=== PATIENT | female | born 1955 | race Caucasian/White ===

== ENCOUNTER 2022-01-05 10:11 | Inpatient (IN) ==
[2022-01-05] MEDS ORDERED: IOPAMIDOL 100 ML BOTTLE IV ONE (10:12)
[2022-01-05] MEDS ORDERED: 0.9 % SODIUM CHLORIDE 1,000 ML IV ONE (10:19)
[2022-01-05] MEDS ORDERED: POTASSIUM CHLORIDE 20 MEQ PACKET PO ONE (10:37)
[2022-01-05] MEDS ORDERED: POTASSIUM CHLORIDE 80 MEQ in DEXTROSE 5% IN WATER 1,000 ML IV ONE (10:37)
[2022-01-05] MEDS ORDERED: MAGNESIUM SULFATE 2 GM/50 ML BAG IV ONE ×2 (10:37→19:15)
[2022-01-05 10:38] LABS: POC Blood Urea Nitrogen 38 mg/dL (6-20); POC CO2 12 mmol/L (22-30); POC Calcium, Ionized 1.26 mmEq/L (1.16-1.32); POC Chloride 104 mEq/L (96-108); POC Creatinine 0.5 mg/dL (0.6-1.2); POC Glucose, Random 685 mg/dL (70-105); POC Hematocrit 44 % (36-48); POC Potassium 2.7 mEql/L (3.3-5.1); POC Sodium 133 mEq/L (133-145)
[2022-01-05] MEDS ORDERED: VANCOMYCIN PER PHARMACY IV ONE (10:49)
[2022-01-05] MEDS ORDERED: PIPERACILLIN SODIUM/TAZOBACTAM 4.5 GM in DEXTROSE 5% IN WATER 50 ML IV ONE (10:49)
[2022-01-05] MEDS ORDERED: LACTATED RINGERS 1,000 ML IV ONE ×2 (10:52→12:41)
--- NOTE | 2022-01-05 10:56 | Emergency Department Note ---
HPI General Chief complaint: Nausea/Vomiting/Diarrhea Stated complaint: Nausea/Vomiting, Elevated Blood Glucose Time Seen by Provider: 01/05/22 10:35 Source: patient Mode of arrival: ambulatory Limitations: no limitations History of Present Illness HPI Narrative: Patient is a 66-year-old lady who arrives emergency department by ambulance complaining of nausea and vomiting. The patient says she has been having nausea vomiting and difficulty tolerating food for about the last week. This is gradual in onset and has been progressively worsening. She has mild poorly localized abdominal pain associated with this. She denies any associated diarrhea. She has had subjective fever and chills as well. The patient also notes that several days ago she developed a boil in her groin and that recently ruptured and has been draining. This is moderately painful. She has never had anything like this before. She does not have any known medical conditions but is not seen a doctor for many years. Related Data Allergies Allergy/AdvReac Type Severity Reaction Status Date / Time codeine Allergy Intermediate Anxiety Verified 01/05/22 11:08 Review of Systems ROS ROS Narrative: Narrative: All systems ED: reviewed and negative except as stated. 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 Gen -patient is awake and alert and appears uncomfortable but in no acute distress. The patient is well groomed. HEENT -head is atraumatic. There is no conjunctival pallor or scleral icterus. Mucous membranes are very dry. CV -S1-S2 tachycardic and regular. Peripheral pulses are palpable. There is no JVD. Resp -patient has deep rapid respirations. Lungs are clear to auscultation bilaterally. There is no cyanosis. GI - Abdomen is soft and mildly tender to palpation diffusely. There is no guarding or rebound tenderness. Derm -there is a small ulcer in the left groin just lateral to the labia that is quite tender to palpation and draining thin clear fluid. There is exquisite tenderness to palpation of the suprapubic region as well as moderate underlying edema and erythema. There is no palpable crepitus or fluctuance to the soft tissues. There is mild erythema that blanches to light palpation in the groin. MSK -present extremities are atraumatic. Psych -patient has appropriate affect. The patient does not appear internally stimulated. Neuro -patient answers questions appropriately with fluent speech. Patient moves all present extremities equally. General Limitations: no limitations Course Vital Signs Vital signs: Vital Signs Temperature 97.7 F 01/05/22 10:13 Pulse Rate 112 H 01/05/22 10:13 Respiratory Rate 26 H 01/05/22 10:13 Blood Pressure 136/76 01/05/22 10:13 Pulse Oximetry (%) 97 01/05/22 10:13 Temperature 97.7 F 01/05/22 10:13 Pulse Rate 101 H 01/05/22 12:46 Respiratory Rate 23 H 01/05/22 12:46 Blood Pressure 178/79 01/05/22 12:46 Pulse Oximetry (%) 98 01/05/22 12:46 [facility] Narrative Medical decision making narrative: Patient presents with nausea vomiting and an inguinal lesion. Labs remarkable for hyperglycemia found hypokalemia and metabolic acidosis consistent with diabetic ketoacidosis. She also has a leukemoid white blood cell count. 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 Following my initial evaluation I did not initiate treatment with antibiotics for possible Stacy's gangrene. The patient's initial potassium was very low so I did not think would be safe to initiate an insulin drip. She was given IV fluids potassium and magnesium to facilitate absorption and repeat potassium shows significant improvement in her electrolytes. Given that we will initiate treatment with an insulin infusion. I discussed the patient's history examination diagnostic findings with Dr. Delaney. He will see the patient in the emergency department and will provide surgical management if the hospitalist service is able to provide medical management. I discussed the patient's history examination diagnostic finds with Dr. Langford. He accepts admission. I discussed the test results and need for operative intervention and glycemic control with the patient. She is agreeable with the plan. Critical care time I provided 38 minutes of critical care time. This was in addition to any separately billable procedures. The patient was given IV fluids and IV a ntibiotics to treat her necrotizing soft tissue infection. I obtained surgical consultation for definitive management of her infection. She was given IV insulin and IV fluids to treat her severe hyperglycemia and diabetic ketoacidosis. The patient was closely monitored for response to treatment and stability of vital signs throughout their emergency department stay. Lab Data Lab results reviewed: Yes I reviewed the patient's lab results. Result diagrams: 01/05/22 10:27 Labs: Lab Results 01/05/22 01/05/22 01/05/22 Range/Units 10:26 10:26 10:27 WBC 30.2 H* (4.5-11.0) K/mcL RBC 4.98 (3.59-5.38) M/mcL Hgb 13.9 (11.2-15.7) g/dL Hct 41.9 (34.1-44.9) % POC Hct 44 (36-48) % MCV 84.1 (80.0-100.0) fL MCH 27.9 (26.0-34.0) pg MCHC 33.2 (31.0-36.0) g/dL RDW 12.4 (11.5-14.5) % Plt Count 438 (140-440) K/mcL MPV 9.7 (7.4-10.4) fL Neut % (Auto) 88.1 H (38.0-78.0) % Lymph % (Auto) 3.1 L (15.5-49.0) % [place] % (Auto) 8.0 (1.0-12.0) % Eos % (Auto) 0.4 (0.0-7.0) % Baso % (Auto) 0.4 (0.0-2.0) % Lymph # (Auto) 0.95 L (1.50-4.80) K/mcL [place] # (Auto) 2.41 H (0.10-0.90) K/mcL Eos # (Auto) 0.13 (0.00-0.70) K/mcL Baso # (Auto) 0.12 (0.00-0.30) K/mcL Absolute Neutrophils 26.55 H (1.80-8.00) K/mcL VBG Lactic Acid (0.5-2.0) mmol/L POC Sodium 133 (133-145) mEq/L POC Potassium 2.7 L* (3.3-5.1) mEql/L POC Chloride 104 (96-108) mEq/L POC Total CO2 12 L (22-30) mmol/L POC BUN 38 H (6-20) mg/dL POC Creatinine 0.5 L (0.6-1.2) mg/dL POC Glucose 685 H* (70-105) mg/dL POC WB Ioniz Calcium 1.26 (1.16-1.32) mmEq/L Total Bilirubin (0.1-1.0) mg/dL Direct Bilirubin (0-0.3) mg/dL AST (<32) U/L ALT (<40) U/L Alkaline Phosphatase (39-117) U/L Total Protein (5.9-8.4) gm/dL Albumin (3.2-5.2) gm/dL Globulin (2.2-3.7) gm/dL Beta-Hydroxybutyrate 6.07 H (<0.27) mmol/L Urine Color Urine Appearance (Clear) Urine pH (5.0-9.0) Ur Specific [place] (1.000-1.035) Urine Protein (Negative) mg/dL Urine Glucose (UA) (Negative) mg/dL Urine Ketones (Negative) mg/dL Urine Occult Blood (Negative) joce/mcL Urine Nitrate (Negative) Urine Bilirubin (Negative) mg/dL Urine Urobilinogen mg/dL Ur Leukocyte Esterase (Negative) /uL Urine RBC (0-3) /hpf Urine WBC (0-4) /hpf Ur Squamous Epith Cells (0-4) /hpf Urine Bacteria (0) /hpf Urine Mucus (None) /hpf Ur Culture Indicated? 01/05/22 01/05/22 01/05/22 Range/Units 10:27 11:13 11:48 WBC (4.5-11.0) K/mcL RBC (3.59-5.38) M/mcL Hgb (11.2-15.7) g/dL Hct (34.1-44.9) % POC Hct (36-48) % MCV (80.0-100.0) fL MCH (26.0-34.0) pg MCHC (31.0-36.0) g/dL RDW (11.5-14.5) % Plt Count (140-440) K/mcL MPV (7.4-10.4) fL Neut % (Auto) (38.0-78.0) % Lymph % (Auto) (15.5-49.0) % [place] % (Auto) (1.0-12.0) % Eos % (Auto) (0.0-7.0) % Baso % (Auto) (0.0-2.0) % Lymph # (Auto) (1.50-4.80) K/mcL [place] # (Auto) (0.10-0.90) K/mcL Eos # (Auto) (0.00-0.70) K/mcL Baso # (Auto) (0.00-0.30) K/mcL Absolute Neutrophils (1.80-8.00) K/mcL VBG Lactic Acid 1.7 (0.5-2.0) mmol/L POC Sodium (133-145) mEq/L POC Potassium (3.3-5.1) mEql/L POC Chloride (96-108) mEq/L POC Total CO2 (22-30) mmol/L POC BUN (6-20) mg/dL POC Creatinine (0.6-1.2) mg/dL POC Glucose (70-105) mg/dL POC WB Ioniz Calcium (1.16-1.32) mmEq/L Total Bilirubin < 0.2 (0.1-1.0) mg/dL Direct Bilirubin < 0.2 (0-0.3) mg/dL AST 8 (<32) U/L ALT 8 (<40) U/L Alkaline Phosphatase 180 H (39-117) U/L Total Protein 6.7 (5.9-8.4) gm/dL Albumin 3.0 L (3.2-5.2) gm/dL Globulin 3.7 (2.2-3.7) gm/dL Beta-Hydroxybutyrate (<0.27) mmol/L Urine Color Yellow Urine Appearance Clear (Clear) Urine pH 5.0 (5.0-9.0) Ur Specific [place] 1.020 (1.000-1.035) Urine Protein Negative (Negative) mg/dL Urine Glucose (UA) 500 mg/dl A (Negative) mg/dL Urine Ketones >=160 mg/dl A (Negative) mg/dL Urine Occult Blood Moderate A (Negative) joce/mcL Urine Nitrate Negative (Negative) Urine Bilirubin Negative (Negative) mg/dL Urine Urobilinogen Normal mg/dL Ur Leukocyte Esterase Negative (Negative) /uL Urine RBC 0 (0-3) /hpf Urine WBC 1 (0-4) /hpf Ur Squamous Epith Cells < 1 (0-4) /hpf Urine Bacteria None (0) /hpf Urine Mucus Few A (None) /hpf Ur Culture Indicated? No 01/05/22 Range/Units 12:45 WBC (4.5-11.0) K/mcL RBC (3.59-5.38) M/mcL Hgb (11.2-15.7) g/dL Hct (34.1-44.9) % POC Hct 43 (36-48) % MCV (80.0-100.0) fL MCH (26.0-34.0) pg MCHC (31.0-36.0) g/dL RDW (11.5-14.5) % Plt Count (140-440) K/mcL MPV (7.4-10.4) fL Neut % (Auto) (38.0-78.0) % Lymph % (Auto) (15.5-49.0) % [place] % (Auto) (1.0-12.0) % Eos % (Auto) (0.0-7.0) % Baso % (Auto) (0.0-2.0) % Lymph # (Auto) (1.50-4.80) K/mcL [place] # (Auto) (0.10-0.90) K/mcL Eos # (Auto) (0.00-0.70) K/mcL Baso # (Auto) (0.00-0.30) K/mcL Absolute Neutrophils (1.80-8.00) K/mcL VBG Lactic Acid (0.5-2.0) mmol/L POC Sodium 134 (133-145) mEq/L POC Potassium 3.8 (3.3-5.1) mEql/L POC Chloride 110 H (96-108) mEq/L POC Total CO2 10 L (22-30) mmol/L POC BUN 41 H (6-20) mg/dL POC Creatinine 0.4 L (0.6-1.2) mg/dL POC Glucose 542 H* (70-105) mg/dL POC WB Ioniz Calcium 1.15 L (1.16-1.32) mmEq/L Total Bilirubin (0.1-1.0) mg/dL Direct Bilirubin (0-0.3) mg/dL AST (<32) U/L ALT (<40) U/L Alkaline Phosphatase (39-117) U/L Total Protein (5.9-8.4) gm/dL Albumin (3.2-5.2) gm/dL Globulin (2.2-3.7) gm/dL Beta-Hydroxybutyrate (<0.27) mmol/L Urine Color Urine Appearance (Clear) Urine pH (5.0-9.0) Ur Specific [place] (1.000-1.035) Urine Protein (Negative) mg/dL Urine Glucose (UA) (Negative) mg/dL Urine Ketones (Negative) mg/dL Urine Occult Blood (Negative) joce/mcL Urine Nitrate (Negative) Urine Bilirubin (Negative) mg/dL Urine Urobilinogen mg/dL Ur Leukocyte Esterase (Negative) /uL Urine RBC (0-3) /hpf Urine WBC (0-4) /hpf Ur Squamous Epith Cells (0-4) /hpf Urine Bacteria (0) /hpf Urine Mucus (None) /hpf Ur Culture Indicated? ED POC Tests ED POC Tests: MARY - SARS Antigen Negative EKG Data EKG #1: EKG attestation: Yes I reviewed and interpreted this EKG. EKG results narrative: EKG performed at 12:58 PM: Sinus rhythm with PVCs, rate 107. Normal P wave morphology. Poor R wave progression throughout the precordial leads. No ST segment deviation. Normal IL QRS and QTc duration. No old EKG immediately available for comparison. EKG was interpreted by me. 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
[2022-01-05 11:16] LABS: Basophils # (Auto) 0.12 K/mcL (0.00-0.30); Basophils % (Auto) 0.4 % (0.0-2.0); Eosinophils # (Auto) 0.13 K/mcL (0.00-0.70); Eosinophils % (Auto) 0.4 % (0.0-7.0); Hematocrit 41.9 % (34.1-44.9); Hemoglobin 13.9 g/dL (11.2-15.7); Lymphocytes # (Auto) 0.95 K/mcL (1.50-4.80); Lymphocytes % (Auto) 3.1 % (15.5-49.0); Mean Cell Volume 84.1 fL (80.0-100.0); Mean Corpuscular HGB Conc 33.2 g/dL (31.0-36.0); Mean Platelet Volume 9.7 fL (7.4-10.4); Monocytes # (Auto) 2.41 K/mcL (0.10-0.90); Platelet Count 438 K/mcL (140-440); RBC 4.98 M/mcL (3.59-5.38); Red Cell Distribution Width 12.4 % (11.5-14.5); WBC 30.2 K/mcL (4.5-11.0)
[2022-01-05 12:19] LABS: ALT/SGPT 8 U/L (<40); AST/SGOT 8 U/L (<32); Alkaline Phosphatase 180 U/L (39-117); Bilirubin,Direct < 0.2 mg/dL (0-0.3); Bilirubin,Total < 0.2 mg/dL (0.1-1.0); Globulin 3.7 gm/dL (2.2-3.7)
[2022-01-05 12:33] LABS: Appearance,Urine Clear (Clear); Bilirubin,Urine Negative (Negative); Color,Urine Yellow; Culture Indicated,Urine No; Ketones,Urine >=160 mg/dL mg/dL (Negative); Leukocyte Esterase,Urine Negative /uL (Negative); Mucus,Urine FEW /hpf; Nitrate,Urine Negative (Negative); Protein,Urine Negative (Negative); Urine Blood Moderate ery/mcL (Negative); Urine RBC 0 /hpf (0-3); Urine Squamous Epithelial Cell < 1 /hpf (0-4); Urine WBC 1 /hpf (0-4); Urobilinogen,Urine Normal
[2022-01-05 12:55] LABS: POC Blood Urea Nitrogen 41 mg/dL (6-20); POC CO2 10 mmol/L (22-30); POC Calcium, Ionized 1.15 mmEq/L (1.16-1.32); POC Chloride 110 mEq/L (96-108); POC Creatinine 0.4 mg/dL (0.6-1.2); POC Glucose, Random 542 mg/dL (70-105); POC Hematocrit 43 % (36-48); POC Potassium 3.8 mEql/L (3.3-5.1); POC Sodium 134 mEq/L (133-145)
[2022-01-05] MEDS ORDERED: SODIUM CHLORIDE 0.9% IV ONE (13:00)
[2022-01-05] MEDS ORDERED: POTASSIUM CHLORIDE IV ONE (13:00)
[2022-01-05] MEDS ORDERED: INSULIN REGULAR, HUMAN 50 UNIT in 0.9 % SODIUM CHLORIDE 99.5 ML IV SCH (13:15)
--- NOTE | 2022-01-05 13:20 | Cat Scan Report ---
CLINICAL INFORMATION: Left vulvar pain and swelling COMPARISON: None. TECHNIQUE:, 80 cc of Isovue-370 were injected intravenously, and 60 seconds later, 0.625 mm helical slices were made kidneys through the subtrochanteric regions Following reconstruction, 2.5 mm sagittal, coronal and axial reformatted images were processed and reviewed at bone soft tissue windows. The exam was performed using radiation dose optimization techniques including, but not limited to, automated exposure control, adjustment of the mA and/or kV according to patient size and use of iterative reconstruction technique. FINDINGS: In the subcutaneous fat of the left lower anterior pelvic wall , there is a 10 cm region of gas and phlegmonous inflammation which extends to the left lateral perivulvar region. It is suspicious for Stacy's gangrene. Muscle fascial planes are, otherwise, normal. Pelvic images show normal urinary bladder. Uterus and both ovaries are normal in size, configuration and attenuation. The visualized small bowel, appendix region and large bowel are grossly normal. Bone windows show no osseous abnormality IMPRESSION: 10 cm region of extensive gas and phlegmonous inflammation in the subcutaneous fat of the left lower anterior pelvic wall with extension into the left lateral perivulvar region. Findings suggestive of Stacy's gangrene. Interpreted and Authenticated by: Neeraj Calloway 01/05/22
--- NOTE | 2022-01-05 13:42 | Internal Med History&Physical ---
HPI History of Present Illness Patient information: Note initiated : 01/05/22 at 1:33 pm Service Date, if different from initiated Date: [] Patient: Amber Navarro a 66 y/o F admitted on for Nausea/Vomiting, Elevated Blood Glucose. Chief Complaint: [groin pain, weakness] Chief complaint: groin pain, weakness History of present illness: Ms. Navarro is a 66 year old F no past medical history, presenting with general body weakness and left groin pain for 2 weeks. There was no prior similar episode. Patient does not remember any trauma or injury to her groin but she does shave herself. About 2 weeks ago she started to notice pain and swelling of her left groin around her labia majora, and it burst open spontaneously about 4 days ago. It is associated with severe aching constant pain of her entire left groin with radiation to the surrounding body regions. She is also complaining of general body weakness, decreased appetite, fever and chills. She presented to our ED today due to worsening of her symptoms. Labs significant for severe leukocytosis with WBC 30.2. Initial serum potassium level 2.7, initial POC glucose 685. BUN and creatinine 38 and 0.5, respectively suggesting degree of dehydration as well. Serum bicarb of 12 and anion gap of 17. Beta hydroxybutyrate also elevated. Serum lactic acid 1.7. Pelvic CT showing 10 cm region of extensive gas and phlegmonous inflammation in the subcutaneous fat of the left lower anterior pelvic wall with extension into the left lateral perivalvular regions. Findings suggestive of Stacy's gangrene. Constitutional Constitutional: Present chills, fatigue, fever(s) and weakness; Absent excessive sweating EENT Eyes: Absent blurry vision, change in vision, loss of vision or other visual disturbances Ears: Absent decreased hearing or tinnitus Nose, mouth and throat: Absent abnormal hearing, dry mouth, headache(s), nasal congestion or sore throat Cardiovascular Cardiovascular: Absent chest pain, chest pain at rest, edema, irregular heart rhythm or palpatations Respiratory Respiratory: Absent cough, dyspnea or wheezing Gastrointestinal Gastrointestinal: Absent abdominal pain, constipation, diarrhea, nausea or vomiting Genitourinary Genitourinary: Present as per HPI Musculoskeletal Musculoskeletal: Absent back pain, deformity, limited range of motion, muscle cramps, muscle weakness or numbness Integumentary Integumentary: Absent lesions, rash or wounds Neurological Neurological: Absent focal weakness, headache(s) or numbness Psychiatric Psychiatric: Absent anxiety, depression or hallucinations PFSH PFSH All Active Problems (Updated 01/05/22 @ 13:43 by Tae Langford MD) Hypokalemia (Acute) Diabetic keto-acidosis (Acute) 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) Social History alcohol intake frequency: does not drink substance use type: marijuana MEDS/ALLERGIES Home Medications and Allergies Allergies Allergy/AdvReac Type Severity Reaction Status Date / Time codeine Allergy Intermediate Anxiety Verified 01/05/22 11:08 EXAM Constitutional Vitals: Temp Pulse Resp BP Pulse Ox 36.5 C 108 H 21 178/79 100 01/05/22 10:13 01/05/22 13:23 01/05/22 13:23 01/05/22 12:46 01/05/22 13:23 General appearance: cooperative and no acute distress Head Head exam: Present atraumatic and normocephalic Eye Eye exam: Present EOMI and PERRL ENT ENT exam: Present mucous membranes moist, normal exam and normal external ear exam Neck Neck exam: Present normal inspection; Absent lymphadenopathy, tenderness or thyromegaly Respiratory Respiratory exam: Absent accessory muscle use, respiratory distress or wheezes Cardiovascular Cardiovascular exam: Present tachycardia GI/Abdominal GI/Abdominal exam: Present normal bowel sounds and soft; Absent organomegaly or tenderness External exam: Present erythema and lesions; Absent normal external exam Additional comments: tenderness to palpation, induration, swelling, warmth to touch, 5mm opening with foul smell pustular discharge of the left labia majora Extremities Exam Extremities exam: Present full ROM, normal capillary refill and normal inspection; Absent tenderness Neurological Exam Neurological exam: Present alert, CN II-XII intact and oriented X3; Absent motor sensory deficit Psychiatric Psychiatric exam: Present normal affect and normal mood; Absent anxious or depressed Skin Skin exam: Present dry and intact DATA Data Completed and Pending Labs: Labs from last 24 hours 01/05/22 01/05/22 01/05/22 12:45 11:48 11:13 WBC RBC Hgb Hct POC Hct 43 MCV MCH MCHC RDW Plt Count MPV Neut % (Auto) Lymph % (Auto) [place] % (Auto) Eos % (Auto) Baso % (Auto) Lymph # (Auto) [place] # (Auto) Eos # (Auto) Baso # (Auto) Absolute Neutrophils VBG Lactic Acid 1.7 POC Sodium 134 POC Potassium 3.8 POC Chloride 110 H POC Total CO2 10 L POC BUN 41 H POC Creatinine 0.4 L POC Glucose 542 H* POC WB Ioniz Calcium 1.15 L Total Bilirubin Direct Bilirubin AST ALT Alkaline Phosphatase Total Protein Albumin Globulin Beta-Hydroxybutyrate Urine Color Yellow Urine Appearance Clear Urine pH 5.0 Ur Specific [place] 1.020 Urine Protein Negative Urine Glucose (UA) 500 mg/dl A Urine Ketones >=160 mg/dl A Urine Occult Blood Moderate A Urine Nitrate Negative Urine Bilirubin Negative Urine Urobilinogen Normal Ur Leukocyte Esterase Negative Urine RBC 0 Urine WBC 1 Ur Squamous Epith Cells < 1 Urine Bacteria None Urine Mucus Few A Ur Culture Indicated? No 01/05/22 01/05/22 01/05/22 10:27 10:27 10:26 WBC 30.2 H* RBC 4.98 Hgb 13.9 Hct 41.9 POC Hct MCV 84.1 MCH 27.9 MCHC 33.2 RDW 12.4 Plt Count 438 MPV 9.7 Neut % (Auto) 88.1 H Lymph % (Auto) 3.1 L [place] % (Auto) 8.0 Eos % (Auto) 0.4 Baso % (Auto) 0.4 Lymph # (Auto) 0.95 L [place] # (Auto) 2.41 H Eos # (Auto) 0.13 Baso # (Auto) 0.12 Absolute Neutrophils 26.55 H VBG Lactic Acid POC Sodium POC Potassium POC Chloride POC Total CO2 POC BUN POC Creatinine POC Glucose POC WB Ioniz Calcium Total Bilirubin < 0.2 Direct Bilirubin < 0.2 AST 8 ALT 8 Alkaline Phosphatase 180 H Total Protein 6.7 Albumin 3.0 L Globulin 3.7 Beta-Hydroxybutyrate 6.07 H Urine Color Urine Appearance Urine pH Ur Specific [place] Urine Protein Urine Glucose (UA) Urine Ketones Urine Occult Blood Urine Nitrate Urine Bilirubin Urine Urobilinogen Ur Leukocyte Esterase Urine RBC Urine WBC Ur Squamous Epith Cells Urine Bacteria Urine Mucus Ur Culture Indicated? 01/05/22 10:26 WBC RBC Hgb Hct POC Hct 44 MCV MCH MCHC RDW Plt Count MPV Neut % (Auto) Lymph % (Auto) [place] % (Auto) Eos % (Auto) Baso % (Auto) Lymph # (Auto) [place] # (Auto) Eos # (Auto) Baso # (Auto) Absolute Neutrophils VBG Lactic Acid POC Sodium 133 POC Potassium 2.7 L* POC Chloride 104 POC Total CO2 12 L POC BUN 38 H POC Creatinine 0.5 L POC Glucose 685 H* POC WB Ioniz Calcium 1.26 Total Bilirubin Direct Bilirubin AST ALT Alkaline Phosphatase Total Protein Albumin Globulin Beta-Hydroxybutyrate Urine Color Urine Appearance Urine pH Ur Specific [place] Urine Protein Urine Glucose (UA) Urine Ketones Urine Occult Blood Urine Nitrate Urine Bilirubin Urine Urobilinogen Ur Leukocyte Esterase Urine RBC Urine WBC Ur Squamous Epith Cells Urine Bacteria Urine Mucus Ur Culture Indicated? 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 Delaney for surgical management Tylenol PRN fever Percocet PRN moderate pain Dilaudid IV PRN severe pain 3. Hypokalemia: s/p IV potassium replacement in the ED 1/2NS w/ KCl 20mEq @250cc/hr when anion gap is elevated (>14) and blood glucose >=200 D5 1/2NS w/ KCl 20mEq @250cc/hr when anion gap is elevated (>14) and blood glucose <200 Also check serum Mg and replace as needed GI ppx: not currently indicated DVT ppx: SCDs Code status: Full Prognosis: extremely guarded Disposition: inpatient ICU Critical Care Time: 1hr Time Spent With Patient Time: Total time spent is greater than 50% in coordination of care (as documented) at patient's floor/unit and/or counseling patient: Total time spent with greater than 50% in coordination of care (as documented) at patient's floor/unit and/or counseling patient:: Greater than 35 minutes
--- NOTE | 2022-01-05 13:55 | General Surgery Consult Note ---
HPI Data of Consult Patient: new to practice Consult date: 01/05/22 Requesting physician: Luis Guzman Primary Care Provider: PCP No Consult Narrative Chief complaint: Pain and soreness in region of genitalia Reason for consult: Stacy's Gangrene History of present illness: Amber is seen in consultation in the ER after presenting with nausea, vomiting and generalized symptoms of severe malaise. Work up revealed findings of Diabetic Ketoacidosis as well as a soft tissue infection involving the left genitalia and suprapubic region. She has had an open sore there draining some fluid for an unkown period of time. CT Scan has confirmed clinical findings and we were asked to see her in consultation. She has no known cardiopulmonary issues but has been absent any real medical care for many years per her history and was unaware she is diabetic. She is not on any oral anticoagulants and denies any prior heart issues. She does not have chest pains or use oxygen. 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) Social History alcohol intake frequency: does not drink substance use type: marijuana MEDS/ALLERGIES Home Medications and Allergies Allergies Allergy/AdvReac Type Severity Reaction Status Date / Time codeine Allergy Intermediate Anxiety Verified 01/05/22 11:08 Physical Examination Vital Signs Vital signs: Temp Pulse Resp BP Pulse Ox 97.7 F 108 H 21 178/79 100 01/05/22 10:13 01/05/22 13:23 01/05/22 13:23 01/05/22 12:46 01/05/22 13:23 General physical appearance General physical exam: moderate distress, moderate pain and chronically ill Eyes Eye exam: normal ocular movement; negative icteric ENT ENT exam: normal pinna Head Head exam IM: Present atraumatic, normal inspection and normocephalic Neck Neck exam: trachea midline and no lymphadenopathy Cardiovascular Cardiovascular exam IM: Present normal rate and rhythm (mildy tachycardic ) and RRR Respiratory Respiratory exam: normal respiratory effort and other (no respiratory distress ) Abdomen Abdomen: Present soft and tender (TTP in the indurated suprapubic region ) Genitourinary Genitourinary (Female): Present other (swollen genitalia with severe pain and induration involving the left perivulvar/paralabial region that continues up to the suprapubic region with a small ulcerated opening on the left side as well ) Rectum Rectum: Present other (the perianal area seems uninvolved and does not appear to be a source of infection ) Neurologic Neurologic: Present other (awake and conversant with some confusion ) Psychiatric Psychiatric: Present other (awake and conversant ) Results Labs Result diagrams: 01/05/22 10:27 01/05/22 10:26 Labs: Abnormal lab results 01/05/22 01/05/22 01/05/22 Range/Units 10:26 10:26 10:27 WBC 30.2 H* (4.5-11.0) K/mcL Neut % (Auto) 88.1 H (38.0-78.0) % Lymph % (Auto) 3.1 L (15.5-49.0) % Lymph # (Auto) 0.95 L (1.50-4.80) K/mcL [place] # (Auto) 2.41 H (0.10-0.90) K/mcL Absolute Neutrophils 26.55 H (1.80-8.00) K/mcL POC Potassium 2.7 L* (3.3-5.1) mEql/L POC Chloride (96-108) mEq/L POC Total CO2 12 L (22-30) mmol/L POC BUN 38 H (6-20) mg/dL POC Creatinine 0.5 L (0.6-1.2) mg/dL POC Glucose 685 H* (70-105) mg/dL POC WB Ioniz Calcium (1.16-1.32) mmEq/L Alkaline Phosphatase (39-117) U/L Albumin (3.2-5.2) gm/dL Beta-Hydroxybutyrate 6.07 H (<0.27) mmol/L Urine Glucose (UA) (Negative) mg/dL Urine Ketones (Negative) mg/dL Urine Occult Blood (Negative) joce/mcL Urine Mucus (None) /hpf 01/05/22 01/05/22 01/05/22 Range/Units 10:27 11:48 12:45 WBC (4.5-11.0) K/mcL Neut % (Auto) (38.0-78.0) % Lymph % (Auto) (15.5-49.0) % Lymph # (Auto) (1.50-4.80) K/mcL [place] # (Auto) (0.10-0.90) K/mcL Absolute Neutrophils (1.80-8.00) K/mcL POC Potassium (3.3-5.1) mEql/L POC Chloride 110 H (96-108) mEq/L POC Total CO2 10 L (22-30) mmol/L POC BUN 41 H (6-20) mg/dL POC Creatinine 0.4 L (0.6-1.2) mg/dL POC Glucose 542 H* (70-105) mg/dL POC WB Ioniz Calcium 1.15 L (1.16-1.32) mmEq/L Alkaline Phosphatase 180 H (39-117) U/L Albumin 3.0 L (3.2-5.2) gm/dL Beta-Hydroxybutyrate (<0.27) mmol/L Urine Glucose (UA) 500 mg/dl A (Negative) mg/dL Urine Ketones >=160 mg/dl A (Negative) mg/dL Urine Occult Blood Moderate A (Negative) joce/mcL Urine Mucus Few A (None) /hpf Diabetes panel 01/05/22 Range/Units 10:27 AST 8 (<32) U/L ALT 8 (<40) U/L Alkaline Phosphatase 180 H (39-117) U/L Total Protein 6.7 (5.9-8.4) gm/dL Albumin 3.0 L (3.2-5.2) gm/dL Calcium panel 01/05/22 Range/Units 10:27 Albumin 3.0 L (3.2-5.2) gm/dL Adrenal panel 01/05/22 Range/Units 10:27 Total Bilirubin < 0.2 (0.1-1.0) mg/dL AST 8 (<32) U/L ALT 8 (<40) U/L Alkaline Phosphatase 180 H (39-117) U/L Total Protein 6.7 (5.9-8.4) gm/dL Albumin 3.0 L (3.2-5.2) gm/dL All other labs normal. 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 Agree with need for emergent surgery to Examine Under Anesthesia and proceed wi th aggressive washout and debridement Dr Langford has kindly agreed to admit and manage the patients contributory medical issues and we appreciate he and Dr Anthony assistance very much Issues regarding the diagnosis and planned intervention were discussed with the patient and her at length along with a full discussion of Risks, Benefits, Potential Complications and Alternative Treatment Options, all of which were reviewed and discussed at length with particular emphasis on the seriousness of the diagnosis and probable need for prolonged wound care. They indicate their understanding and give full consent Status: Acute Time Spent With Patient Time: Total time spent is greater than 50% in coordination of care (as documented) at patient's floor/unit and/or counseling patient:
[2022-01-05] MEDS: VANCOMYCIN 1,000 MG in 0.9 % SODIUM CHLORIDE 250 ML IV ONE ×2 (14:05→14:15)
[2022-01-05 14:31] LABS: ALT/SGPT 8 U/L (<40); AST/SGOT 9 U/L (<32); Alkaline Phosphatase 182 U/L (39-117); Bilirubin,Direct < 0.2 mg/dL (0-0.3); Bilirubin,Total < 0.2 mg/dL (0.1-1.0); Blood Urea Nitrogen 35 mg/dL (8-23); Calcium 8.9 mg/dL (8.6-10.4); Carbon Dioxide 11 mmol/L (22-30); Chloride 94 mmol/L (96-108); Glomerular Filtration Rate 75; Glucose 702 mg/dL (70-105); Lactate Dehydrogenase 238 U/L (135-225); Phosphorous 3.3 mg/dL (2.5-4.5); Triglycerides 223 mg/dL (<150); Uric Acid 9.6 mg/dL (2.5-8.0)
[2022-01-05] MEDS ORDERED: METOPROLOL TARTRATE 5 MG/5 ML VIAL IV PRN (15:11)
[2022-01-05] MEDS ORDERED: ACETAMINOPHEN 1,000 MG/100 ML BAG IV ONE (15:11)
[2022-01-05] MEDS ORDERED: NALOXONE HCL 0.4 MG/ML VIAL IV PRN (15:11)
[2022-01-05] MEDS ORDERED: IPRATROPIUM/ALBUTEROL 3 ML AMPUL.NEB NEB PRN ×2 (15:11→15:50)
[2022-01-05] MEDS ORDERED: LACTATED RINGERS 250 ML IV PRN (15:11)
[2022-01-05] MEDS ORDERED: ONDANSETRON 4 MG/2 ML VIAL IV PRN (15:11)
[2022-01-05] MEDS ORDERED: BENZOCAINE/MENTHOL 1 LOZENGE PO PRN (15:11)
[2022-01-05] MEDS ORDERED: FLUMAZENIL 0.1 MG/ML ML IV PRN (15:11)
[2022-01-05] MEDS ORDERED: LABETALOL 5 MG/ML ML IV PRN (15:11)
[2022-01-05] MEDS ORDERED: LACTATED RINGERS 1,000 ML IV SCH (15:15)
[2022-01-05] MEDS ORDERED: GENTAMICIN SULFATE 800 MG/20 ML VIAL IR ONE (15:16)
[2022-01-05] MEDS: fentaNYL 100 MCG/2 ML VIAL IV PRN ×2 (15:29→15:31)
[2022-01-05] MEDS ORDERED: VANCOMYCIN PER PHARMACY IV SCH (15:50)
[2022-01-05] MEDS ORDERED: ACETAMINOPHEN 325 MG TABLET PO PRN (15:50)
[2022-01-05] MEDS ORDERED: SENNOSIDES 8.8 MG/5 ML ML PT PRN (15:50)
[2022-01-05] MEDS: hydrALAZINE 20 MG/ML VIAL IV PRN (16:15)
[2022-01-05] MEDS: 0.9 % SODIUM CHLORIDE 10 ML SYRINGE IV SCH ×2 (16:15→22:01)
[2022-01-05 16:41] LABS: ABG Methemoglobin 0.1 % (0.4-1.5); Total Hemoglobin 12.9 gm/Dl (12.0-15.0); VBG Base Excess -14 (-2-3); VBG HCO3 13.9 mmol/L (24.0-28.0); VBG Oxygen Saturation 80.4 % (40.0-70.0); VBG PCO2 37.9 mmHg (41.0-51.0); VBG PH 7.18 U (7.32-7.42); VBG PO2 55.4 mmHg (25.0-40.0); VBG Total CO2 15.1 mmol/L (25.0-29.0)
[2022-01-05] MEDS: POTASSIUM CHLORIDE 20 MEQ in 0.45 % SODIUM CHLORIDE 1,000 ML IV SCH ×2 (16:44→21:09)
[2022-01-05] MEDS: PIPERACILLIN SODIUM/TAZOBACTAM 3.375 GM in DEXTROSE 5% IN WATER 50 ML IV SCH (16:47)
[2022-01-05 16:49] LABS: Carbon Dioxide 9 mmol/L (22-30); Chloride 92 mmol/L (96-108)
[2022-01-05] MEDS: DEXTROSE 5%-1/2NS W/20MEQ KCL 1,000 ML IV SCH ×4 (16:58→23:13)
--- NOTE | 2022-01-05 17:53 | Brief Operative Note ---
Brief Operative Note Date of procedure: 01/05/22 Pre-op diagnosis: Stacy's Gangrene Post-op diagnosis: same Procedure: Examination Under Anesthesia with Incision, Debridement and Washout Grafts/Implants: No Anesthesia: GETA Findings: Left Vulvar focus of Stacy's Gangrene with para-labial involvement and extension to the suprapubic region - cultures sent and debridement to healthy non necrotic margins; all areas of extensive necrosis debrided away Complications: none Surgeon: Trey Delaney Estimated blood loss (cc): 50 Specimens Removed/Pathology: other (swab cultures sent x 2 ) Condition: stable Disposition: PACU
[2022-01-05 18:04] LABS: Neutrophils % (Auto) 88.1 % (38.0-78.0)
[2022-01-05] MEDS: HYDROmorphone 0.5 MG/0.5 ML SYRINGE IV PRN (19:00)
[2022-01-05] MEDS ORDERED: fentaNYL 100 MCG/2 ML VIAL IV ONE (19:15)
[2022-01-05] MEDS ORDERED: KETAMINE 50 MG/ML Syringe (ANEST) IV ONE (19:15)
[2022-01-05] MEDS ORDERED: ONDANSETRON 4 MG/2 ML VIAL ONE (19:15)
[2022-01-05] MEDS ORDERED: LIDOCAINE HCL/PF 100 MG/5 ML SYRINGE IV ONE (19:15)
[2022-01-05] MEDS ORDERED: DEXAMETHASONE 10 MG/ML VIAL ONE (19:15)
[2022-01-05] MEDS ORDERED: PROPOFOL 200 MG/20 ML VIAL IV ONE (19:15)
[2022-01-05] MEDS ORDERED: GLYCOPYRROLATE 0.2 MG/ML VIAL IV ONE (19:15)
[2022-01-05] MEDS ORDERED: MIDAZOLAM 2 MG/2 ML VIAL ONE (19:15)
[2022-01-05 19:18] LABS: Estimated Average Glucose(eAG) 252 mg/dL; Hemoglobin A1C 10.4 % Hgb (4.0-6.0)
[2022-01-05 20:25] LABS: ABG Methemoglobin 0 % (0.4-1.5); Total Hemoglobin 12.1 gm/Dl (12.0-15.0); VBG Base Excess -11 (-2-3); VBG HCO3 13.7 mmol/L (24.0-28.0); VBG Oxygen Saturation 88.4 % (40.0-70.0); VBG PCO2 27.6 mmHg (41.0-51.0); VBG PH 7.31 U (7.32-7.42); VBG PO2 67.9 mmHg (25.0-40.0); VBG Total CO2 14.6 mmol/L (25.0-29.0)
[2022-01-05] MEDS: INSULIN REGULAR, HUMAN 50 UNIT in 0.9 % SODIUM CHLORIDE 99.5 ML IV SCH (21:08)
[2022-01-05] MEDS: DOCUSATE SODIUM 100 MG CAPSULE PO SCH (21:09)
[2022-01-05] MEDS ORDERED: VANCOMYCIN 500 MG in 0.9 % SODIUM CHLORIDE 100 ML IV ONE (22:00)
[2022-01-06] MEDS: PIPERACILLIN SODIUM/TAZOBACTAM 3.375 GM in DEXTROSE 5% IN WATER 50 ML IV SCH ×4 (00:07→18:05)
[2022-01-06 00:10] LABS: ABG Methemoglobin 0 % (0.4-1.5); Total Hemoglobin 12.3 gm/Dl (12.0-15.0); VBG Base Excess -12 (-2-3); VBG HCO3 12.4 mmol/L (24.0-28.0); VBG Oxygen Saturation 94.5 % (40.0-70.0); VBG PCO2 23.8 mmHg (41.0-51.0); VBG PH 7.33 U (7.32-7.42); VBG PO2 87.1 mmHg (25.0-40.0); VBG Total CO2 13.1 mmol/L (25.0-29.0)
[2022-01-06] MEDS: POTASSIUM CHLORIDE 20 MEQ in 0.45 % SODIUM CHLORIDE 1,000 ML IV SCH ×3 (01:01→09:33)
[2022-01-06] MEDS ORDERED: INSULIN REGULAR, HUMAN 1 UNIT/0.01 ML UNIT ONE (02:12)
[2022-01-06] MEDS: HYDROmorphone 0.5 MG/0.5 ML SYRINGE IV PRN (02:26)
[2022-01-06] MEDS: INSULIN REGULAR, HUMAN 50 UNIT in 0.9 % SODIUM CHLORIDE 99.5 ML IV SCH ×2 (03:08→10:39)
[2022-01-06] MEDS: DEXTROSE 5%-1/2NS W/20MEQ KCL 1,000 ML IV SCH ×2 (03:47→08:29)
[2022-01-06] MEDS: 0.9 % SODIUM CHLORIDE 10 ML SYRINGE IV SCH ×3 (04:17→22:00)
[2022-01-06 04:29] LABS: ABG Methemoglobin 0.1 % (0.4-1.5); Total Hemoglobin 12.9 gm/Dl (12.0-15.0); VBG Base Excess -10 (-2-3); VBG HCO3 14.9 mmol/L (24.0-28.0); VBG Oxygen Saturation 79.8 % (40.0-70.0); VBG PCO2 30.9 mmHg (41.0-51.0); VBG PO2 46.7 mmHg (25.0-40.0); VBG Total CO2 15.8 mmol/L (25.0-29.0)
[2022-01-06 04:35] LABS: Basophils # (Auto) 0.14 K/mcL (0.00-0.30); Basophils % (Auto) 0.4 % (0.0-2.0); Eosinophils # (Auto) 0 K/mcL (0.00-0.70); Eosinophils % (Auto) 0 % (0.0-7.0); Hematocrit 37.9 % (34.1-44.9); Hemoglobin 13.4 g/dL (11.2-15.7); Lymphocytes # (Auto) 1.05 K/mcL (1.50-4.80); Mean Cell Volume 79.5 fL (80.0-100.0); Mean Corpuscular HGB Conc 35.4 g/dL (31.0-36.0); Monocytes % (Auto) 5.4 % (1.0-12.0); Neutrophils % (Auto) 91.2 % (38.0-78.0); Platelet Count 352 K/mcL (140-440); RBC 4.77 M/mcL (3.59-5.38); Red Cell Distribution Width 12.3 % (11.5-14.5); WBC 35.2 K/mcL (4.5-11.0)
[2022-01-06 04:56] LABS: ALT/SGPT 10 U/L (<40); AST/SGOT 17 U/L (<32); Albumin 2.5 gm/dL (3.2-5.2); Albumin/Globulin Ratio 0.7 (1.0-2.3); Alkaline Phosphatase 142 U/L (39-117); Bilirubin,Total < 0.2 mg/dL (0.1-1.0); Blood Urea Nitrogen 15 mg/dL (8-23); Calcium 8.3 mg/dL (8.6-10.4); Carbon Dioxide 13 mmol/L (22-30); Chloride 112 mmol/L (96-108); Globulin 3.6 gm/dL (2.2-3.7); Glomerular Filtration Rate 99; Glucose 167 mg/dL (70-105); Phosphorous 0.4 mg/dL (2.5-4.5)
[2022-01-06] MEDS: hydrALAZINE 20 MG/ML VIAL IV PRN ×2 (05:54→17:15)
[2022-01-06] MEDS: ONDANSETRON 4 MG/2 ML VIAL IV PRN ×3 (06:37→19:01)
[2022-01-06] MEDS ORDERED: DEXTROSE 50% 50 ML VIAL IV PRN (07:36)
[2022-01-06] MEDS ORDERED: DEXTROSE 31 GM ORAL.SUSP PO PRN (07:36)
--- NOTE | 2022-01-06 07:41 | Internal Med Progress Note ---
SUBJECTIVE Subjective Patient information: Note initiated : 01/06/22 at 7:37 am Service Date, if different from initiated Date: [] Patient: Amber Navarro a 66 y/o F admitted on 01/05/22 for Nausea/Vomiting, Elevated Blood Glucose. Chief Complaint: [] Interval history: Ms. Navarro is a 66 year old F no past medical history, presenting with general b love weakness and left groin pain for 2 weeks. There was no prior similar episode. Patient does not remember any trauma or injury to her groin but she does shave herself. About 2 weeks ago she started to notice pain and swelling of her left groin around her labia majora, and it burst open spontaneously about 4 days ago. It is associated with severe aching constant pain of her entire left groin with radiation to the surrounding body regions. She is also complaining of general body weakness, decreased appetite, fever and chills. She presented to our ED today due to worsening of her symptoms. Labs significant for severe leukocytosis with WBC 30.2. Initial serum potassium level 2.7, initi al POC glucose 685. BUN and creatinine 38 and 0.5, respectively suggesting degree of dehydration as well. Serum bicarb of 12 and anion gap of 17. Beta hydroxybutyrate also elevated. Serum lactic acid 1.7. Pelvic CT showing 10 cm region of extensive gas and phlegmonous inflammation in the subcutaneous fat of the left lower anterior pelvic wall with extension into the left lateral perivalvular regions. Findings suggestive of Stacy's gangrene. 01/06: s/p wound debridement by Dr. Delaney yesterday. Blood and wound cultures no growth to date. afebrile overnight. Continue Vancomycin and Zosyn. Anion gas has been closed this morning with blood glucose 149-->will transition from insulin drip to SQ insulin therapy. Patient is c/o mild left groin pain, denies any fever or chills or sweating. Constitutional Vitals: Vital Signs Temp Pulse Resp BP Pulse Ox 36.5 C 95 H 16 166/61 98 01/06/22 04:01 01/06/22 07:01 01/06/22 07:01 01/06/22 07:01 01/06/22 07:01 Period Temp Pulse Resp BP Sys/[place] Pulse Ox Last 24 Hr 36.2 C-36.6 C 81-114 09-05 127-199/55-154 94-100 Intake and Output 01/05/22 01/06/22 01/06/22 21:59 05:59 13:59 Intake Total 3178 3233 113 Output Total 1130 430 215 Balance 2048 2803 -102 Weight 59.148 kg Intake & Output: Intake & Output 01/05/22 01/06/22 01/06/22 21:59 05:59 13:59 Intake Total 3178 3233 113 Output Total 1130 430 215 Balance 2048 2803 -102 Weight 59.148 kg Intake: IV 2178 3233 113 Dextrose 5%-1/2Ns W/20Meq KCl 1 1992 ,000 ml @ 250 mls/hr IV .Q4H [facility] Rx#:[id number] HumuLIN R 50 UNIT In Sodium 101 99 63 Chloride 0.9% 99.5 ml @ Per Protocol IV Q12H [facility] Rx#: [id number] Lactated Ringers 1,000 ml @ 1000 Wide Open IV BOLUS ONE Rx#: [id number] Zosyn 3.375 gm In Dextrose 5% 50 50 50 in Water 50 ml @ 100 mls/hr IV Q6H [facility] Rx#:[id number] Potassium Chloride 20 Meq In 629 Sodium Chloride 0.45% 1,000 ml @ 250 mls/hr IV Q4H [facility] Rx#: [id number] Potassium Chloride 80 Meq In 48 992 Sodium Chloride 0.9% 1,000 ml @ 130 mls/hr IV ONCE ONE Rx#: [id number] Vancomycin 500 mg In Sodium 100 Chloride 0.9% 100 ml @ 100 mls/ hr IV ONCE@2200 [facility] Rx#: [id number] Vancomycin 1,000 mg In Sodium 250 Chloride 0.9% 250 ml @ 250 mls/ hr IV ONCE ONE Rx#:[id number] Oral 0 IV - Manual Only 1000 Output: Urine Catheter Amount 235 430 215 Void Amount 875 Estimated Blood Loss 20 Other: Urine Appearance Clear Clear Cloudy Uretheral (Still) Clear Urine Color Pale Pale Bright Yellow Uretheral (Still) Bright Yellow General appearance: average body habitus, cooperative and no acute distress Head Head exam: Present atraumatic and normal inspection Eye Eye exam: Present normal appearance ENT ENT exam: Present mucous membranes moist, normal exam and normal external ear exam Neck Neck exam: Present normal inspection Respiratory Respiratory exam: Present normal respiratory exam Cardiovascular Cardiovascular exam: Present normal rate and rhythm GI/Abdominal GI/Abdominal exam: Present normal bowel sounds External exam: Present lesions Additional comments: left groin packed with gauze. Mild tenderness and surrounding erythema Still catheter in place Back Exam Back exam: Present normal inspection Neurological Exam Neurological exam: Present alert and oriented X3 Skin Skin exam: Present intact and warm OBJ DATA Labs CBC & Chem 7: 01/06/22 04:07 01/06/22 04:07 Labs: Abnormal Lab Results 01/06/22 01/06/22 01/06/22 04:07 04:07 04:07 WBC 35.2 H* MCV 79.5 L Neut % (Auto) 91.2 H Lymph % (Auto) 3.0 L Lymph # (Auto) 1.05 L [place] # (Auto) 1.90 H Absolute Neutrophils 32.09 H ABG Methemoglobin 0.1 L VBG pH 7.30 L VBG pCO2 30.9 L VBG pO2 46.7 H VBG HCO3 14.9 L VBG Total CO2 15.8 L VBG O2 Saturation 79.8 H VBG Base Excess -10 L Carboxyhemoglobin 3.6 H Sodium POC Potassium Potassium POC Chloride Chloride 112 H Carbon Dioxide 13 L POC Total CO2 Anion Gap POC BUN BUN Creatinine 0.5 L POC Creatinine Glucose 167 H POC Glucose Hemoglobin A1c Uric Acid Calcium 8.3 L POC WB Ioniz Calcium Phosphorus 0.4 L GGT Alkaline Phosphatase 142 H Lactate Dehydrogenase Albumin 2.5 L Albumin/Globulin Ratio 0.7 L Triglycerides Beta-Hydroxybutyrate Procalcitonin Urine Glucose (UA) Urine Ketones Urine Occult Blood Urine Mucus 01/06/22 01/05/22 01/05/22 04:07 23:52 23:51 WBC MCV Neut % (Auto) Lymph % (Auto) Lymph # (Auto) [place] # (Auto) Absolute Neutrophils ABG Methemoglobin 0 L VBG pH VBG pCO2 23.8 L VBG pO2 87.1 H VBG HCO3 12.4 L VBG Total CO2 13.1 L VBG O2 Saturation 94.5 H VBG Base Excess -12 L Carboxyhemoglobin 2.6 H Sodium POC Potassium Potassium POC Chloride Chloride 111 H 112 H Carbon Dioxide 13 L 11 L POC Total CO2 Anion Gap POC BUN BUN Creatinine POC Creatinine Glucose POC Glucose Hemoglobin A1c Uric Acid Calcium POC WB Ioniz Calcium Phosphorus GGT Alkaline Phosphatase Lactate Dehydrogenase Albumin Albumin/Globulin Ratio Triglycerides Beta-Hydroxybutyrate Procalcitonin Urine Glucose (UA) Urine Ketones Urine Occult Blood Urine Mucus 01/05/22 01/05/22 01/05/22 20:05 16:06 12:45 WBC MCV Neut % (Auto) Lymph % (Auto) Lymph # (Auto) [place] # (Auto) Absolute Neutrophils ABG Methemoglobin 0 L 0.1 L VBG pH 7.31 L 7.18 L* VBG pCO2 27.6 L 37.9 L VBG pO2 67.9 H 55.4 H VBG HCO3 13.7 L 13.9 L VBG Total CO2 14.6 L 15.1 L VBG O2 Saturation 88.4 H 80.4 H VBG Base Excess -11 L -14 L Carboxyhemoglobin 5.5 H 5.3 H Sodium POC Potassium Potassium POC Chloride 110 H Chloride Carbon Dioxide POC Total CO2 10 L Anion Gap POC BUN 41 H BUN Creatinine POC Creatinine 0.4 L Glucose POC Glucose 542 H* Hemoglobin A1c Uric Acid Calcium POC WB Ioniz Calcium 1.15 L Phosphorus GGT Alkaline Phosphatase Lactate Dehydrogenase Albumin Albumin/Globulin Ratio Triglycerides Beta-Hydroxybutyrate Procalcitonin Urine Glucose (UA) Urine Ketones Urine Occult Blood Urine Mucus 01/05/22 01/05/22 01/05/22 11:48 10:27 10:27 WBC 30.2 H* MCV Neut % (Auto) 88.1 H Lymph % (Auto) 3.1 L Lymph # (Auto) 0.95 L [place] # (Auto) 2.41 H Absolute Neutrophils 26.55 H ABG Methemoglobin VBG pH VBG pCO2 VBG pO2 VBG HCO3 VBG Total CO2 VBG O2 Saturation VBG Base Excess Carboxyhemoglobin Sodium POC Potassium Potassium POC Chloride Chloride Carbon Dioxide POC Total CO2 Anion Gap POC BUN BUN Creatinine POC Creatinine Glucose POC Glucose Hemoglobin A1c Uric Acid Calcium POC WB Ioniz Calcium Phosphorus GGT Alkaline Phosphatase 180 H Lactate Dehydrogenase Albumin 3.0 L Albumin/Globulin Ratio Triglycerides Beta-Hydroxybutyrate Procalcitonin Urine Glucose (UA) 500 mg/dl A Urine Ketones >=160 mg/dl A Urine Occult Blood Moderate A Urine Mucus Few A 01/05/22 01/05/22 01/05/22 10:26 10:26 10:26 WBC MCV Neut % (Auto) Lymph % (Auto) Lymph # (Auto) [place] # (Auto) Absolute Neutrophils ABG Methemoglobin VBG pH VBG pCO2 VBG pO2 VBG HCO3 VBG Total CO2 VBG O2 Saturation VBG Base Excess Carboxyhemoglobin Sodium 130 L 131 L POC Potassium Potassium 2.8 L* 2.9 L* POC Chloride Chloride 92 L 94 L Carbon Dioxide 9 L* 11 L POC Total CO2 Anion Gap 29.0 H 26.0 H POC BUN BUN 35 H Creatinine POC Creatinine Glucose 702 H* POC Glucose Hemoglobin A1c 10.4 H Uric Acid 9.6 H Calcium POC WB Ioniz Calcium Phosphorus GGT 48 H Alkaline Phosphatase 182 H Lactate Dehydrogenase 238 H Albumin 3.0 L Albumin/Globulin Ratio Triglycerides 223 H Beta-Hydroxybutyrate Procalcitonin 0.92 H Urine Glucose (UA) Urine Ketones Urine Occult Blood Urine Mucus 01/05/22 01/05/22 10:26 10:26 WBC MCV Neut % (Auto) Lymph % (Auto) Lymph # (Auto) [place] # (Auto) Absolute Neutrophils ABG Methemoglobin VBG pH VBG pCO2 VBG pO2 VBG HCO3 VBG Total CO2 VBG O2 Saturation VBG Base Excess Carboxyhemoglobin Sodium POC Potassium 2.7 L* Potassium POC Chloride Chloride Carbon Dioxide POC Total CO2 12 L Anion Gap POC BUN 38 H BUN Creatinine POC Creatinine 0.5 L Glucose POC Glucose 685 H* Hemoglobin A1c Uric Acid Calcium POC WB Ioniz Calcium Phosphorus GGT Alkaline Phosphatase Lactate Dehydrogenase Albumin Albumin/Globulin Ratio Triglycerides Beta-Hydroxybutyrate 6.07 H Procalcitonin Urine Glucose (UA) Urine Ketones Urine Occult Blood Urine Mucus Meds: Medications Acetaminophen (Acetaminophen 325 Mg Tablet) 650 mg PO Q4-6HP PRN; Protocol PRN Reason: Per Pain Protocol/Fever > 101 Albuterol/Ipratropium (Ipratropium/Albuterol 3 Ml Ampul.Neb) 3 ml NEB Q4HRT PRN PRN Reason: Wheezing Dextrose (Dextrose 50% 50 Ml Vial) 0 ml IV UD PRN PRN Reason: Hypoglycemia Diagnostic Test (Pha) (Accu-Chek 1 Each Strip) 1 each FS Q1 [facility] Last Admin: 01/06/22 07:03 Dose: 1 each Documented by: Diagnostic Test (Pha) (Accu-Chek 1 Each Strip) 1 each FS ACHS [facility] Docusate Sodium (Docusate Sodium 100 Mg Capsule) 100 mg PO BID [facility] Last Admin: 01/05/22 21:09 Dose: Not Given Documented by: Glucose (Dextrose 31 Gm Oral.Susp) 15 gm PO PRN PRN PRN Reason: Hypoglycemia Hydralazine HCl (Hydralazine 20 Mg/Ml Vial) 10 mg IV Q4-6HP PRN PRN Reason: Hypertension Last Admin: 01/06/22 05:54 Dose: 10 mg Documented by: Hydromorphone HCl (Hydromorphone 0.5 Mg/0.5 Ml Syringe) 0.5 mg IV Q2HP PRN; Protocol PRN Reason: Per Pain Protocol Last Admin: 01/06/22 02:26 Dose: 0.5 mg Documented by: Insulin Human Regular 50 unit/ (Sodium Chloride) 100 mls @ 0 mls/hr IV Q12H [facility]; Protocol Last Titration: 01/06/22 07:04 Dose: 6 unit/hr, 12 mls/hr Documented by: Piperacillin Sod/Tazobactam (Sod 3.375 gm/ Dextrose) 50 mls @ 100 mls/hr IV Q6H [facility]; Protocol Last Infusion: 01/06/22 07:07 Dose: Infused Documented by: Potassium Chloride/Dextrose/Sod Cl (Dextrose 5%-1/2ns W/20meq Kcl) 1,000 mls @ 250 mls/hr IV .Q4H [facility] Last Admin: 01/06/22 03:47 Dose: 250 mls/hr Documented by: Vancomycin HCl 1,000 mg/ (Sodium Chloride) 250 mls @ 250 mls/hr IV Q12H [facility] Potassium Chloride 20 meq/ (Sodium Chloride) 1,010 mls @ 250 mls/hr IV Q4H [facility] Last Admin: 01/06/22 04:17 Dose: Not Given Documented by: Potassium Phosphate 40 meq/ (Dextrose) 509.0909 mls @ 127.273 mls/hr IV ONCE ONE Stop: 01/06/22 11:06 Insulin Glargine (Insulin Glargine, Human 1 Unit/0.01 Ml) 20 unit SQ DAILY [facility] Insulin Human Lispro (Insulin Lispro 1 Unit/0.01 Ml Unit) 0 unit SQ ACHS [facility]; Protocol Lisinopril (Lisinopril 10 Mg Tablet) 10 mg PO DAILY [facility] Ondansetron HCl (Ondansetron 4 Mg/2 Ml Vial) 4 mg IV Q4-6HP PRN; Protocol PRN Reason: Nausea And Vomiting Last Admin: 01/06/22 06:37 Dose: 4 mg Documented by: Oxycodone/Acetaminophen (Oxycodone/Apap 10/325mg Tablet) 1 tab PO Q4-6HP PRN; Protocol PRN Reason: Per Pain Protocol Senna (Sennosides 8.8 Mg/5 Ml Ml) 8.8 mg PT DAILY PRN PRN Reason: Constipation Sodium Chloride (0.9 % Sodium Chloride 10 Ml Syringe) 10 ml IV Q8 [facility] Last Admin: 01/06/22 04:17 Dose: 10 ml Documented by: Vancomycin HCl (Vancomycin Per Pharmacy) 1 order IV UD [facility]; Protocol ABG Interpretation ABG results: 01/05/22 01/05/22 01/05/22 16:06 20:05 23:51 ABG Methemoglobin 0.1 L 0 L 0 L VBG pH 7.18 L* 7.31 L 7.33 VBG pCO2 37.9 L 27.6 L 23.8 L VBG pO2 55.4 H 67.9 H 87.1 H VBG HCO3 13.9 L 13.7 L 12.4 L VBG Total CO2 15.1 L 14.6 L 13.1 L VBG O2 Saturation 80.4 H 88.4 H 94.5 H VBG Base Excess -14 L -11 L -12 L 01/06/22 04:07 ABG Methemoglobin 0.1 L VBG pH 7.30 L VBG pCO2 30.9 L VBG pO2 46.7 H VBG HCO3 14.9 L VBG Total CO2 15.8 L VBG O2 Saturation 79.8 H VBG Base Excess -10 L A/P Assessment and plan (1) Diabetic keto-acidosis: Status: Acute (2) 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 DKA: Inpatient ICU telemetry Transition to SQ insulin with 2 hour insulin drip bridging Lantus 20 unit now and daily High dose SSI AC HS Accu Chek AC HS Hypoglycemia protocol Diabetic diet Saline lock when insulin drip is discontinued perioperative educator 2. Fourier's Gangrene: s/p surgical debridement by Dr. Delaney 01/05 Procalcitonin Lactic acid Blood culture no growth to date Wound culture (initial and intra-operative) no growth to date cbc w/ auto diff in the morning to trend WBC Vancomycin with MRSA screening Zosyn Tylenol PRN fever Percocet PRN moderate pain Dilaudid IV PRN severe pain 3. Hypokalemia: RESOLVED Replace as needed CMP daily Also check serum Mg and replace as needed 4. Essential HTN: Lisinopril Hydralazine 10mg IV q4-6hr PRN SBP>=180mmHg and/or DBP>=110mmHg GI ppx: not currently indicated DVT ppx: SCDs Code status: DNI DNR Prognosis: extremely guarded Disposition: inpatient ICU Critical Care Time: 1hr Time Spent With Patient Time: Total time spent is greater than 50% in coordination of care (as documented) at patient's floor/unit and/or counseling patient: Total time spent with greater than 50% in coordination of care (as documented) at patient's floor/unit and/or counseling patient:: Greater than 35 minutes QUALITY VTE Deep Vein Thrombosis/Pulmonary Embolism Present on Admission: No
[2022-01-06] MEDS: INSULIN GLARGINE, HUMAN 1 UNIT/0.01 ML SQ SCH (07:44)
[2022-01-06] MEDS ORDERED: POTASSIUM PHOSPHATE 40 MEQ in DEXTROSE 5% IN WATER 500 ML IV ONE (08:00)
[2022-01-06] MEDS: VANCOMYCIN 1,000 MG in 0.9 % SODIUM CHLORIDE 250 ML IV SCH ×2 (08:28→21:14)
[2022-01-06] MEDS ORDERED: METOCLOPRAMIDE 10 MG/2 ML VIAL IV PRN (08:46)
[2022-01-06] MEDS ORDERED: LISINOPRIL 10 MG TABLET PO SCH (09:00)
[2022-01-06] MEDS: ACETAMINOPHEN 650 MG/65 ML BAG IV PRN ×2 (09:07→18:08)
--- NOTE | 2022-01-06 10:21 | General Surgery Progress Note ---
SUBJECTIVE Subjective Patient information: Note initiated : 01/06/22 at 10:13 am Service Date, if different from initiated Date: [] Patient: Amber Navarro 66 y/o F admitted on 01/05/22 for Nausea/Vomiting, Elevated Blood Glucose. Chief Complaint: [POD #1 Debridement [place] Gangrene] Post debridement yesterday afternoon, vitals including hemodynamics have been good as has urinary output, continues to have some pain but states she feels improved in that area. Now off of the insulin gtt. Constitutional Vitals: Vital Signs Temp Pulse Resp BP Pulse Ox 97.9 F 98 H 18 173/79 97 01/06/22 08:01 01/06/22 09:01 01/06/22 09:01 01/06/22 09:01 01/06/22 09:01 Period Temp Pulse Resp BP Sys/[place] Pulse Ox Last 24 Hr 97.2 F-97.9 F 81-114 10-24 127-199/55-154 94-100 Intake and Output 01/05/22 01/06/22 01/06/22 21:59 05:59 13:59 Intake Total 3178 3233 1458 Output Total 1130 430 395 Balance 2048 2803 1063 Weight 130 lb 6.4 oz Intake & Output: Intake & Output 01/05/22 01/06/22 01/06/22 21:59 05:59 13:59 Intake Total 3178 3233 1458 Output Total 1130 430 395 Balance 2048 2803 1063 Weight 130 lb 6.4 oz Intake: IV 2178 3233 1458 Dextrose 5%-1/2Ns W/20Meq KCl 1991 1000 ,000 ml @ 250 mls/hr IV .Q4H [facility] Rx#:[id number] HumuLIN R 50 UNIT In Sodium 101 99 93 Chloride 0.9% 99.5 ml @ Per Protocol IV Q12H [facility] Rx#: [id number] Lactated Ringers 1,000 ml @ 1000 Wide Open IV BOLUS ONE Rx#: [id number] Zosyn 3.375 gm In Dextrose 5% 50 50 50 in Water 50 ml @ 100 mls/hr IV Q6H [facility] Rx#:[id number] Potassium Chloride 20 Meq In 629 Sodium Chloride 0.45% 1,000 ml @ 250 mls/hr IV Q4H [facility] Rx#: [id number] Potassium Chloride 80 Meq In 48 992 Sodium Chloride 0.9% 1,000 ml @ 130 mls/hr IV ONCE ONE Rx#: [id number] Vancomycin 500 mg In Sodium 100 Chloride 0.9% 100 ml @ 100 mls/ hr IV ONCE@2200 ONE Rx#: [id number] Vancomycin 1,000 mg In Sodium 250 250 Chloride 0.9% 250 ml @ 250 mls/ hr IV Q12H [facility] Rx#:[id number] Oral 0 IV - Manual Only 1000 Output: Urine Catheter Amount 235 430 395 Void Amount 875 Estimated Blood Loss 20 Other: Urine Appearance Clear Clear Clear Uretheral (Still) Clear Clear Urine Color Pale Pale Pale Uretheral (Still) Bright Yellow Bright Yellow Exam: conversant, continues to have some agitation Additional comments: with nursing assistance, the wound area is checked, prior packing removed. Tissues look healthy and viable, no additional necrosis is evident, there is no odor or foul drainage The wound is repacked and dressed A/P Narrative A/P Narrative: Stacy's Gangrene with DKA post debridement yesterday I don't see any clear indications for a return to the OR at this time but the persistently elevated WBC is worrisome Will add high dose Clindamycin today and re assess in AM Re examine wound tomorrow and return to the OR if any evidence of worsening or deterioration Add CRP to daily labs Time Spent With Patient Time: Total time spent is greater than 50% in coordination of care (as documented) at patient's floor/unit and/or counseling patient:
[2022-01-06] MEDS: CLINDAMYCIN 600 MG in DEXTROSE 5% IN WATER 50 ML IV SCH ×3 (11:45→23:58)
[2022-01-06] MEDS: INSULIN LISPRO 1 UNIT/0.01 ML UNIT SQ SCH ×3 (11:52→21:47)
--- NOTE | 2022-01-06 13:17 | Internal Med Progress Note ---
SUBJECTIVE Subjective Patient information: Note initiated : 01/06/22 at 1:11 pm Service Date, if different from initiated Date: [] Patient: Amber Navarro a 66 y/o F admitted on 01/05/22 for Nausea/Vomiting, Elevated Blood Glucose. Chief Complaint: [] Interval history: Ms. Navarro is a 66 year old female with no known past medical history, presentin g with general body weakness and left groin pain for 2 weeks.The patient did not recall any trauma or injury to her groin but she does shave herself. There was no prior similar episode. About 2 weeks ago she started to notice pain and swelling of her left groin around her labia majora, and it burst open spontaneously about 4 days ago. It is associated with severe aching constant pain of her entire left groin with radiation to the surrounding body regions. She is also complaining of general body weakness, decreased appetite, fever and chills. She presented to our ED due to worsening of her symptoms. Labs significant for severe leukocytosis with WBC 30.2. Initial serum potassium level 2.7, initial POC glucose 685. BUN and creatinine 38 and 0.5, respectively suggesting degree of dehydration as well. Serum bicarb of 12 and anion gap of 17. Beta hydroxybutyrate also elevated. Serum lactic acid 1.7. Pelvic CT showing 10 cm region of extensive gas and phlegmonous inflammation in the subcutaneous fat of the left lower anterior pelvic wall with extension into the left lateral perivalvular regions. Findings suggestive of Stacy's gangrene. 01/06: s/p wound debridement by Dr. Delaney yesterday. Blood and wound cultures no growth to date. afebrile overnight. Continue Vancomycin and Zosyn. Anion gas has been closed this morning with blood glucose 149-->will transition from insulin drip to SQ insulin therapy. Patient is c/o mild left groin pain, denies any fever or chills or sweating. 01/07 WBC trending up but afebrile and stable. Procalcitonin trending down. Blood pressure high today, patient able to take oral meds so increased Lisinopril to 10 mg daily. Replaced potassium and phosphorus. Increased Lantus to 30 units HS and added Humalog [address] chest/abdomen/pelvis with contrast to evaluate for other infectious process causing increase in WBC. Physical exam Head: Atraumatic, normal inspection. Eyes: normal appearance, no scleral icterus. Neck: full ROM Respiratory: no respiratory distress. Cardiovascular: normal rate and rhythm, S1, S2. GI/Abdominal: soft, nontender, no guarding. Extremities: full range of motion, nontender. Neurological: CN II-XII intact, intact motor, intact sensation. Psychiatric: normal mood. Skin: warm, normal color Constitutional Vitals: Vital Signs Temp Pulse Resp BP Pulse Ox 97.7 F 110 H 24 H 114/51 99 01/06/22 12:01 01/06/22 12:01 01/06/22 12:01 01/06/22 12:01 01/06/22 12:01 Period Temp Pulse Resp BP Sys/Sherwood Pulse Ox Last 24 Hr 97.2 F-97.9 F 81-114 10-24 114-199/51-154 94-100 Intake and Output 01/05/22 01/06/22 01/06/22 21:59 05:59 13:59 Intake Total 3178 3233 2071.0909 Output Total 1130 430 695 Balance 2048 2803 1376.0909 Weight 59.148 kg Intake & Output: Intake & Output 01/05/22 01/06/22 01/06/22 21:59 05:59 13:59 Intake Total 3178 3233 2071.0909 Output Total 1130 430 695 Balance 2048 2803 1376.0909 Weight 59.148 kg Intake: IV 2178 3233 2071.0909 Cleocin 600 mg In Dextrose 5% 54 in Water 50 ml @ 100 mls/hr IV Q6H [facility] Rx#:[id number] Dextrose 5%-1/2Ns W/20Meq KCl 1 1992 1000 ,000 ml @ 250 mls/hr IV .Q4H [facility] Rx#:[id number] HumuLIN R 50 UNIT In Sodium 101 99 93 Chloride 0.9% 99.5 ml @ Per Protocol IV Q12H [facility] Rx#: [id number] Lactated Ringers 1,000 ml @ 1000 Wide Open IV BOLUS ONE Rx#: [id number] Zosyn 3.375 gm In Dextrose 5% 50 50 100 in Water 50 ml @ 100 mls/hr IV Q6H [facility] Rx#:[id number] Potassium Chloride 20 Meq In 629 Sodium Chloride 0.45% 1,000 ml @ 250 mls/hr IV Q4H [facility] Rx#: [id number] Potassium Chloride 80 Meq In 48 992 Sodium Chloride 0.9% 1,000 ml @ 130 mls/hr IV ONCE ONE Rx#: [id number] Potassium Chloride 80 Meq In 0 Dextrose 5% in Water 1,000 ml @ 130 mls/hr IV ONCE ONE Rx#: [id number] Potassium Phosphate 40 Meq In 509.0909 Dextrose 5% in Water 500 ml @ 127.273 mls/hr IV ONCE ONE Rx#: [id number] Vancomycin 500 mg In Sodium 100 Chloride 0.9% 100 ml @ 100 mls/ hr IV ONCE@2200 ONE Rx#: [id number] Vancomycin 1,000 mg In Sodium 250 250 Chloride 0.9% 250 ml @ 250 mls/ hr IV Q12H [facility] Rx#:[id number] Oral 0 IV - Manual Only 1000 Output: Urine Catheter Amount 235 430 695 Void Amount 875 Estimated Blood Loss 20 Other: Urine Appearance Clear Clear Clear Sediment Uretheral (Still) Clear Clear Urine Color Pale Pale Pale Uretheral (Still) Bright Yellow Bright Yellow Urine Odor Normal OBJ DATA Labs CBC & Chem 7: 01/07/22 05:29 01/07/22 05:29 Labs: Abnormal Lab Results 01/06/22 01/06/22 01/06/22 04:07 04:07 04:07 WBC 35.2 H* MCV 79.5 L Neut % (Auto) 91.2 H Lymph % (Auto) 3.0 L Lymph # (Auto) 1.05 L Dale # (Auto) 1.90 H Absolute Neutrophils 32.09 H ABG Methemoglobin 0.1 L VBG pH 7.30 L VBG pCO2 30.9 L VBG pO2 46.7 H VBG HCO3 14.9 L VBG Total CO2 15.8 L VBG O2 Saturation 79.8 H VBG Base Excess -10 L Carboxyhemoglobin 3.6 H Sodium POC Potassium Potassium POC Chloride Chloride 112 H Carbon Dioxide 13 L POC Total CO2 Anion Gap POC BUN BUN Creatinine 0.5 L POC Creatinine Glucose 167 H POC Glucose Hemoglobin A1c Uric Acid Calcium 8.3 L POC WB Ioniz Calcium Phosphorus 0.4 L GGT Alkaline Phosphatase 142 H Lactate Dehydrogenase Albumin 2.5 L Albumin/Globulin Ratio 0.7 L Triglycerides Beta-Hydroxybutyrate Procalcitonin Urine Glucose (UA) Urine Ketones Urine Occult Blood Urine Mucus 01/06/22 01/05/22 01/05/22 04:07 23:52 23:51 WBC MCV Neut % (Auto) Lymph % (Auto) Lymph # (Auto) Dale # (Auto) Absolute Neutrophils ABG Methemoglobin 0 L VBG pH VBG pCO2 23.8 L VBG pO2 87.1 H VBG HCO3 12.4 L VBG Total CO2 13.1 L VBG O2 Saturation 94.5 H VBG Base Excess -12 L Carboxyhemoglobin 2.6 H Sodium POC Potassium Potassium POC Chloride Chloride 111 H 112 H Carbon Dioxide 13 L 11 L POC Total CO2 Anion Gap POC BUN BUN Creatinine POC Creatinine Glucose POC Glucose Hemoglobin A1c Uric Acid Calcium POC WB Ioniz Calcium Phosphorus GGT Alkaline Phosphatase Lactate Dehydrogenase Albumin Albumin/Globulin Ratio Triglycerides Beta-Hydroxybutyrate Procalcitonin Urine Glucose (UA) Urine Ketones Urine Occult Blood Urine Mucus 01/05/22 01/05/22 01/05/22 20:05 16:06 12:45 WBC MCV Neut % (Auto) Lymph % (Auto) Lymph # (Auto) Dale # (Auto) Absolute Neutrophils ABG Methemoglobin 0 L 0.1 L VBG pH 7.31 L 7.18 L* VBG pCO2 27.6 L 37.9 L VBG pO2 67.9 H 55.4 H VBG HCO3 13.7 L 13.9 L VBG Total CO2 14.6 L 15.1 L VBG O2 Saturation 88.4 H 80.4 H VBG Base Excess -11 L -14 L Carboxyhemoglobin 5.5 H 5.3 H Sodium POC Potassium Potassium POC Chloride 110 H Chloride Carbon Dioxide POC Total CO2 10 L Anion Gap POC BUN 41 H BUN Creatinine POC Creatinine 0.4 L Glucose POC Glucose 542 H* Hemoglobin A1c Uric Acid Calcium POC WB Ioniz Calcium 1.15 L Phosphorus GGT Alkaline Phosphatase Lactate Dehydrogenase Albumin Albumin/Globulin Ratio Triglycerides Beta-Hydroxybutyrate Procalcitonin Urine Glucose (UA) Urine Ketones Urine Occult Blood Urine Mucus 01/05/22 01/05/22 01/05/22 11:48 10:27 10:27 WBC 30.2 H* MCV Neut % (Auto) 88.1 H Lymph % (Auto) 3.1 L Lymph # (Auto) 0.95 L Dale # (Auto) 2.41 H Absolute Neutrophils 26.55 H ABG Methemoglobin VBG pH VBG pCO2 VBG pO2 VBG HCO3 VBG Total CO2 VBG O2 Saturation VBG Base Excess Carboxyhemoglobin Sodium POC Potassium Potassium POC Chloride Chloride Carbon Dioxide POC Total CO2 Anion Gap POC BUN BUN Creatinine POC Creatinine Glucose POC Glucose Hemoglobin A1c Uric Acid Calcium POC WB Ioniz Calcium Phosphorus GGT Alkaline Phosphatase 180 H Lactate Dehydrogenase Albumin 3.0 L Albumin/Globulin Ratio Triglycerides Beta-Hydroxybutyrate Procalcitonin Urine Glucose (UA) 500 mg/dl A Urine Ketones >=160 mg/dl A Urine Occult Blood Moderate A Urine Mucus Few A 01/05/22 01/05/22 01/05/22 10:26 10:26 10:26 WBC MCV Neut % (Auto) Lymph % (Auto) Lymph # (Auto) Dale # (Auto) Absolute Neutrophils ABG Methemoglobin VBG pH VBG pCO2 VBG pO2 VBG HCO3 VBG Total CO2 VBG O2 Saturation VBG Base Excess Carboxyhemoglobin Sodium 130 L 131 L POC Potassium Potassium 2.8 L* 2.9 L* POC Chloride Chloride 92 L 94 L Carbon Dioxide 9 L* 11 L POC Total CO2 Anion Gap 29.0 H 26.0 H POC BUN BUN 35 H Creatinine POC Creatinine Glucose 702 H* POC Glucose Hemoglobin A1c 10.4 H Uric Acid 9.6 H Calcium POC WB Ioniz Calcium Phosphorus GGT 48 H Alkaline Phosphatase 182 H Lactate Dehydrogenase 238 H Albumin 3.0 L Albumin/Globulin Ratio Triglycerides 223 H Beta-Hydroxybutyrate Procalcitonin 0.92 H Urine Glucose (UA) Urine Ketones Urine Occult Blood Urine Mucus 01/05/22 01/05/22 10:26 10:26 WBC MCV Neut % (Auto) Lymph % (Auto) Lymph # (Auto) Dale # (Auto) Absolute Neutrophils ABG Methemoglobin VBG pH VBG pCO2 VBG pO2 VBG HCO3 VBG Total CO2 VBG O2 Saturation VBG Base Excess Carboxyhemoglobin Sodium POC Potassium 2.7 L* Potassium POC Chloride Chloride Carbon Dioxide POC Total CO2 12 L Anion Gap POC BUN 38 H BUN Creatinine POC Creatinine 0.5 L Glucose POC Glucose 685 H* Hemoglobin A1c Uric Acid Calcium POC WB Ioniz Calcium Phosphorus GGT Alkaline Phosphatase Lactate Dehydrogenase Albumin Albumin/Globulin Ratio Triglycerides Beta-Hydroxybutyrate 6.07 H Procalcitonin Urine Glucose (UA) Urine Ketones Urine Occult Blood Urine Mucus Meds: Medications Acetaminophen (Acetaminophen 325 Mg Tablet) 650 mg PO Q4-6HP PRN; Protocol PRN Reason: Per Pain Protocol/Fever > 101 Albuterol/Ipratropium (Ipratropium/Albuterol 3 Ml Ampul.Neb) 3 ml NEB Q4HRT PRN PRN Reason: Wheezing Dextrose (Dextrose 50% 50 Ml Vial) 0 ml IV UD PRN PRN Reason: Hypoglycemia Diagnostic Test (Pha) (Accu-Chek 1 Each Strip) 1 each FS ACHS [facility] Last Admin: 01/06/22 11:40 Dose: 1 each Documented by: Docusate Sodium (Docusate Sodium 100 Mg Capsule) 100 mg PO BID [facility] Last Admin: 01/05/22 21:09 Dose: Not Given Documented by: Glucose (Dextrose 31 Gm Oral.Susp) 15 gm PO PRN PRN PRN Reason: Hypoglycemia Hydralazine HCl (Hydralazine 20 Mg/Ml Vial) 10 mg IV Q4-6HP PRN PRN Reason: Hypertension Last Admin: 01/06/22 05:54 Dose: 10 mg Documented by: Hydromorphone HCl (Hydromorphone 0.5 Mg/0.5 Ml Syringe) 0.5 mg IV Q2HP PRN; Protocol PRN Reason: Per Pain Protocol Last Admin: 01/06/22 02:26 Dose: 0.5 mg Documented by: Piperacillin Sod/Tazobactam (Sod 3.375 gm/ Dextrose) 50 mls @ 100 mls/hr IV Q6H [facility]; Protocol Last Infusion: 01/06/22 12:54 Dose: Infused Documented by: Vancomycin HCl 1,000 mg/ (Sodium Chloride) 250 mls @ 250 mls/hr IV Q12H [facility] Last Infusion: 01/06/22 09:33 Dose: Infused Documented by: Acetaminophen (Ofirmev) 650 mg in 65 mls @ 130 mls/hr IV Q6HP PRN; Protocol PRN Reason: PAIN/FEVER > 101 Last Infusion: 01/06/22 09:44 Dose: Infused Documented by: Clindamycin Phosphate 600 mg/ (Dextrose) 54 mls @ 100 mls/hr IV Q6H [facility]; Protocol Last Infusion: 01/06/22 12:21 Dose: Infused Documented by: Insulin Glargine (Insulin Glargine, Human 1 Unit/0.01 Ml) 20 unit SQ DAILY [facility] Last Admin: 01/06/22 07:44 Dose: 20 units Documented by: Insulin Human Lispro (Insulin Lispro 1 Unit/0.01 Ml Unit) 0 unit SQ [facility]; Protocol Last Admin: 01/06/22 11:52 Dose: 12 units Documented by: Lisinopril (Lisinopril 10 Mg Tablet) 10 mg PO DAILY [facility] Metoclopramide HCl (Metoclopramide 10 Mg/2 Ml Vial) 10 mg IV Q6HP PRN PRN Reason: Nausea And Vomiting Last Admin: 01/06/22 09:05 Dose: 10 mg Documented by: Ondansetron HCl (Ondansetron 4 Mg/2 Ml Vial) 4 mg IV Q4-6HP PRN; Protocol PRN Reason: Nausea And Vomiting Last Admin: 01/06/22 12:46 Dose: 4 mg Documented by: Oxycodone/Acetaminophen (Oxycodone/Apap 10/325mg Tablet) 1 tab PO Q4-6HP PRN; Protocol PRN Reason: Per Pain Protocol Senna (Sennosides 8.8 Mg/5 Ml Ml) 8.8 mg PT DAILY PRN PRN Reason: Constipation Sodium Chloride (0.9 % Sodium Chloride 10 Ml Syringe) 10 ml IV Q8 [facility] Last Admin: 01/06/22 04:17 Dose: 10 ml Documented by: Vancomycin HCl (Vancomycin Per Pharmacy) 1 order IV UD [facility]; Protocol ABG Interpretation ABG results: 01/05/22 01/05/22 01/05/22 16:06 20:05 23:51 ABG Methemoglobin 0.1 L 0 L 0 L VBG pH 7.18 L* 7.31 L 7.33 VBG pCO2 37.9 L 27.6 L 23.8 L VBG pO2 55.4 H 67.9 H 87.1 H VBG HCO3 13.9 L 13.7 L 12.4 L VBG Total CO2 15.1 L 14.6 L 13.1 L VBG O2 Saturation 80.4 H 88.4 H 94.5 H VBG Base Excess -14 L -11 L -12 L 01/06/22 04:07 ABG Methemoglobin 0.1 L VBG pH 7.30 L VBG pCO2 30.9 L VBG pO2 46.7 H VBG HCO3 14.9 L VBG Total CO2 15.8 L VBG O2 Saturation 79.8 H VBG Base Excess -10 L A/P Narrative A/P Narrative: Assessment: 66-year-old female with no known prior medical history admitted for Stacy's Gangrene and diabetic ketoacidosis. The patient has a new diagnosis of diabetes mellitus. 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 -severely elevated neutrophil count noted -differential could include leukemia #Diabetes mellitus #Resolved diabetic ketoacidosis #Hypertension Plan -Vancomycin, clindamycin, Zosyn for now. -Follow all cultures, target antibiotic treatment accordingly. -Follow WBC, procalcitonin. -Peripheral blood smear (if available). -CT chest/abdomen/pelvis w contrast -Lantus, Humalog AC and SSIhigh. -Analgesics as needed. -Lisinopril for elevated blood pressure. -General surgery following. -Wound cares. -Diabetic diet. -DVT PPx: Heparin SQ -CODE STATUS: DNR/DNI -Disposition:TBD Time Spent With Patient Time: Total time spent is greater than 50% in coordination of care (as documented) at patient's floor/unit and/or counseling patient: QUALITY VTE Deep Vein Thrombosis/Pulmonary Embolism Present on Admission: No
[2022-01-06] MEDS: DOCUSATE SODIUM 100 MG CAPSULE PO SCH ×2 (14:57→21:49)
[2022-01-06 16:58] LABS: Albumin 2.4 gm/dL (3.2-5.2); Blood Urea Nitrogen 14 mg/dL (8-23); Carbon Dioxide 16 mmol/L (22-30); Chloride 103 mmol/L (96-108); Glomerular Filtration Rate 99; Glucose 190 mg/dL (70-105); Phosphorous 1.2 mg/dL (2.5-4.5)
[2022-01-06] MEDS ORDERED: LABETALOL 5 MG/ML ML IV PRN (17:44)
[2022-01-06] MEDS ORDERED: POTASSIUM PHOSPHATE 20 MEQ in DEXTROSE 5% IN WATER 250 ML IV ONE (19:47)
[2022-01-06] MEDS ORDERED: POTASSIUM PHOSPHATE 66 MEQ/15 ML VIAL IV ONE (21:40)
[2022-01-07] MEDS: PIPERACILLIN SODIUM/TAZOBACTAM 3.375 GM in DEXTROSE 5% IN WATER 50 ML IV SCH ×4 (00:01→17:51)
[2022-01-07] MEDS: oxyCODONE/APAP 10/325MG TABLET PO PRN ×2 (00:01→16:23)
--- NOTE | 2022-01-07 04:40 | XRay Report ---
CLINICAL INFORMATION: abdominal pain COMPARISON: None. FINDINGS: The stool gas pattern is unremarkable. There is no free air, soft tissue mass, organomegaly or pathologic calcification. IMPRESSION: Normal abdomen Interpreted and Authenticated by: Neeraj Calloway 01/07/22
[2022-01-07] MEDS: CLINDAMYCIN 600 MG in DEXTROSE 5% IN WATER 50 ML IV SCH ×3 (06:00→18:32)
[2022-01-07] MEDS: 0.9 % SODIUM CHLORIDE 10 ML SYRINGE IV SCH ×3 (06:00→21:34)
[2022-01-07 07:17] LABS: Basophils # (Auto) 0.11 K/mcL (0.00-0.30); Basophils % (Auto) 0.3 % (0.0-2.0); Eosinophils # (Auto) 0 K/mcL (0.00-0.70); Eosinophils % (Auto) 0 % (0.0-7.0); Hematocrit 37.6 % (34.1-44.9); Hemoglobin 13.1 g/dL (11.2-15.7); Lymphocytes # (Auto) 1.84 K/mcL (1.50-4.80); Lymphocytes % (Auto) 5.1 % (15.5-49.0); Mean Cell Volume 78.8 fL (80.0-100.0); Mean Corpuscular HGB Conc 34.8 g/dL (31.0-36.0); Mean Platelet Volume 9.6 fL (7.4-10.4); Monocytes # (Auto) 1.98 K/mcL (0.10-0.90); Monocytes % (Auto) 5.5 % (1.0-12.0); Neutrophils % (Auto) 89.1 % (38.0-78.0); Platelet Count 370 K/mcL (140-440); RBC 4.77 M/mcL (3.59-5.38); Red Cell Distribution Width 12.4 % (11.5-14.5); WBC 36.1 K/mcL (4.5-11.0)
[2022-01-07 07:38] LABS: ALT/SGPT 17 U/L (<40); AST/SGOT 20 U/L (<32); Albumin 2.2 gm/dL (3.2-5.2); Albumin/Globulin Ratio 0.7 (1.0-2.3); Alkaline Phosphatase 135 U/L (39-117); Bilirubin,Direct < 0.2 mg/dL (0-0.3); Bilirubin,Total 0.3 mg/dL (0.1-1.0); Blood Urea Nitrogen 14 mg/dL (8-23); Calcium 7.1 mg/dL (8.6-10.4); Carbon Dioxide 17 mmol/L (22-30); Chloride 104 mmol/L (96-108); Globulin 3.2 gm/dL (2.2-3.7); Glomerular Filtration Rate 107; Glucose 230 mg/dL (70-105); Lactate Dehydrogenase 208 U/L (135-225); Phosphorous 1.9 mg/dL (2.5-4.5); Triglycerides 172 mg/dL (<150); Uric Acid 1.3 mg/dL (2.5-8.0)
[2022-01-07] MEDS: DOCUSATE SODIUM 100 MG CAPSULE PO SCH ×2 (08:39→21:30)
[2022-01-07] MEDS: INSULIN GLARGINE, HUMAN 1 UNIT/0.01 ML SQ SCH (08:40)
[2022-01-07] MEDS: INSULIN LISPRO 1 UNIT/0.01 ML UNIT SQ SCH ×5 (08:40→21:30)
[2022-01-07] MEDS ORDERED: LISINOPRIL 5 MG TABLET PO SCH (09:00)
[2022-01-07] MEDS ORDERED: LISINOPRIL 10 MG TABLET PO SCH (09:00)
[2022-01-07] MEDS ORDERED: POTASSIUM CHLORIDE 20 MEQ TABLET PO ONE (09:19)
[2022-01-07] MEDS: HYDROmorphone 0.5 MG/0.5 ML SYRINGE IV PRN (10:03)
[2022-01-07] MEDS: VANCOMYCIN 1,000 MG in 0.9 % SODIUM CHLORIDE 250 ML IV SCH ×2 (11:11→21:31)
[2022-01-07] MEDS: NEUTRA PHOS 1 PACKET PO SCH ×2 (11:12→21:30)
[2022-01-07] MEDS ORDERED: HEPARIN SODIUM,PORCINE/PF 500 UNIT/5 ML SYRINGE IV ONE (11:19)
--- NOTE | 2022-01-07 11:57 | General Surgery Progress Note ---
SUBJECTIVE Subjective Patient information: Note initiated : 01/07/22 at 11:49 am Service Date, if different from initiated Date: [] Patient: Amber Navarro 66 y/o F admitted on 01/05/22 for Nausea/Vomiting, Elevated Blood Glucose. Chief Complaint: [POD #2 Stacy's Gangrene] Seems to feel better this am, more alert and conversant, less pain Constitutional Vitals: Vital Signs Temp Pulse Resp BP Pulse Ox 97 F 98 H 12 155/66 98 01/07/22 08:01 01/07/22 11:01 01/07/22 11:01 01/07/22 11:01 01/07/22 11:01 Period Temp Pulse Resp BP Sys/Sherwood Pulse Ox Last 24 Hr 97 F-99.9 F 79-114 7-26 149-190/51-101 95-100 Intake and Output 01/06/22 01/07/22 01/07/22 21:59 05:59 13:59 Intake Total 092 065.1761 104 Output Total 476 555 369 Balance -587 494.0282 -265 Weight 134 lb 6.4 oz Intake & Output: Intake & Output 01/06/22 01/07/22 01/07/22 21:59 05:59 13:59 Intake Total 439 987.6366 104 Output Total 476 555 369 Balance -526 814.7699 -265 Weight 134 lb 6.4 oz Intake: IV 297 778.4149 104 Cleocin 600 mg In Dextrose 5% 54 54 54 in Water 50 ml @ 100 mls/hr IV Q6H [facility] Rx#:[id number] HumuLIN R 50 UNIT In Sodium 0 Chloride 0.9% 99.5 ml @ Per Protocol IV Q12H [facility] Rx#: [id number] Zosyn 3.375 gm In Dextrose 5% 50 50 50 in Water 50 ml @ 100 mls/hr IV Q6H [facility] Rx#:[id number] Potassium Phosphate 20 Meq In 254.5455 Dextrose 5% in Water 250 ml @ 127.273 mls/hr IV ONCE ONE Rx#: [id number] Vancomycin 1,000 mg In Sodium 250 Chloride 0.9% 250 ml @ 250 mls/ hr IV Q12H [facility] Rx#:[id number] Output: Urine Catheter Amount 476 383 369 Other: Urine Appearance Clear Clear Cloudy Uretheral (Still) Clear Clear Urine Color Bright Yellow Bright Yellow Bright Yellow Uretheral (Still) Bright Yellow Pale Urine Odor Normal Exam: awake and conversant Additional comments: directed exam with nursing assistance - packing is removed, the wound bed looks clean and there is no evidence of additional tissue necrosis. 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 WBC remains elevated but only minimally increased overnight and clinical appearance is improved. Will hold off any additional debridement at this time and re check WBC in AM Possible VAC placement tomorrow or Saturday Continue broad spectrum ABs (Clinda added yesterday) and check pending cultures Status: Acute Time Spent With Patient Time: Total time spent is greater than 50% in coordination of care (as documented) at patient's floor/unit and/or counseling patient:
[2022-01-07] MEDS ORDERED: ENOXAPARIN 40 MG/0.4 ML SYRINGE SQ SCH (13:20)
[2022-01-07] MEDS ORDERED: CALCIUM CARBONATE 500 MG TAB.CHEW CHEWED PRN (13:29)
[2022-01-07] MEDS ORDERED: IOPAMIDOL 100 ML BOTTLE IV ONE (14:05)
--- NOTE | 2022-01-07 14:32 | Cat Scan Report ---
CLINICAL INFORMATION: Fever and vomiting. Elevated white blood cell count COMPARISON: None. TECHNIQUE: Enteric contrast was utilized. 80 cc of Isovue-370 were injected intravenously, and 50 seconds later, 0.625 mm helical slices were obtained from the lung apices through the subtrochanteric regions of the femurs. Following reconstruction, 2.5 mm sagittal, coronal and axial reformatted images were processed and reviewed at multiple windows and levels. 7 mm MIP reconstructions were obtained through the lungs to optimize nodule detection.The exam was performed using radiation dose optimization techniques including, but not limited to, automated exposure control, adjustment of the mA and/or kV according to patient size and use of iterative reconstruction technique. FINDINGS: Pulmonary parenchymal windows show moderate subsegmental atelectasis in the posterior left lower lobe with minor atelectasis in the posterior right lower lobe and lingula. Small right and tiny left pleural effusions have developed. Mediastinal windows show the heart is normal in size. Extremely heavy calcific fibrofatty plaque noted within the left main and LAD coronary arteries. Occlusive or subocclusive coronary disease is suspected in these regions. There is moderate calcific plaque in the proximal circumflex coronary artery as well. There is no adenopathy in the mediastinal, hilar or axillary regions. The thoracic aorta is normal diameter with diffuse intimal thickening in the descending segment. The pulmonary arteries are normal in diameter well opacified with no evidence of embolus. Moderate diffuse wall thickening of the esophagus with low-attenuation in the mural region suggests diffuse esophagitis or severe diffuse peptic disease. The thyroid is unremarkable. Abdominal images show mild fatty change within the liver, but no focal hepatic lesion. The gallbladder and bile ducts are normal: CBD is 5 mm. The pancreas, both adrenal glands and kidneys are normal in size, configuration and attenuation without focal lesion. Moderate chronic wedge shaped infarct winds through the mid spleen (4 cm maximum dimension) The abdominal aorta demonstrate a 50% stenosis in the infrarenal region to to very heavy fibrofatty and calcific plaque. Pelvic images show Still catheter properly positioned in the urinary bladder. Anteflexed uterus is normal postmenopausal size: 6.1 x 2.9 cm. Both ovaries are unremarkable. There is a small amount of simple free fluid in the deep true pelvis. Stomach is unremarkable. Moderate thickening of the wall and plicae circulares of the duodenum with moderate periduodenal fluid suggesting primary duodenitis. The remaining small bowel, large bowel and appendix region are normal. There is no free air or adenopathy Bone windows show no osseous abnormality throughout the chest, abdomen or pelvis. IMPRESSION: 1. Severe duodenitis. 2. Severe esophagitis or peptic disease. Suggest correlation with upper endoscopy 3. Interval surgical debridement of Stacy's gangrene in the subcutaneous fat of the left anterior lower pelvis wall. In this region, there is a noninflamed appearing 5 cm open wound. 4. Extraordinarily heavy fibrofatty calcific plaque in the left main and LAD coronary arteries. Suspect occlusive or subocclusive coronary artery disease. Strongly suggest cardiology referral for stress testing and possible probable eventual catheterization 5. 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
[2022-01-07] MEDS ORDERED: PANTOPRAZOLE 40 MG VIAL IV ONE (15:16)
[2022-01-07] MEDS: PANTOPRAZOLE 80 MG in 0.9 % SODIUM CHLORIDE 100 ML IV SCH (16:02)
[2022-01-07] MEDS ORDERED: NEUTRA PHOS 1 PACKET PO SCH (21:00)
[2022-01-07] MEDS ORDERED: HEPARIN 5,000 UNIT/ML VIAL SQ SCH (21:00)
[2022-01-08] MEDS: CLINDAMYCIN 600 MG in DEXTROSE 5% IN WATER 50 ML IV SCH ×2 (00:28→05:46)
[2022-01-08] MEDS: PIPERACILLIN SODIUM/TAZOBACTAM 3.375 GM in DEXTROSE 5% IN WATER 50 ML IV SCH ×2 (00:28→06:29)
[2022-01-08] MEDS: PANTOPRAZOLE 80 MG in 0.9 % SODIUM CHLORIDE 100 ML IV SCH ×3 (01:40→23:17)
[2022-01-08] MEDS: 0.9 % SODIUM CHLORIDE 10 ML SYRINGE IV SCH ×3 (05:46→23:17)
[2022-01-08 06:38] LABS: Hematocrit 34.4 % (34.1-44.9); Mean Cell Volume 80.2 fL (80.0-100.0); Mean Corpuscular HGB Conc 34.9 g/dL (31.0-36.0); Mean Platelet Volume 9.5 fL (7.4-10.4); Platelet Count 304 K/mcL (140-440); RBC 4.29 M/mcL (3.59-5.38); WBC 29.2 K/mcL (4.5-11.0)
[2022-01-08] MEDS: INSULIN LISPRO 1 UNIT/0.01 ML UNIT SQ SCH ×7 (07:05→21:19)
[2022-01-08 07:12] LABS: ALT/SGPT 12 U/L (<40); AST/SGOT 10 U/L (<32); Albumin 1.9 gm/dL (3.2-5.2); Albumin/Globulin Ratio 0.7 (1.0-2.3); Alkaline Phosphatase 127 U/L (39-117); Bilirubin,Direct < 0.2 mg/dL (0-0.3); Bilirubin,Total 0.3 mg/dL (0.1-1.0); Blood Urea Nitrogen 11 mg/dL (8-23); Calcium 7.4 mg/dL (8.6-10.4); Carbon Dioxide 20 mmol/L (22-30); Chloride 102 mmol/L (96-108); Globulin 2.9 gm/dL (2.2-3.7); Glomerular Filtration Rate 107; Glucose 163 mg/dL (70-105); Lactate Dehydrogenase 239 U/L (135-225); Phosphorous 1.8 mg/dL (2.5-4.5); Triglycerides 127 mg/dL (<150); Uric Acid 1.4 mg/dL (2.5-8.0)
--- NOTE | 2022-01-08 07:29 | EKG ---
[facility] Test Date: 2022-01-05 Pat Name: Amber Navarro Department: ED Room: Gender: Female Blood Tester: SB : 1955 Requested By: Luis Guzman Order Number: [id number] Reading MD: Joel Angel Measurements Intervals [place] Rate: 107 P: 82 CT: 187 QRS: -60 QRSD: 79 T: 41 QT: 369 QTc: 493 Interpretive Statements Sinus tachycardia Ventricular premature complex Abnormal R-wave progression, late transition Electronically Signed On 01-08-2022 7:29:36 PST by Joel Angel /store/[email or web address]/[id number]
--- NOTE | 2022-01-08 07:40 | EKG ---
[facility] Test Date: 2022-01-06 Pat Name: Amber Navarro Department: ICU Room: 119 Gender: Female Set Off Press Operator: : 1955 Requested By: Levon Garcia Order Number: [id number] Reading MD: Joel Angel Measurements Intervals [place] Rate: 111 P: 61 MN: 135 QRS: -47 QRSD: 89 T: 46 QT: 395 QTc: 537 Interpretive Statements Sinus tachycardia Q waves anteroseptal and inferior leads Electronically Signed On 01-08-2022 7:39:59 PST by Joel Angel /store/[email or web address]/[id number]/[id number]
[2022-01-08 07:46] LABS: Lymphocytes % 8 % (15-49); Monocytes % (Manual) 5 % (1-12); Myelocytes % 1 %; Platelet Estimate NORMAL (Normal); RBC Morphology NORMAL (Normal); Segmented Neutrophils % 86 % (38-78)
[2022-01-08 07:55] LABS: Iron 44 ug/dL (37-145); TIBC Calculation 157 ug/dl (228-428); Transferrin % Saturation 28 % (15-50)
--- NOTE | 2022-01-08 08:40 | Operative Note ---
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 OPERATIVE PROCEDURE: 1. Examination under anesthesia. 2. Widespread excision and debridement, washout with cultures. ANESTHESIA: General. POSITIONING: Lithotomy. SURGEON: Trey Delaney MD PREOPERATIVE MEDICATIONS: 1. Zosyn 3.375 g IV. 2. Vancomycin IV. INDICATIONS: The patient is a 66-year-old female who presented to the Emergency Room earlier today with nausea, vomiting and just overall systemic malaise. She was seen and found to be looking quite ill. She was tachycardic and appeared sick. Workup revealed a blood sugar in the high 700s range, as well as evidence of diabetic ketoacidosis despite no known diagnosis of diabetes. Additionally, she was found to have a draining sore in the left perilabial vulvar region and on examination of that area had evidence of induration. A CT scan was appropriately obtained, which demonstrated evidence of Stacy's gangrene with a subcutaneous and soft tissue air and phlegmon tracking up towards the left suprapubic region as well. White count was 30 and again she appeared quite ill. Based on the findings and after seeing her in consultation we recommended emergency surgery and agreed with the diagnosis of probable Stacy's gangrene. She was given doses of IV antibiotics by the Emergency Room physician that included Zosyn and vancomycin, and a consultation was obtained as well. Ultimately, they will be admitting the patient and caring for her contributory medical issues. After full discussion of risks, benefits, potential complications, and alternative treatment options, all of these issues have been discussed with her and her , we proceeded to the operating room. DESCRIPTION OF PROCEDURE: She was brought into the OR and placed supine on the OR table, placed under general anesthesia and an LMA was applied. She was then placed in high lithotomy. The groin, lower inguinal regions, lower abdominal area and perineal regions were all widely prepped and draped in sterile fashion. She had a punctate opening in the vulva of the left labial region that was draining pus and on Q-tip probe, this was found to track up towards the suprapubic region where she had an obvious area of fluctuance and then medially, inferiorly, and laterally to some extent as well. This entire area was then unroofed utilizing primarily cautery and then I excised a substantial area of necrotic skin and underlying subcutaneous tissue and then encountered roughly 7 x 15 cm area of necrotic debris seemingly to appear to consist predominantly of necrotic subcutaneous adipose tissue. This was all debrided away primarily sharply and irrigated extensively. We used the pulse lavage and then debrided back to healthy tissues in all directions. Care was taken to avoid any injury to the fascia and also to minimize trauma to the left labia. Careful examination vaginally and rectally did not reveal any evidence of fistulous communication or any potential contributing origin from these areas to the infection. After the area appeared to be extensively debrided and I felt that we had satisfactorily cleared all necrotic tissue out and after pulse lavage, we completed the procedure. Of note, two culture swabs were taken of the purulent material and sent to the lab for culture analysis. Moist packing was placed in the wound. A Still catheter was applied as well. The patient was taken out of lithotomy and transferred to the recovery bed. After being awakened and the LMA was removed, she was then transferred to PACU in satisfactory condition. COMPLICATIONS: None apparent. ESTIMATED BLOOD LOSS: Roughly 50 mL. DRAINS: None. FINDINGS: As discussed above. BW:[email or web address] Job ID: [id number] Doc ID: [id number] Trey Delaney M.D.
[2022-01-08] MEDS: NEUTRA PHOS 1 PACKET PO SCH ×2 (09:36→21:21)
[2022-01-08] MEDS: DOCUSATE SODIUM 100 MG CAPSULE PO SCH ×2 (09:36→21:18)
[2022-01-08] MEDS: INSULIN GLARGINE, HUMAN 1 UNIT/0.01 ML SQ SCH (09:37)
[2022-01-08] MEDS: cefTRIAXone 2 GM in DEXTROSE 5% IN WATER 50 ML IV SCH (09:37)
[2022-01-08] MEDS: LISINOPRIL 5 MG TABLET PO SCH (09:41)
[2022-01-08] MEDS: oxyCODONE/APAP 10/325MG TABLET PO PRN ×2 (09:49→21:18)
[2022-01-08] MEDS: HYDROmorphone 0.5 MG/0.5 ML SYRINGE IV PRN (13:53)
--- NOTE | 2022-01-08 14:23 | General Surgery Progress Note ---
SUBJECTIVE Subjective Patient information: Note initiated : 01/08/22 at 1130 Service Date, if different from initiated Date: [] Patient: Amber Navarro 66 y/o F admitted on 01/05/22 for Nausea/Vomiting, Elevated Blood Glucose. Chief Complaint: [POD #3 Stacy's Gangrene] Resting comfortably this am, now on PPI gtt for severe gastritis/duodenitis - has had guiac pos stools, CT scan demonstrated evidence of severe gastritis/duodenitis Constitutional Vitals: Vital Signs Temp Pulse Resp BP Pulse Ox 97.2 F 84 15 122/57 96 01/08/22 12:00 01/08/22 13:00 01/08/22 13:00 01/08/22 13:00 01/08/22 13:00 Period Temp Pulse Resp BP Sys/Sherwood Pulse Ox Last 24 Hr 96.7 F-98.3 F 79-96 10-23 102-161/55-70 94-98 Intake and Output 01/08/22 01/08/22 01/08/22 05:59 13:59 21:59 Intake Total 450 254 Output Total 1250 315 47 Balance -800 -61 -47 Intake & Output: Intake & Output 01/08/22 01/08/22 01/08/22 05:59 13:59 21:59 Intake Total 450 254 Output Total 1250 315 47 Balance -800 -61 -47 Intake: IV 450 254 Cleocin 600 mg In Dextrose 5% 54 54 in Water 50 ml @ 100 mls/hr IV Q6H [facility] Rx#:[id number] Protonix 80 mg In Sodium 96 100 Chloride 0.9% 100 ml @ 8 MG/HR 10 mls/hr IV Q10H [facility] Rx#: [id number] Zosyn 3.375 gm In Dextrose 5% 50 50 in Water 50 ml @ 100 mls/hr IV Q6H [facility] Rx#:[id number] Vancomycin 1,000 mg In Sodium 250 Chloride 0.9% 250 ml @ 250 mls/ hr IV Q12H [facility] Rx#:[id number] Rocephin 2 gm In Dextrose 5% in 50 Water 50 ml @ 100 mls/hr IV Q24H [facility] Rx#:[id number] Oral 0 Output: Urine Catheter Amount 1250 315 47 Other: Urine Appearance Clear Clear Clear Urine Color Bright Yellow Bright Yellow Exam: resting comfortably, NAD Additional comments: dressing in place, not yet changed today 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 Change packing today and consult wound care for Wound VAC placement Regarding the evidence of gastritis/duodenitis, I would recommending continuing high dose PPI, sulcralfate and holding off for now on any Upper Endoscopy at this time Continue IV ABs for now pending final culture results Status: Acute Time Spent With Patient Time: Total time spent is greater than 50% in coordination of care (as documented) at patient's floor/unit and/or counseling patient:
[2022-01-08] MEDS: metroNIDAZOLE 500 MG in PREMIX 1 BAG IV SCH ×2 (14:26→22:10)
[2022-01-08] MEDS: SUCRALFATE 1 GM/10 ML ORAL.SUSP PO SCH ×2 (17:03→21:18)
--- NOTE | 2022-01-08 17:07 | Internal Med Progress Note ---
SUBJECTIVE Subjective Patient information: Note initiated : 01/08/22 at 5:06 pm Service Date, if different from initiated Date: [] Patient: Amber Navarro 66 y/o F admitted on 01/05/22 for Nausea/Vomiting, Elevated Blood Glucose. Chief Complaint: [] Principal diagnosis: Left groin pain Interval history: Ms. Navarro is a 66 year old female with no known past medical history, presenting with general body weakness and left groin pain for 2 weeks.The patient did not recall any trauma or injury to her groin but she does shave herself. There was no prior similar episode. About 2 weeks ago she started to notice pain and swelling of her left groin around her labia majora, and it burst open spontaneously about 4 days ago. It is associated with severe aching constant pain of her entire left groin with radiation to the surrounding body regions. She is also complaining of general body weakness, decreased appetite, fever and chills. She presented to our ED due to worsening of her symptoms. Labs significant for severe leukocytosis with WBC 30.2. Initial serum potassium level 2.7, initial POC glucose 685. BUN and creatinine 38 and 0.5, respectively suggesting degree of dehydration as well. Serum bicarb of 12 and anion gap of 17. Beta hydroxybutyrate also elevated. Serum lactic acid 1.7. Pelvic CT showing 10 cm region of extensive gas and phlegmonous inflammation in the subcutaneous fat of the left lower anterior pelvic wall with extension into the left lateral perivalvular regions. Findings suggestive of Stacy's gangrene. 01/06: s/p wound debridement by Dr. Delaney yesterday. Blood and wound cultures no growth to date. afebrile overnight. Continue Vancomycin and Zosyn. Anion gas has been closed this morning with blood glucose 149-->will transition from insulin drip to SQ insulin therapy. Patient is c/o mild left groin pain, denies any fever or chills or sweating. 01/07 WBC trending up but afebrile and stable. Procalcitonin trending down. Blood pressure high today, patient able to take oral meds so increased Lisinopril to 10 mg daily. Replaced potassium and phosphorus. Increased Lantus to 30 units HS and added Humalog [address] chest/abdomen/pelvis with contrast to evaluate for other infectious process causing increase in WBC. 01/08 CT scan showed findings consistent with severe duodenitis and gastritis. Started Protonix infusion and Sucralfate, general surgery declined EGD at this time. Stool H Pylori pending. Surgical cultures grew streptococcus anginosus so far, anaerobic results pending. Deescalated antibiotics to Ceftriaxone and Flagyl IV. The patient may need a wound VAC for wound cares. Physical exam Head: Atraumatic, normal inspection. Eyes: normal appearance, no scleral icterus. Neck: full ROM Respiratory: no respiratory distress. Cardiovascular: normal rate and rhythm, S1, S2. GI/Abdominal: large wound in right groin, packed Extremities: full range of motion, nontender. Neurological: CN II-XII intact, intact motor, intact sensation. Psychiatric: normal mood. Skin: warm, normal color Constitutional Vitals: Vital Signs Temp Pulse Resp BP Pulse Ox 97.3 F 89 12 110/84 94 01/08/22 16:01 01/08/22 17:04 01/08/22 17:04 01/08/22 17:01 01/08/22 17:04 Period Temp Pulse Resp BP Sys/Sherwood Pulse Ox Last 24 Hr 96.7 F-98.3 F 79-96 4-23 102-161/55-84 93-98 Intake and Output 01/08/22 01/08/22 01/08/22 05:59 13:59 21:59 Intake Total 450 254 Output Total 1250 315 77 Balance -800 -61 -77 Weight 61.87 kg Patient Weight 01/09/22 05:59 Weight 61.87 kg Intake & Output: Intake & Output 01/08/22 01/08/22 01/08/22 05:59 13:59 21:59 Intake Total 450 254 Output Total 1250 315 77 Balance -800 -61 -77 Weight 61.87 kg Intake: IV 450 254 Cleocin 600 mg In Dextrose 5% 54 54 in Water 50 ml @ 100 mls/hr IV Q6H [facility] Rx#:[id number] Protonix 80 mg In Sodium 96 100 Chloride 0.9% 100 ml @ 8 MG/HR 10 mls/hr IV Q10H [facility] Rx#: [id number] Zosyn 3.375 gm In Dextrose 5% 50 50 in Water 50 ml @ 100 mls/hr IV Q6H [facility] Rx#:[id number] Vancomycin 1,000 mg In Sodium 250 Chloride 0.9% 250 ml @ 250 mls/ hr IV Q12H [facility] Rx#:[id number] Rocephin 2 gm In Dextrose 5% in 50 Water 50 ml @ 100 mls/hr IV Q24H [facility] Rx#:[id number] Oral 0 Output: Urine Catheter Amount 1250 315 77 Other: Urine Appearance Clear Clear Clear Urine Color Bright Yellow Bright Yellow Stool Size Moderate Stool Color Brown Stool Consistency Liquid # Bowel Movements 1 OBJ DATA Labs CBC & Chem 7: 01/08/22 05:05 01/08/22 05:05 Labs: Abnormal Lab Results 01/08/22 01/08/22 01/08/22 05:05 05:05 05:05 WBC 29.2 H MCV Neut % (Auto) Lymph % (Auto) Lymph # (Auto) Robertson # (Auto) Seg Neutrophils % 86 H Lymphocytes % 8 L Absolute Neutrophils ABG Methemoglobin VBG pH VBG pCO2 VBG pO2 VBG HCO3 VBG Total CO2 VBG O2 Saturation VBG Base Excess Carboxyhemoglobin Potassium Chloride Carbon Dioxide Creatinine Glucose Hemoglobin A1c Uric Acid Calcium Phosphorus TIBC 157 L GGT Alkaline Phosphatase Lactate Dehydrogenase C-Reactive Protein Total Protein Albumin Albumin/Globulin Ratio Triglycerides Procalcitonin 0.34 H 01/08/22 01/07/22 01/07/22 05:05 05:29 05:29 WBC MCV Neut % (Auto) Lymph % (Auto) Lymph # (Auto) Robertson # (Auto) Seg Neutrophils % Lymphocytes % Absolute Neutrophils ABG Methemoglobin VBG pH VBG pCO2 VBG pO2 VBG HCO3 VBG Total CO2 VBG O2 Saturation VBG Base Excess Carboxyhemoglobin Potassium 3.1 L Chloride Carbon Dioxide 20 L 17 L Creatinine 0.4 L 0.4 L Glucose 163 H 230 H Hemoglobin A1c Uric Acid 1.4 L 1.3 L Calcium 7.4 L 7.1 L Phosphorus 1.8 L 1.9 L TIBC GGT 86 H 112 H Alkaline Phosphatase 127 H 135 H Lactate Dehydrogenase 239 H C-Reactive Protein 1.90 H Total Protein 4.8 L 5.4 L Albumin 1.9 L 2.2 L Albumin/Globulin Ratio 0.7 L 0.7 L Triglycerides 172 H Procalcitonin 0.23 H 01/07/22 01/06/22 01/06/22 05:29 15:44 04:07 WBC 36.1 H* MCV 78.8 L Neut % (Auto) 89.1 H Lymph % (Auto) 5.1 L Lymph # (Auto) Robertson # (Auto) 1.98 H Seg Neutrophils % Lymphocytes % Absolute Neutrophils 32.18 H ABG Methemoglobin VBG pH VBG pCO2 VBG pO2 VBG HCO3 VBG Total CO2 VBG O2 Saturation VBG Base Excess Carboxyhemoglobin Potassium Chloride 112 H Carbon Dioxide 16 L 13 L Creatinine 0.5 L 0.5 L Glucose 190 H 167 H Hemoglobin A1c Uric Acid Calcium 8.0 L 8.3 L Phosphorus 1.2 L 0.4 L TIBC GGT Alkaline Phosphatase 142 H Lactate Dehydrogenase C-Reactive Protein Total Protein Albumin 2.4 L 2.5 L Albumin/Globulin Ratio 0.7 L Triglycerides Procalcitonin 01/06/22 01/06/22 01/06/22 04:07 04:07 04:07 WBC 35.2 H* MCV 79.5 L Neut % (Auto) 91.2 H Lymph % (Auto) 3.0 L Lymph # (Auto) 1.05 L Robertson # (Auto) 1.90 H Seg Neutrophils % Lymphocytes % Absolute Neutrophils 32.09 H ABG Methemoglobin 0.1 L VBG pH 7.30 L VBG pCO2 30.9 L VBG pO2 46.7 H VBG HCO3 14.9 L VBG Total CO2 15.8 L VBG O2 Saturation 79.8 H VBG Base Excess -10 L Carboxyhemoglobin 3.6 H Potassium Chloride 111 H Carbon Dioxide 13 L Creatinine Glucose Hemoglobin A1c Uric Acid Calcium Phosphorus TIBC GGT Alkaline Phosphatase Lactate Dehydrogenase C-Reactive Protein Total Protein Albumin Albumin/Globulin Ratio Triglycerides Procalcitonin 01/05/22 01/05/22 01/05/22 23:52 23:51 20:05 WBC MCV Neut % (Auto) Lymph % (Auto) Lymph # (Auto) Robertson # (Auto) Seg Neutrophils % Lymphocytes % Absolute Neutrophils ABG Methemoglobin 0 L 0 L VBG pH 7.31 L VBG pCO2 23.8 L 27.6 L VBG pO2 87.1 H 67.9 H VBG HCO3 12.4 L 13.7 L VBG Total CO2 13.1 L 14.6 L VBG O2 Saturation 94.5 H 88.4 H VBG Base Excess -12 L -11 L Carboxyhemoglobin 2.6 H 5.5 H Potassium Chloride 112 H Carbon Dioxide 11 L Creatinine Glucose Hemoglobin A1c Uric Acid Calcium Phosphorus TIBC GGT Alkaline Phosphatase Lactate Dehydrogenase C-Reactive Protein Total Protein Albumin Albumin/Globulin Ratio Triglycerides Procalcitonin 01/05/22 01/05/22 10:27 10:26 WBC MCV Neut % (Auto) 88.1 H Lymph % (Auto) Lymph # (Auto) Robertson # (Auto) Seg Neutrophils % Lymphocytes % Absolute Neutrophils ABG Methemoglobin VBG pH VBG pCO2 VBG pO2 VBG HCO3 VBG Total CO2 VBG O2 Saturation VBG Base Excess Carboxyhemoglobin Potassium Chloride Carbon Dioxide Creatinine Glucose Hemoglobin A1c 10.4 H Uric Acid Calcium Phosphorus TIBC GGT Alkaline Phosphatase Lactate Dehydrogenase C-Reactive Protein Total Protein Albumin Albumin/Globulin Ratio Triglycerides Procalcitonin Meds: Medications Acetaminophen (Acetaminophen 325 Mg Tablet) 650 mg PO Q4-6HP PRN; Protocol PRN Reason: Per Pain Protocol/Fever > 101 Albuterol/Ipratropium (Ipratropium/Albuterol 3 Ml Ampul.Neb) 3 ml NEB Q4HRT PRN PRN Reason: Wheezing Calcium Carbonate/Glycine (Calcium Carbonate 500 Mg Tab.Chew) 500 mg CHEWED Q4HP PRN PRN Reason: Dyspepsia Last Admin: 01/07/22 13:39 Dose: 500 mg Documented by: Dextrose (Dextrose 50% 50 Ml Vial) 0 ml IV UD PRN PRN Reason: Hypoglycemia Diagnostic Test (Pha) (Accu-Chek 1 Each Strip) 1 each FS ACHS [facility] Last Admin: 01/08/22 17:03 Dose: 1 each Documented by: Docusate Sodium (Docusate Sodium 100 Mg Capsule) 100 mg PO BID [facility] Last Admin: 01/08/22 09:36 Dose: 100 mg Documented by: Glucose (Dextrose 31 Gm Oral.Susp) 15 gm PO PRN PRN PRN Reason: Hypoglycemia Hydromorphone HCl (Hydromorphone 0.5 Mg/0.5 Ml Syringe) 0.5 mg IV Q2HP PRN; Protocol PRN Reason: Per Pain Protocol Last Admin: 01/08/22 13:53 Dose: 0.5 mg Documented by: Acetaminophen (Ofirmev) 650 mg in 65 mls @ 130 mls/hr IV Q6HP PRN; Protocol PRN Reason: PAIN/FEVER > 101 Last Infusion: 01/06/22 23:30 Dose: Infused Documented by: Pantoprazole Sodium 80 mg/ (Sodium Chloride) 100 mls @ 10 mls/hr IV Q10H [facility] Last Admin: 01/08/22 11:45 Dose: 8 mg/hr, 10 mls/hr Documented by: Ceftriaxone Sodium 2 gm/ (Dextrose) 50 mls @ 100 mls/hr IV Q24H [facility]; Protocol Last Infusion: 01/08/22 11:16 Dose: Infused Documented by: Metronidazole 500 mg/ Premix 100 mls @ 100 mls/hr IV Q8H [facility]; Protocol Last Admin: 01/08/22 14:26 Dose: 100 mls/hr Documented by: Insulin Glargine (Insulin Glargine, Human 1 Unit/0.01 Ml) 30 unit SQ DAILY [facility] Last Admin: 01/08/22 09:37 Dose: 30 units Documented by: Insulin Human Lispro (Insulin Lispro 1 Unit/0.01 Ml Unit) 0 unit SQ [facility]; Protocol Last Admin: 01/08/22 17:03 Dose: Not Given Documented by: Insulin Human Lispro (Insulin Lispro 1 Unit/0.01 Ml Unit) 5 unit SQ AC [facility] Last Admin: 01/08/22 17:04 Dose: Not Given Documented by: Labetalol HCl (Labetalol 5 Mg/Ml Ml) 10 mg IV Q10M PRN PRN Reason: Blood Pressure - High Lisinopril (Lisinopril 5 Mg Tablet) 10 mg PO DAILY [facility] Last Admin: 01/08/22 09:41 Dose: 10 mg Documented by: Metoclopramide HCl (Metoclopramide 10 Mg/2 Ml Vial) 10 mg IV Q6HP PRN PRN Reason: Nausea And Vomiting Last Admin: 01/06/22 09:05 Dose: 10 mg Documented by: Ondansetron HCl (Ondansetron 4 Mg/2 Ml Vial) 4 mg IV Q4-6HP PRN; Protocol PRN Reason: Nausea And Vomiting Last Admin: 01/06/22 19:01 Dose: 4 mg Documented by: Oxycodone/Acetaminophen (Oxycodone/Apap 10/325mg Tablet) 1 tab PO Q4-6HP PRN; Protocol PRN Reason: Per Pain Protocol Last Admin: 01/08/22 09:49 Dose: 1 tab Documented by: Potassium/Phosphorus/Sodium (Neutra Phos 1 Packet) 2 packet PO BID [facility] Stop: 01/08/22 21:01 Last Admin: 01/08/22 09:36 Dose: 2 packet Documented by: Senna (Sennosides 8.8 Mg/5 Ml Ml) 8.8 mg PT DAILY PRN PRN Reason: Constipation Sodium Chloride (0.9 % Sodium Chloride 10 Ml Syringe) 10 ml IV Q8 [facility] Last Admin: 01/08/22 13:53 Dose: 10 ml Documented by: Sucralfate (Sucralfate 1 Gm/10 Ml Oral.Susp) 1 gm PO ACHS [facility] Last Admin: 01/08/22 17:03 Dose: 1 gm Documented by: ABG Interpretation ABG results: 01/05/22 01/05/22 01/05/22 16:06 20:05 23:51 ABG Methemoglobin 0.1 L 0 L 0 L VBG pH 7.18 L* 7.31 L 7.33 VBG pCO2 37.9 L 27.6 L 23.8 L VBG pO2 55.4 H 67.9 H 87.1 H VBG HCO3 13.9 L 13.7 L 12.4 L VBG Total CO2 15.1 L 14.6 L 13.1 L VBG O2 Saturation 80.4 H 88.4 H 94.5 H VBG Base Excess -14 L -11 L -12 L 01/06/22 04:07 ABG Methemoglobin 0.1 L VBG pH 7.30 L VBG pCO2 30.9 L VBG pO2 46.7 H VBG HCO3 14.9 L VBG Total CO2 15.8 L VBG O2 Saturation 79.8 H VBG Base Excess -10 L A/P Narrative A/P Narrative: Assessment: 66-year-old female with no known prior medical history admitted for Stacy's Gangrene and diabetic ketoacidosis. The patient has a new diagnosis of diabetes mellitus. #Stacy's Gangrene status post I&D 01/05/2022 #Sepsis due to Stacy's Gangrene #Duodenitis and gastritis #Leukocytosis of uncertain cause-infectious vs other? -improving now #Diabetes mellitus-new diagnosis -hgb A1C was 10.4 #Resolved diabetic ketoacidosis #Hypertension-previously untreated Plan -Deescalate antibiotics to Ceftriaxone and Metronidazole IV -Follow all cultures. -Follow WBC, procalcitonin. -Follow stool H pylori antigen. -Peripheral blood smear was requested for markedly elevated WBC. -Lantus 30 units HS, Humalog 5 units AC and SSIhigh. -Analgesics as needed. -Continue Lisinopril for elevated BP. -General surgery following. -Wound cares. -Diabetic diet. -DVT PPx: Heparin SQ -CODE STATUS: DNR/DNI -Disposition:TBD, will probably need a basal/bolus insulin regimen in the near term for optimal management of diabetes mellitus. Time Spent With Patient Time: Total time spent is greater than 50% in coordination of care (as documented) at patient's floor/unit and/or counseling patient: QUALITY VTE Deep Vein Thrombosis/Pulmonary Embolism Present on Admission: No
[2022-01-08] MEDS: HEPARIN 5,000 UNIT/ML VIAL SQ SCH (21:19)
[2022-01-09] MEDS: metroNIDAZOLE 500 MG in PREMIX 1 BAG IV SCH ×3 (05:45→21:26)
[2022-01-09] MEDS: 0.9 % SODIUM CHLORIDE 10 ML SYRINGE IV SCH ×3 (05:46→21:26)
[2022-01-09] MEDS: SUCRALFATE 1 GM/10 ML ORAL.SUSP PO SCH ×4 (06:55→21:25)
[2022-01-09 06:58] LABS: Hematocrit 34.6 % (34.1-44.9); Hemoglobin 11.9 g/dL (11.2-15.7); Mean Cell Volume 80.8 fL (80.0-100.0); Mean Corpuscular HGB Conc 34.4 g/dL (31.0-36.0); Mean Platelet Volume 9.6 fL (7.4-10.4); Platelet Count 282 K/mcL (140-440); RBC 4.28 M/mcL (3.59-5.38); WBC 25.7 K/mcL (4.5-11.0)
[2022-01-09] MEDS: INSULIN LISPRO 1 UNIT/0.01 ML UNIT SQ SCH ×7 (07:10→21:25)
[2022-01-09] MEDS: oxyCODONE/APAP 10/325MG TABLET PO PRN ×2 (07:11→17:02)
[2022-01-09 07:20] LABS: ALT/SGPT 9 U/L (<40); AST/SGOT 9 U/L (<32); Albumin/Globulin Ratio 0.6 (1.0-2.3); Alkaline Phosphatase 110 U/L (39-117); Bilirubin,Direct < 0.2 mg/dL (0-0.3); Bilirubin,Total 0.2 mg/dL (0.1-1.0); Blood Urea Nitrogen 11 mg/dL (8-23); Calcium 7.5 mg/dL (8.6-10.4); Carbon Dioxide 25 mmol/L (22-30); Chloride 104 mmol/L (96-108); Globulin 3.1 gm/dL (2.2-3.7); Glomerular Filtration Rate 107; Glucose 150 mg/dL (70-105); Lactate Dehydrogenase 177 U/L (135-225); Phosphorous 2.1 mg/dL (2.5-4.5); Triglycerides 128 mg/dL (<150); Uric Acid 1.8 mg/dL (2.5-8.0)
[2022-01-09] MEDS: PANTOPRAZOLE 80 MG in 0.9 % SODIUM CHLORIDE 100 ML IV SCH (08:14)
[2022-01-09] MEDS: DOCUSATE SODIUM 100 MG CAPSULE PO SCH ×2 (08:15→21:26)
[2022-01-09] MEDS: POTASSIUM CHLORIDE 20 MEQ TABLET PO SCH ×2 (10:02→17:03)
[2022-01-09] MEDS: cefTRIAXone 2 GM in DEXTROSE 5% IN WATER 50 ML IV SCH (10:02)
[2022-01-09] MEDS: PANTOPRAZOLE 40 MG PACKET PO SCH ×2 (10:02→17:02)
[2022-01-09] MEDS: LISINOPRIL 5 MG TABLET PO SCH (10:02)
[2022-01-09] MEDS: INSULIN GLARGINE, HUMAN 1 UNIT/0.01 ML SQ SCH (10:03)
--- NOTE | 2022-01-09 10:30 | General Surgery Progress Note ---
SUBJECTIVE Subjective Patient information: Note initiated : 01/09/22 at 10:20 am Service Date, if different from initiated Date: [] Patient: Amber Navarro 66 y/o F admitted on 01/05/22 for Nausea/Vomiting, Elevated Blood Glucose. Chief Complaint: [POD #4 Debridement and Washout Stacy's Gangrene] Looks and feels much improved this am. at bedside today. Less pain and feeling better overall. Principal diagnosis: Left groin pain Constitutional Vitals: Vital Signs Temp Pulse Resp BP Pulse Ox 98.1 F 97 H 17 130/55 93 01/09/22 08:01 01/09/22 10:01 01/09/22 10:01 01/09/22 10:01 01/09/22 10:01 Period Temp Pulse Resp BP Sys/Sherwood Pulse Ox Last 24 Hr 97.1 F-98.1 F 60-99 4-17 96-150/49-103 90-100 Intake and Output 01/08/22 01/09/22 01/09/22 21:59 05:59 13:59 Intake Total 560 250 300 Output Total 367 495 25 Balance 193 -245 275 Weight 132 lb 8 oz Intake & Output: Intake & Output 01/08/22 01/09/22 01/09/22 21:59 05:59 13:59 Intake Total 560 250 300 Output Total 367 495 25 Balance 193 -245 275 Weight 132 lb 8 oz Intake: IV 200 100 200 Protonix 80 mg In Sodium 100 100 Chloride 0.9% 100 ml @ 8 MG/HR 10 mls/hr IV Q10H [facility] Rx#: [id number] Flagyl 500 mg In Premix 1 Bag @ 100 100 100 100 mls/hr IV Q8H [facility] Rx#: [id number] Oral 0 150 100 GI Tube Flush 200 IV - Manual Only 100 Other 60 Output: Urine Catheter Amount 367 370 25 Uretheral (Mcpherson) 145 125 Stool 125 Other: Urine Appearance Clear Clear Clear Urine Color Bright Yellow Bright Yellow Stool Size Moderate Moderate Moderate Stool Color Brown Black Black Stool Consistency Liquid Liquid Liquid # Bowel Movements 1 1 1 # of times incontinent of 1 Bowels General appearance: cooperative and no acute distress Exam: looks well, fully conversant, NAD Additional comments: directed exam with nursing assistance to the Left Groin wound shows healthy looking tissues with early faint granulation and markedly diminished surrounding induration. 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: Assessment and plan: POD #4 post debridement Left Perivulvar Stacy's Doing much better overall and wound looks healthy without indication for additional debridement at this time and infection appears to be adequately controlled and resolving Wound VAC placement POLLY, continue current ABs for now and leave mcpherson in place until wound is more matured and controlled Continue high dose PPI therapy indefinitely and would recommend follow up EGD in a 4-6 weeks or so as an outpatient when inflammation is much improved to assure no underlying malignancy, ulcer, etc No additional operative indications at this time Status: Acute Time Spent With Patient Time: Total time spent is greater than 50% in coordination of care (as documented) at patient's floor/unit and/or counseling patient:
[2022-01-09] MEDS: HEPARIN 5,000 UNIT/ML VIAL SQ SCH (10:43)
[2022-01-09] MEDS: HYDROmorphone 0.5 MG/0.5 ML SYRINGE IV PRN (10:45)
--- NOTE | 2022-01-09 10:58 | Internal Med Progress Note ---
SUBJECTIVE Subjective Patient information: Note initiated : 01/09/22 at 10:49 am Service Date, if different from initiated Date: [] Patient: Amber Navarro 66 y/o F admitted on 01/05/22 for Nausea/Vomiting, Elevated Blood Glucose. Chief Complaint: [] Principal diagnosis: Left groin pain Interval history: Ms. Navarro is a 66 year old female with no known past medical history, presenting with general body weakness and left groin pain for 2 weeks.The patient did not recall any trauma or injury to her groin but she does shave herself. There was no prior similar episode. About 2 weeks ago she started to notice pain and swelling of her left groin around her labia majora, and it burst open spontaneously about 4 days ago. It is associated with severe aching constant pain of her entire left groin with radiation to the surrounding body regions. She is also complaining of general body weakness, decreased appetite, fever and chills. She presented to our ED due to worsening of her symptoms. Labs significant for severe leukocytosis with WBC 30.2. Initial serum potassium level 2.7, initial POC glucose 685. BUN and creatinine 38 and 0.5, respectively suggesting degree of dehydration as well. Serum bicarb of 12 and anion gap of 17. Beta hydroxybutyrate also elevated. Serum lactic acid 1.7. Pelvic CT showing 10 cm region of extensive gas and phlegmonous inflammation in the subcutaneous fat of the left lower anterior pelvic wall with extension into the left lateral perivalvular regions. Findings suggestive of Stacy's gangrene. 01/06: s/p wound debridement by Dr. Delaney yesterday. Blood and wound cultures no growth to date. afebrile overnight. Continue Vancomycin and Zosyn. Anion gas has been closed this morning with blood glucose 149-->will transition from insulin drip to SQ insulin therapy. Patient is c/o mild left groin pain, denies any fever or chills or sweating. 01/07 WBC trending up but afebrile and stable. Procalcitonin trending down. Blood pressure high today, patient able to take oral meds so increased Lisinopril to 10 mg daily. Replaced potassium and phosphorus. Increased Lantus to 30 units HS and added Humalog [address] chest/abdomen/pelvis with contrast to evaluate for other infectious process causing increase in WBC. 01/08 CT scan showed findings consistent with severe duodenitis and gastritis. Started Protonix infusion and Sucralfate, general surgery declined EGD at this time. Stool H Pylori pending. Surgical cultures grew streptococcus anginosus so far, anaerobic results pending. Deescalated antibiotics to Ceftriaxone and Flagyl IV. The patient may need a wound VAC for wound cares. 01/09 The patient feels better today, surgical culture now also grew multiple Prevotella species, WBC trending down now. Peripheral blood smear was not concerning for an underlying hematologic malignancy. Held heparin SQ for DVT prophylaxis due to multiple dark stools. H pyloric stool antigen was negative. Transitioned to oral Protonix BID. Continue Ceftriaxone and Metronidazole IV for now, awaiting final culture results. Surgery planning for wound VAC. Transfer to med/surg. Physical exam Head: Atraumatic, normal inspection. Eyes: normal appearance, no scleral icterus. Neck: full ROM Respiratory: no respiratory distress. Cardiovascular: normal rate and rhythm, S1, S2. GI/Abdominal: large wound in right groin, packed Extremities: full range of motion, nontender. Neurological: CN II-XII intact, intact motor, intact sensation. Psychiatric: normal mood. Skin: warm, normal color Constitutional Vitals: Vital Signs Temp Pulse Resp BP Pulse Ox 98.1 F 97 H 17 130/55 93 01/09/22 08:01 01/09/22 10:01 01/09/22 10:01 01/09/22 10:01 01/09/22 10:01 Period Temp Pulse Resp BP Sys/[place] Pulse Ox Last 24 Hr 97.1 F-98.1 F 60-99 4-17 96-150/49-103 90-100 Intake and Output 01/08/22 01/09/22 01/09/22 21:59 05:59 13:59 Intake Total 560 250 300 Output Total 367 495 200 Balance 193 -245 100 Weight 60.101 kg Intake & Output: Intake & Output 01/08/22 01/09/22 01/09/22 21:59 05:59 13:59 Intake Total 560 250 300 Output Total 367 495 200 Balance 193 -245 100 Weight 60.101 kg Intake: IV 200 100 200 Protonix 80 mg In Sodium 100 100 Chloride 0.9% 100 ml @ 8 MG/HR 10 mls/hr IV Q10H [facility] Rx#: [id number] Flagyl 500 mg In Premix 1 Bag @ 100 100 100 100 mls/hr IV Q8H [facility] Rx#: [id number] Oral 0 150 100 GI Tube Flush 200 IV - Manual Only 100 Other 60 Output: Urine Catheter Amount 367 370 200 Uretheral (Mcpherson) 145 125 Stool 125 Other: Meal Breakfast Percent of Meal Consumed 50% Urine Appearance Clear Clear Clear Urine Color Bright Yellow Bright Yellow Dark Yellow Stool Size Moderate Moderate Moderate Stool Color Brown Black Black Stool Consistency Liquid Liquid Liquid # Bowel Movements 1 1 1 # of times incontinent of 1 Bowels OBJ DATA Labs CBC & Chem 7: 01/09/22 05:35 01/09/22 05:35 Labs: Abnormal Lab Results 01/09/22 01/09/22 01/09/22 05:35 05:35 05:35 WBC 25.7 H MCV Neut % (Auto) Lymph % (Auto) [place] # (Auto) Seg Neutrophils % Lymphocytes % Absolute Neutrophils Potassium 3.0 L Carbon Dioxide Creatinine 0.4 L Glucose 150 H Uric Acid 1.8 L Calcium 7.5 L Phosphorus 2.1 L TIBC GGT 80 H Alkaline Phosphatase Lactate Dehydrogenase C-Reactive Protein Total Protein 5.1 L Albumin 2.0 L Albumin/Globulin Ratio 0.6 L Triglycerides Procalcitonin 0.26 H 01/08/22 01/08/22 01/08/22 05:05 05:05 05:05 WBC 29.2 H MCV Neut % (Auto) Lymph % (Auto) [place] # (Auto) Seg Neutrophils % 86 H Lymphocytes % 8 L Absolute Neutrophils Potassium Carbon Dioxide Creatinine Glucose Uric Acid Calcium Phosphorus TIBC 157 L GGT Alkaline Phosphatase Lactate Dehydrogenase C-Reactive Protein Total Protein Albumin Albumin/Globulin Ratio Triglycerides Procalcitonin 0.34 H 01/08/22 01/07/22 01/07/22 05:05 05:29 05:29 WBC MCV Neut % (Auto) Lymph % (Auto) [place] # (Auto) Seg Neutrophils % Lymphocytes % Absolute Neutrophils Potassium 3.1 L Carbon Dioxide 20 L 17 L Creatinine 0.4 L 0.4 L Glucose 163 H 230 H Uric Acid 1.4 L 1.3 L Calcium 7.4 L 7.1 L Phosphorus 1.8 L 1.9 L TIBC GGT 86 H 112 H Alkaline Phosphatase 127 H 135 H Lactate Dehydrogenase 239 H C-Reactive Protein 1.90 H Total Protein 4.8 L 5.4 L Albumin 1.9 L 2.2 L Albumin/Globulin Ratio 0.7 L 0.7 L Triglycerides 172 H Procalcitonin 0.23 H 01/07/22 01/06/22 05:29 15:44 WBC 36.1 H* MCV 78.8 L Neut % (Auto) 89.1 H Lymph % (Auto) 5.1 L [place] # (Auto) 1.98 H Seg Neutrophils % Lymphocytes % Absolute Neutrophils 32.18 H Potassium Carbon Dioxide 16 L Creatinine 0.5 L Glucose 190 H Uric Acid Calcium 8.0 L Phosphorus 1.2 L TIBC GGT Alkaline Phosphatase Lactate Dehydrogenase C-Reactive Protein Total Protein Albumin 2.4 L Albumin/Globulin Ratio Triglycerides Procalcitonin Meds: Medications Acetaminophen (Acetaminophen 325 Mg Tablet) 650 mg PO Q4-6HP PRN; Protocol PRN Reason: Per Pain Protocol/Fever > 101 Albuterol/Ipratropium (Ipratropium/Albuterol 3 Ml Ampul.Neb) 3 ml NEB Q4HRT PRN PRN Reason: Wheezing Calcium Carbonate/Glycine (Calcium Carbonate 500 Mg Tab.Chew) 500 mg CHEWED Q4HP PRN PRN Reason: Dyspepsia Last Admin: 01/07/22 13:39 Dose: 500 mg Documented by: Dextrose (Dextrose 50% 50 Ml Vial) 0 ml IV UD PRN PRN Reason: Hypoglycemia Diagnostic Test (Pha) (Accu-Chek 1 Each Strip) 1 each FS ACHS [facility] Last Admin: 01/09/22 06:56 Dose: 1 each Documented by: Docusate Sodium (Docusate Sodium 100 Mg Capsule) 100 mg PO BID [facility] Last Admin: 01/09/22 08:15 Dose: Not Given Documented by: Glucose (Dextrose 31 Gm Oral.Susp) 15 gm PO PRN PRN PRN Reason: Hypoglycemia Hydromorphone HCl (Hydromorphone 0.5 Mg/0.5 Ml Syringe) 0.5 mg IV Q2HP PRN; Protocol PRN Reason: Per Pain Protocol Last Admin: 01/08/22 13:53 Dose: 0.5 mg Documented by: Acetaminophen (Ofirmev) 650 mg in 65 mls @ 130 mls/hr IV Q6HP PRN; Protocol PRN Reason: PAIN/FEVER > 101 Last Infusion: 01/06/22 23:30 Dose: Infused Documented by: Ceftriaxone Sodium 2 gm/ (Dextrose) 50 mls @ 100 mls/hr IV Q24H [facility]; Protocol Last Admin: 01/09/22 10:02 Dose: 100 mls/hr Documented by: Metronidazole 500 mg/ Premix 100 mls @ 100 mls/hr IV Q8H [facility]; Protocol Last Infusion: 01/09/22 08:14 Dose: Infused Documented by: Insulin Glargine (Insulin Glargine, Human 1 Unit/0.01 Ml) 30 unit SQ DAILY [facility] Last Admin: 01/09/22 10:03 Dose: 30 units Documented by: Insulin Human Lispro (Insulin Lispro 1 Unit/0.01 Ml Unit) 0 unit SQ ACHS [facility]; Protocol Last Admin: 01/09/22 07:10 Dose: 3 units Documented by: Insulin Human Lispro (Insulin Lispro 1 Unit/0.01 Ml Unit) 5 unit SQ AC [facility] Last Admin: 01/09/22 08:12 Dose: Not Given Documented by: Labetalol HCl (Labetalol 5 Mg/Ml Ml) 10 mg IV Q10M PRN PRN Reason: Blood Pressure - High Lisinopril (Lisinopril 5 Mg Tablet) 10 mg PO DAILY [facility] Last Admin: 01/09/22 10:02 Dose: 10 mg Documented by: Metoclopramide HCl (Metoclopramide 10 Mg/2 Ml Vial) 10 mg IV Q6HP PRN PRN Reason: Nausea And Vomiting Last Admin: 01/06/22 09:05 Dose: 10 mg Documented by: Ondansetron HCl (Ondansetron 4 Mg/2 Ml Vial) 4 mg IV Q4-6HP PRN; Protocol PRN Reason: Nausea And Vomiting Last Admin: 01/06/22 19:01 Dose: 4 mg Documented by: Oxycodone/Acetaminophen (Oxycodone/Apap 10/325mg Tablet) 1 tab PO Q4-6HP PRN; Protocol PRN Reason: Per Pain Protocol Last Admin: 01/09/22 07:11 Dose: 1 tab Documented by: Pantoprazole Sodium (Pantoprazole 40 Mg Packet) 40 mg PO BIDAC [facility] Last Admin: 01/09/22 10:02 Dose: 40 mg Documented by: Potassium Chloride (Potassium Chloride 20 Meq Tablet) 40 meq PO BIDCC [facility] Stop: 01/09/22 17:31 Last Admin: 01/09/22 10:02 Dose: 40 meq Documented by: Senna (Sennosides 8.8 Mg/5 Ml Ml) 8.8 mg PT DAILY PRN PRN Reason: Constipation Sodium Chloride (0.9 % Sodium Chloride 10 Ml Syringe) 10 ml IV Q8 [facility] Last Admin: 01/09/22 05:46 Dose: 10 ml Documented by: Sucralfate (Sucralfate 1 Gm/10 Ml Oral.Susp) 1 gm PO ACHS [facility] Last Admin: 01/09/22 06:55 Dose: 1 gm Documented by: ABG Interpretation ABG results: 01/05/22 01/05/22 01/05/22 16:06 20:05 23:51 ABG Methemoglobin 0.1 L 0 L 0 L VBG pH 7.18 L* 7.31 L 7.33 VBG pCO2 37.9 L 27.6 L 23.8 L VBG pO2 55.4 H 67.9 H 87.1 H VBG HCO3 13.9 L 13.7 L 12.4 L VBG Total CO2 15.1 L 14.6 L 13.1 L VBG O2 Saturation 80.4 H 88.4 H 94.5 H VBG Base Excess -14 L -11 L -12 L 01/06/22 04:07 ABG Methemoglobin 0.1 L VBG pH 7.30 L VBG pCO2 30.9 L VBG pO2 46.7 H VBG HCO3 14.9 L VBG Total CO2 15.8 L VBG O2 Saturation 79.8 H VBG Base Excess -10 L A/P Narrative A/P Narrative: Assessment: 66-year-old female with no known prior medical history admitted for Stacy's Gangrene and diabetic ketoacidosis. The patient has a new diagnosis of diabetes mellitus. 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 -Follow all cultures. -Follow WBC, improving. -Transition to oral Protonix BID, d/c Protonix ggt. -Continue Sucralfate QID. -Lantus 30 units HS, Humalog 5 units AC and SSIhigh. -Analgesics as needed. -Continue Lisinopril for elevated BP. -General surgery following, planning for wound VAC. -Remove mcpherson catheter when able. -Wound cares. -Diabetic diet. -DVT PPx: Heparin SQ -CODE STATUS: DNR/DNI -Disposition: Will depend on functional status and wound care needs at discharge, anticipate discharge on oral antibiotics. Will probably need a basal/bolus insulin regimen in the near term for optimal management of diabetes mellitus which is a new diagnosis. Time Spent With Patient Time: Total time spent is greater than 50% in coordination of care (as documented) at patient's floor/unit and/or counseling patient: QUALITY VTE Deep Vein Thrombosis/Pulmonary Embolism Present on Admission: No
[2022-01-09 11:08] LABS: Band Neutrophils % 3 % (0-10); Lymphocytes % 4 % (15-49); Monocytes % (Manual) 7 % (1-12); Platelet Estimate NORMAL (Normal); RBC Morphology NORMAL (Normal); Segmented Neutrophils % 86 % (38-78)
[2022-01-09] MEDS ORDERED: PHOSPHORUS 250 MG TABLET PO ONE (13:53)
--- NOTE | 2022-01-09 13:53 | Internal Med Progress Note ---
SUBJECTIVE Subjective Patient information: Note initiated : 01/09/22 at 1:46 pm Service Date, if different from initiated Date: [] Patient: Amber Navarro 66 y/o F admitted on 01/05/22 for Nausea/Vomiting, Elevated Blood Glucose. Chief Complaint: [] Principal diagnosis: Left groin pain Interval history: Ms. Navraro is a 66 year old female with no known past medical history, presenting with general body weakness and left groin pain for 2 weeks.The patient did not recall any trauma or injury to her groin but she does shave herself. There was no prior similar episode. About 2 weeks ago she started to notice pain and swelling of her left groin around her labia majora, and it burst open spontaneously about 4 days ago. It is associated with severe aching constant pain of her entire left groin with radiation to the surrounding body regions. She is also complaining of general body weakness, decreased appetite, fever and chills. She presented to our ED due to worsening of her symptoms. Labs significant for severe leukocytosis with WBC 30.2. Initial serum potassium level 2.7, initial POC glucose 685. BUN and creatinine 38 and 0.5, respectively suggesting degree of dehydration as well. Serum bicarb of 12 and anion gap of 17. Beta hydroxybutyrate also elevated. Serum lactic acid 1.7. Pelvic CT showing 10 cm region of extensive gas and phlegmonous inflammation in the subcutaneous fat of the left lower anterior pelvic wall with extension into the left lateral perivalvular regions. Findings suggestive of Stacy's gangrene. 01/06: s/p wound debridement by Dr. Delaney yesterday. Blood and wound cultures no growth to date. afebrile overnight. Continue Vancomycin and Zosyn. Anion gas has been closed this morning with blood glucose 149-->will transition from insulin drip to SQ insulin therapy. Patient is c/o mild left groin pain, denies any fever or chills or sweating. 01/07 WBC trending up but afebrile and stable. Procalcitonin trending down. Blood pressure high today, patient able to take oral meds so increased Lisinopril to 10 mg daily. Replaced potassium and phosphorus. Increased Lantus to 30 units HS and added Humalog [address] chest/abdomen/pelvis with contrast to evaluate for other infectious process causing increase in WBC. 01/08 CT scan showed findings consistent with severe duodenitis and gastritis. Started Protonix infusion and Sucralfate, general surgery declined EGD at this time. Stool H Pylori pending. Surgical cultures grew streptococcus anginosus so far, anaerobic results pending. Deescalated antibiotics to Ceftriaxone and Flagyl IV. The patient may need a wound VAC for wound cares. 01/09 The patient feels better today, surgical culture now also grew multiple Prevotella species, WBC trending down now. Peripheral blood smear was not concerning for an underlying hematologic malignancy. Held heparin SQ for DVT prophylaxis due to multiple dark stools. H pyloric stool antigen was negative. Transitioned to oral Protonix BID. Continue Ceftriaxone and Metronidazole IV for now, awaiting final culture results. Surgery planning for wound VAC. Transfer to med/surg. 01/10 Constitutional Vitals: Vital Signs Temp Pulse Resp BP Pulse Ox 97.5 F 90 16 134/70 96 01/09/22 11:15 01/09/22 11:15 01/09/22 11:15 01/09/22 11:15 01/09/22 11:15 Period Temp Pulse Resp BP Sys/[place] Pulse Ox Last 24 Hr 97.1 F-98.1 F 60-99 4-17 96-150/49-103 90-100 Intake and Output 01/08/22 01/09/22 01/09/22 21:59 05:59 13:59 Intake Total 560 250 350 Output Total 367 495 200 Balance 193 -245 150 Weight 60.101 kg Intake & Output: Intake & Output 01/08/22 01/09/22 01/09/22 21:59 05:59 13:59 Intake Total 560 250 350 Output Total 367 495 200 Balance 193 -245 150 Weight 60.101 kg Intake: IV 200 100 250 Protonix 80 mg In Sodium 100 100 Chloride 0.9% 100 ml @ 8 MG/HR 10 mls/hr IV Q10H [facility] Rx#: [id number] Rocephin 2 gm In Dextrose 5% in 50 Water 50 ml @ 100 mls/hr IV Q24H [facility] Rx#:[id number] Flagyl 500 mg In Premix 1 Bag @ 100 100 100 100 mls/hr IV Q8H [facility] Rx#: [id number] Oral 0 150 100 GI Tube Flush 200 IV - Manual Only 100 Other 60 Output: Urine Catheter Amount 367 370 200 Uretheral (Mcpherson) 145 125 Stool 125 Other: Meal Breakfast Percent of Meal Consumed 50% Urine Appearance Clear Clear Clear Urine Color Bright Yellow Bright Yellow Dark Yellow Stool Size Moderate Moderate Moderate Stool Color Brown Black Black Stool Consistency Liquid Liquid Liquid # Bowel Movements 1 1 1 # of times incontinent of 1 Bowels Exam: General: Alert, Awake, No acute Distress Eyes/N/T: EOMI, Head/Neck: neck supple, CV: RRR, No murmurs, Pulm: Clear b/l, no wheezing/rhonchi/rales Abd: soft, nontender, +BS x4, large wound in right groin, packed Ext: no clubbing/cyanosis/edema Neuro: Alert, no focal deficits, moves all extremities, Skin: warm/dry OBJ DATA Labs CBC & Chem 7: 01/09/22 05:35 01/09/22 05:35 Labs: Abnormal Lab Results 01/09/22 01/09/22 01/09/22 05:35 05:35 05:35 WBC 25.7 H MCV Neut % (Auto) Lymph % (Auto) [place] # (Auto) Seg Neutrophils % 86 H Lymphocytes % 4 L Absolute Neutrophils Potassium 3.0 L Carbon Dioxide Creatinine 0.4 L Glucose 150 H Uric Acid 1.8 L Calcium 7.5 L Phosphorus 2.1 L TIBC GGT 80 H Alkaline Phosphatase Lactate Dehydrogenase C-Reactive Protein Total Protein 5.1 L Albumin 2.0 L Albumin/Globulin Ratio 0.6 L Triglycerides Procalcitonin 0.26 H 01/08/22 01/08/22 01/08/22 05:05 05:05 05:05 WBC 29.2 H MCV Neut % (Auto) Lymph % (Auto) [place] # (Auto) Seg Neutrophils % 86 H Lymphocytes % 8 L Absolute Neutrophils Potassium Carbon Dioxide Creatinine Glucose Uric Acid Calcium Phosphorus TIBC 157 L GGT Alkaline Phosphatase Lactate Dehydrogenase C-Reactive Protein Total Protein Albumin Albumin/Globulin Ratio Triglycerides Procalcitonin 0.34 H 01/08/22 01/07/22 01/07/22 05:05 05:29 05:29 WBC MCV Neut % (Auto) Lymph % (Auto) [place] # (Auto) Seg Neutrophils % Lymphocytes % Absolute Neutrophils Potassium 3.1 L Carbon Dioxide 20 L 17 L Creatinine 0.4 L 0.4 L Glucose 163 H 230 H Uric Acid 1.4 L 1.3 L Calcium 7.4 L 7.1 L Phosphorus 1.8 L 1.9 L TIBC GGT 86 H 112 H Alkaline Phosphatase 127 H 135 H Lactate Dehydrogenase 239 H C-Reactive Protein 1.90 H Total Protein 4.8 L 5.4 L Albumin 1.9 L 2.2 L Albumin/Globulin Ratio 0.7 L 0.7 L Triglycerides 172 H Procalcitonin 0.23 H 01/07/22 01/06/22 05:29 15:44 WBC 36.1 H* MCV 78.8 L Neut % (Auto) 89.1 H Lymph % (Auto) 5.1 L [place] # (Auto) 1.98 H Seg Neutrophils % Lymphocytes % Absolute Neutrophils 32.18 H Potassium Carbon Dioxide 16 L Creatinine 0.5 L Glucose 190 H Uric Acid Calcium 8.0 L Phosphorus 1.2 L TIBC GGT Alkaline Phosphatase Lactate Dehydrogenase C-Reactive Protein Total Protein Albumin 2.4 L Albumin/Globulin Ratio Triglycerides Procalcitonin Meds: Medications Acetaminophen (Acetaminophen 325 Mg Tablet) 650 mg PO Q4-6HP PRN; Protocol PRN Reason: Per Pain Protocol/Fever > 101 Albuterol/Ipratropium (Ipratropium/Albuterol 3 Ml Ampul.Neb) 3 ml NEB Q4HRT PRN PRN Reason: Wheezing Calcium Carbonate/Glycine (Calcium Carbonate 500 Mg Tab.Chew) 500 mg CHEWED Q4HP PRN PRN Reason: Dyspepsia Last Admin: 01/07/22 13:39 Dose: 500 mg Documented by: Dextrose (Dextrose 50% 50 Ml Vial) 0 ml IV UD PRN PRN Reason: Hypoglycemia Diagnostic Test (Pha) (Accu-Chek 1 Each Strip) 1 each FS ACHS [facility] Last Admin: 01/09/22 11:14 Dose: 1 each Documented by: Docusate Sodium (Docusate Sodium 100 Mg Capsule) 100 mg PO BID [facility] Last Admin: 01/09/22 08:15 Dose: Not Given Documented by: Glucose (Dextrose 31 Gm Oral.Susp) 15 gm PO PRN PRN PRN Reason: Hypoglycemia Hydromorphone HCl (Hydromorphone 0.5 Mg/0.5 Ml Syringe) 0.5 mg IV Q2HP PRN; Protocol PRN Reason: Per Pain Protocol Last Admin: 01/09/22 10:45 Dose: 0.5 mg Documented by: Acetaminophen (Ofirmev) 650 mg in 65 mls @ 130 mls/hr IV Q6HP PRN; Protocol PRN Reason: PAIN/FEVER > 101 Last Infusion: 01/06/22 23:30 Dose: Infused Documented by: Ceftriaxone Sodium 2 gm/ (Dextrose) 50 mls @ 100 mls/hr IV Q24H [facility]; Protocol Last Infusion: 01/09/22 11:04 Dose: Infused Documented by: Metronidazole 500 mg/ Premix 100 mls @ 100 mls/hr IV Q8H [facility]; Protocol Last Infusion: 01/09/22 08:14 Dose: Infused Documented by: Insulin Glargine (Insulin Glargine, Human 1 Unit/0.01 Ml) 30 unit SQ DAILY [facility] Last Admin: 01/09/22 10:03 Dose: 30 units Documented by: Insulin Human Lispro (Insulin Lispro 1 Unit/0.01 Ml Unit) 0 unit SQ [facility]; Protocol Last Admin: 01/09/22 11:30 Dose: 9 units Documented by: Insulin Human Lispro (Insulin Lispro 1 Unit/0.01 Ml Unit) 5 unit SQ [facility] Last Admin: 01/09/22 12:03 Dose: Not Given Documented by: Labetalol HCl (Labetalol 5 Mg/Ml Ml) 10 mg IV Q10M PRN PRN Reason: Blood Pressure - High Lisinopril (Lisinopril 5 Mg Tablet) 10 mg PO DAILY [facility] Last Admin: 01/09/22 10:02 Dose: 10 mg Documented by: Metoclopramide HCl (Metoclopramide 10 Mg/2 Ml Vial) 10 mg IV Q6HP PRN PRN Reason: Nausea And Vomiting Last Admin: 01/06/22 09:05 Dose: 10 mg Documented by: Ondansetron HCl (Ondansetron 4 Mg/2 Ml Vial) 4 mg IV Q4-6HP PRN; Protocol PRN Reason: Nausea And Vomiting Last Admin: 01/06/22 19:01 Dose: 4 mg Documented by: Oxycodone/Acetaminophen (Oxycodone/Apap 10/325mg Tablet) 1 tab PO Q4-6HP PRN; Protocol PRN Reason: Per Pain Protocol Last Admin: 01/09/22 07:11 Dose: 1 tab Documented by: Pantoprazole Sodium (Pantoprazole 40 Mg Packet) 40 mg PO BIDAC [facility] Last Admin: 01/09/22 10:02 Dose: 40 mg Documented by: Potassium Chloride (Potassium Chloride 20 Meq Tablet) 40 meq PO BIDCC [facility] Stop: 01/09/22 17:31 Last Admin: 01/09/22 10:02 Dose: 40 meq Documented by: Senna (Sennosides 8.8 Mg/5 Ml Ml) 8.8 mg PT DAILY PRN PRN Reason: Constipation Sodium Chloride (0.9 % Sodium Chloride 10 Ml Syringe) 10 ml IV Q8 [facility] Last Admin: 01/09/22 05:46 Dose: 10 ml Documented by: Sucralfate (Sucralfate 1 Gm/10 Ml Oral.Susp) 1 gm PO ACHS [facility] Last Admin: 01/09/22 11:30 Dose: 1 gm Documented by: ABG Interpretation ABG results: 01/05/22 01/05/22 01/05/22 16:06 20:05 23:51 ABG Methemoglobin 0.1 L 0 L 0 L VBG pH 7.18 L* 7.31 L 7.33 VBG pCO2 37.9 L 27.6 L 23.8 L VBG pO2 55.4 H 67.9 H 87.1 H VBG HCO3 13.9 L 13.7 L 12.4 L VBG Total CO2 15.1 L 14.6 L 13.1 L VBG O2 Saturation 80.4 H 88.4 H 94.5 H VBG Base Excess -14 L -11 L -12 L 01/06/22 04:07 ABG Methemoglobin 0.1 L VBG pH 7.30 L VBG pCO2 30.9 L VBG pO2 46.7 H VBG HCO3 14.9 L VBG Total CO2 15.8 L VBG O2 Saturation 79.8 H VBG Base Excess -10 L A/P Narrative A/P Narrative: A: #Stacy's Gangrene: s/p I&D (01/05/2022): #Sepsis: 2/2 above, Resolved #Duodenitis and gastritis: -H pylori stool antigen was negative; General surgery deferred EGD #Improving leukocytosis: no bandemia -peripheral blood smear was negative for dysplastic changes or blasts -improving #Hypokalemia/phos: #Diabetes mellitus (new diagnosis): -hgb A1C was 10.4 #DKA: Resolved #Hypertension: previously untreated #Generalized weakness Plan -Continue Ceftriaxone/Metronidazole IV for now, could probably transition to Augmentin or Amoxacillin/flagyl if cultures no change -Follow all cultures -cont oral Protonix BID, Sucralfate QID. -Lantus 30 qHS, Humalog 5 AC, SSIhigh. -Continue Lisinopril -General surgery following, planning for wound VAC. -Remove mcpherson catheter when able. -Wound cares. -Disposition: Will depend on functional status and wound care needs at discharge, anticipate discharge on oral antibiotics. Will probably need a basal/bolus insulin regimen in the near term for optimal management of diabetes mellitus which is a new diagnosis. -PPx: Heparin SQ / ppi CODE STATUS: DNR/DNI Time Spent With Patient Time: Total time spent is greater than 50% in coordination of care (as documented) at patient's floor/unit and/or counseling patient: QUALITY VTE Deep Vein Thrombosis/Pulmonary Embolism Present on Admission: No
[2022-01-10] MEDS: metroNIDAZOLE 500 MG in PREMIX 1 BAG IV SCH ×3 (05:30→22:03)
[2022-01-10] MEDS: 0.9 % SODIUM CHLORIDE 10 ML SYRINGE IV SCH ×3 (05:31→22:03)
[2022-01-10 06:52] LABS: Hematocrit 36.4 % (34.1-44.9); Hemoglobin 12.4 g/dL (11.2-15.7); Mean Cell Volume 81.8 fL (80.0-100.0); Mean Corpuscular HGB Conc 34.1 g/dL (31.0-36.0); Mean Platelet Volume 9.9 fL (7.4-10.4); Platelet Count 304 K/mcL (140-440); RBC 4.45 M/mcL (3.59-5.38); Red Cell Distribution Width 13.1 % (11.5-14.5); WBC 26.4 K/mcL (4.5-11.0)
[2022-01-10 07:15] LABS: ALT/SGPT 8 U/L (<40); AST/SGOT 10 U/L (<32); Albumin 2.2 gm/dL (3.2-5.2); Albumin/Globulin Ratio 0.7 (1.0-2.3); Alkaline Phosphatase 116 U/L (39-117); Bilirubin,Direct < 0.2 mg/dL (0-0.3); Bilirubin,Total 0.2 mg/dL (0.1-1.0); Blood Urea Nitrogen 15 mg/dL (8-23); Calcium 8.1 mg/dL (8.6-10.4); Carbon Dioxide 26 mmol/L (22-30); Chloride 101 mmol/L (96-108); Globulin 3.3 gm/dL (2.2-3.7); Glomerular Filtration Rate 107; Glucose 132 mg/dL (70-105); Lactate Dehydrogenase 184 U/L (135-225); Phosphorous 2.1 mg/dL (2.5-4.5); Triglycerides 88 mg/dL (<150)
[2022-01-10] MEDS: INSULIN LISPRO 1 UNIT/0.01 ML UNIT SQ SCH ×7 (07:22→20:53)
[2022-01-10] MEDS: DOCUSATE SODIUM 100 MG CAPSULE PO SCH ×2 (07:23→20:47)
[2022-01-10] MEDS: oxyCODONE/APAP 10/325MG TABLET PO PRN (07:32)
[2022-01-10] MEDS: PANTOPRAZOLE 40 MG PACKET PO SCH ×2 (07:33→17:17)
[2022-01-10] MEDS: SUCRALFATE 1 GM/10 ML ORAL.SUSP PO SCH ×4 (07:33→20:46)
--- NOTE | 2022-01-10 07:40 | Internal Med Progress Note ---
SUBJECTIVE Subjective Patient information: Note initiated : 01/10/22 at 7:31 am Service Date, if different from initiated Date: [] Patient: Amber Navarro 66 y/o F admitted on 01/05/22 for Nausea/Vomiting, Elevated Blood Glucose. Chief Complaint: [] Principal diagnosis: Left groin pain Interval history: Ms. Navarro is a 66 year old female with no known past medical history, presenting with general body weakness and left groin pain for 2 weeks.The patient did not recall any trauma or injury to her groin but she does shave herself. There was no prior similar episode. About 2 weeks ago she started to notice pain and swelling of her left groin around her labia majora, and it burst open spontaneously about 4 days ago. It is associated with severe aching constant pain of her entire left groin with radiation to the surrounding body regions. She is also complaining of general body weakness, decreased appetite, fever and chills. She presented to our ED due to worsening of her symptoms. Labs significant for severe leukocytosis with WBC 30.2. Initial serum potassium level 2.7, initial POC glucose 685. BUN and creatinine 38 and 0.5, respectively suggesting degree of dehydration as well. Serum bicarb of 12 and anion gap of 17. Beta hydroxybutyrate also elevated. Serum lactic acid 1.7. Pelvic CT showing 10 cm region of extensive gas and phlegmonous inflammation in the subcutaneous fat of the left lower anterior pelvic wall with extension into the left lateral perivalvular regions. Findings suggestive of Stacy's gangrene. 01/06: s/p wound debridement by Dr. Delaney yesterday. Blood and wound cultures no growth to date. afebrile overnight. Continue Vancomycin and Zosyn. Anion gas has been closed this morning with blood glucose 149-->will transition from insulin drip to SQ insulin therapy. Patient is c/o mild left groin pain, denies any fever or chills or sweating. 01/07 WBC trending up but afebrile and stable. Procalcitonin trending down. Blood pressure high today, patient able to take oral meds so increased Lisinopril to 10 mg daily. Replaced potassium and phosphorus. Increased Lantus to 30 units HS and added Humalog [address] chest/abdomen/pelvis with contrast to evaluate for other infectious process causing increase in WBC. 01/08 CT scan showed findings consistent with severe duodenitis and gastritis. Started Protonix infusion and Sucralfate, general surgery declined EGD at this time. Stool H Pylori pending. Surgical cultures grew streptococcus anginosus so far, anaerobic results pending. Deescalated antibiotics to Ceftriaxone and Flagyl IV. The patient may need a wound VAC for wound cares. 01/09 The patient feels better today, surgical culture now also grew multiple Prevotella species, WBC trending down now. Peripheral blood smear was not concerning for an underlying hematologic malignancy. Held heparin SQ for DVT prophylaxis due to multiple dark stools. H pyloric stool antigen was negative. Transitioned to oral Protonix BID. Continue Ceftriaxone and Metronidazole IV for now, awaiting final culture results. Surgery planning for wound VAC. Transfer to med/surg. 01/10 Slept well and feeling much better. Getting wound VAC today. System leukocytosis but patient is afebrile and does not appear toxic. Review of Systems: denies headache/fever/chills/nausea/vomiting/chest or abdominal pain/cough/dyspnea. Otherwise see above. Constitutional Vitals: Vital Signs Temp Pulse Resp BP Pulse Ox 97.3 F 81 18 138/58 98 01/10/22 00:17 01/10/22 00:17 01/10/22 00:17 01/10/22 00:17 01/10/22 00:17 Period Temp Pulse Resp BP Sys/[place] Pulse Ox Last 24 Hr 97.1 F-98.1 F 80-97 4-18 124-138/55-103 90-100 Intake and Output 01/09/22 01/10/22 01/10/22 21:59 05:59 13:59 Intake Total 340 100 100 Output Total 350 550 Balance -10 -450 100 Weight 61.49 kg Intake & Output: Intake & Output 01/09/22 01/10/22 01/10/22 21:59 05:59 13:59 Intake Total 340 100 100 Output Total 350 550 Balance -10 -450 100 Weight 61.49 kg Intake: IV 100 100 100 Flagyl 500 mg In Premix 1 Bag @ 100 100 100 100 mls/hr IV Q8H [facility] Rx#: [id number] Oral 240 Output: Urine Catheter Amount 350 550 Other: Meal Dinner Percent of Meal Consumed 50% Feeding Ability Independent Urine Appearance Clear Clear Urine Color Dark Yellow Bright Yellow Urine Odor Strong Stool Size Small Moderate Stool Color Black Brown Black Stool Consistency Liquid Watery # Bowel Movements 1 1 Exam: General: Alert, Awake, No acute Distress Eyes/N/T: EOMI, Head/Neck: neck supple, CV: RRR, 2/6 SM Pulm: Clear b/l, no wheezing/rhonchi/rales Abd: soft, nontender, +BS x4, large wound in right groin, packed Ext: no clubbing/cyanosis/edema Neuro: Alert, no focal deficits, moves all extremities, Skin: warm/dry OBJ DATA Labs CBC & Chem 7: 01/10/22 05:59 01/10/22 05:59 Labs: Abnormal Lab Results 01/10/22 01/10/22 01/09/22 05:59 05:59 05:35 WBC 26.4 H Seg Neutrophils % Lymphocytes % Potassium Carbon Dioxide Creatinine 0.4 L Glucose 132 H Uric Acid 2.0 L Calcium 8.1 L Phosphorus 2.1 L TIBC GGT 77 H Alkaline Phosphatase Lactate Dehydrogenase C-Reactive Protein Total Protein 5.5 L Albumin 2.2 L Albumin/Globulin Ratio 0.7 L Triglycerides Procalcitonin 0.26 H 01/09/22 01/09/22 01/08/22 05:35 05:35 05:05 WBC 25.7 H Seg Neutrophils % 86 H Lymphocytes % 4 L Potassium 3.0 L Carbon Dioxide Creatinine 0.4 L Glucose 150 H Uric Acid 1.8 L Calcium 7.5 L Phosphorus 2.1 L TIBC 157 L GGT 80 H Alkaline Phosphatase Lactate Dehydrogenase C-Reactive Protein Total Protein 5.1 L Albumin 2.0 L Albumin/Globulin Ratio 0.6 L Triglycerides Procalcitonin 01/08/22 01/08/22 01/08/22 05:05 05:05 05:05 WBC 29.2 H Seg Neutrophils % 86 H Lymphocytes % 8 L Potassium Carbon Dioxide 20 L Creatinine 0.4 L Glucose 163 H Uric Acid 1.4 L Calcium 7.4 L Phosphorus 1.8 L TIBC GGT 86 H Alkaline Phosphatase 127 H Lactate Dehydrogenase 239 H C-Reactive Protein Total Protein 4.8 L Albumin 1.9 L Albumin/Globulin Ratio 0.7 L Triglycerides Procalcitonin 0.34 H 01/07/22 01/07/22 05:29 05:29 WBC Seg Neutrophils % Lymphocytes % Potassium 3.1 L Carbon Dioxide 17 L Creatinine 0.4 L Glucose 230 H Uric Acid 1.3 L Calcium 7.1 L Phosphorus 1.9 L TIBC GGT 112 H Alkaline Phosphatase 135 H Lactate Dehydrogenase C-Reactive Protein 1.90 H Total Protein 5.4 L Albumin 2.2 L Albumin/Globulin Ratio 0.7 L Triglycerides 172 H Procalcitonin 0.23 H Meds: Medications Acetaminophen (Acetaminophen 325 Mg Tablet) 650 mg PO Q4-6HP PRN; Protocol PRN Reason: Per Pain Protocol/Fever > 101 Albuterol/Ipratropium (Ipratropium/Albuterol 3 Ml Ampul.Neb) 3 ml NEB Q4HRT PRN PRN Reason: Wheezing Calcium Carbonate/Glycine (Calcium Carbonate 500 Mg Tab.Chew) 500 mg CHEWED Q4HP PRN PRN Reason: Dyspepsia Last Admin: 01/07/22 13:39 Dose: 500 mg Documented by: Dextrose (Dextrose 50% 50 Ml Vial) 0 ml IV UD PRN PRN Reason: Hypoglycemia Diagnostic Test (Pha) (Accu-Chek 1 Each Strip) 1 each FS ACHS [facility] Last Admin: 01/09/22 21:25 Dose: 1 each Documented by: Docusate Sodium (Docusate Sodium 100 Mg Capsule) 100 mg PO BID [facility] Last Admin: 01/10/22 07:23 Dose: Not Given Documented by: Glucose (Dextrose 31 Gm Oral.Susp) 15 gm PO PRN PRN PRN Reason: Hypoglycemia Hydromorphone HCl (Hydromorphone 0.5 Mg/0.5 Ml Syringe) 0.5 mg IV Q2HP PRN; Protocol PRN Reason: Per Pain Protocol Last Admin: 01/09/22 10:45 Dose: 0.5 mg Documented by: Acetaminophen (Ofirmev) 650 mg in 65 mls @ 130 mls/hr IV Q6HP PRN; Protocol PRN Reason: PAIN/FEVER > 101 Last Infusion: 01/06/22 23:30 Dose: Infused Documented by: Ceftriaxone Sodium 2 gm/ (Dextrose) 50 mls @ 100 mls/hr IV Q24H [facility]; Protocol Last Infusion: 01/09/22 11:04 Dose: Infused Documented by: Metronidazole 500 mg/ Premix 100 mls @ 100 mls/hr IV Q8H [facility]; Protocol Last Infusion: 01/10/22 06:30 Dose: Infused Documented by: Insulin Glargine (Insulin Glargine, Human 1 Unit/0.01 Ml) 30 unit SQ DAILY [facility] Last Admin: 01/09/22 10:03 Dose: 30 units Documented by: Insulin Human Lispro (Insulin Lispro 1 Unit/0.01 Ml Unit) 0 unit SQ [facility]; Protocol Last Admin: 01/09/22 21:25 Dose: 3 units Documented by: Insulin Human Lispro (Insulin Lispro 1 Unit/0.01 Ml Unit) 5 unit SQ [facility] Last Admin: 01/10/22 07:22 Dose: Not Given Documented by: Labetalol HCl (Labetalol 5 Mg/Ml Ml) 10 mg IV Q10M PRN PRN Reason: Blood Pressure - High Lisinopril (Lisinopril 5 Mg Tablet) 10 mg PO DAILY [facility] Last Admin: 01/09/22 10:02 Dose: 10 mg Documented by: Metoclopramide HCl (Metoclopramide 10 Mg/2 Ml Vial) 10 mg IV Q6HP PRN PRN Reason: Nausea And Vomiting Last Admin: 01/06/22 09:05 Dose: 10 mg Documented by: Ondansetron HCl (Ondansetron 4 Mg/2 Ml Vial) 4 mg IV Q4-6HP PRN; Protocol PRN Reason: Nausea And Vomiting Last Admin: 01/06/22 19:01 Dose: 4 mg Documented by: Oxycodone/Acetaminophen (Oxycodone/Apap 10/325mg Tablet) 1 tab PO Q4-6HP PRN; Protocol PRN Reason: Per Pain Protocol Last Admin: 01/09/22 17:02 Dose: 1 tab Documented by: Pantoprazole Sodium (Pantoprazole 40 Mg Packet) 40 mg PO BIDAC [facility] Last Admin: 01/09/22 17:02 Dose: 40 mg Documented by: Senna (Sennosides 8.8 Mg/5 Ml Ml) 8.8 mg PT DAILY PRN PRN Reason: Constipation Sodium Chloride (0.9 % Sodium Chloride 10 Ml Syringe) 10 ml IV Q8 [facility] Last Admin: 01/10/22 05:31 Dose: 10 ml Documented by: Sucralfate (Sucralfate 1 Gm/10 Ml Oral.Susp) 1 gm PO [facility] Last Admin: 01/09/22 21:25 Dose: 1 gm Documented by: ABG Interpretation ABG results: 01/05/22 01/05/22 01/05/22 16:06 20:05 23:51 ABG Methemoglobin 0.1 L 0 L 0 L VBG pH 7.18 L* 7.31 L 7.33 VBG pCO2 37.9 L 27.6 L 23.8 L VBG pO2 55.4 H 67.9 H 87.1 H VBG HCO3 13.9 L 13.7 L 12.4 L VBG Total CO2 15.1 L 14.6 L 13.1 L VBG O2 Saturation 80.4 H 88.4 H 94.5 H VBG Base Excess -14 L -11 L -12 L 01/06/22 04:07 ABG Methemoglobin 0.1 L VBG pH 7.30 L VBG pCO2 30.9 L VBG pO2 46.7 H VBG HCO3 14.9 L VBG Total CO2 15.8 L VBG O2 Saturation 79.8 H VBG Base Excess -10 L A/P Narrative A/P Narrative: 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 Stable -peripheral blood smear was negative for dysplastic changes or blasts #Hypokalemia/phos: Improved #Diabetes mellitus (new diagnosis): -hgb A1C was 10.4 #DKA: Resolved #Hypertension: previously untreated #Generalized weakness Plan -IV Ceftriaxone/Metronidazole to PO Amoxacillin/flagyl -cont oral Protonix BID, Sucralfate QID. f/u with with surgery/GI for EGD 4-6 weeks -Lantus 30 qHS, Humalog 5 AC, SSI -Continue Lisinopril -General surgery following, planning for wound VAC today. -mcpherson catheter per surgery, leave in place until wound more matured and co ntrolled -Disposition: Will depend on functional status and wound care needs at discharge, anticipate discharge on oral antibiotics. Will probably need a basal/bolus insulin regimen in the near term for optimal management of diabetes mellitus which is a new diagnosis. -PPx: SCD (Heparin held d/t suspected GI bleed from esophagitis/duodenitis) / ppi CODE STATUS: DNR/DNI Time Spent With Patient Time: Total time spent is greater than 50% in coordination of care (as documented) at patient's floor/unit and/or counseling patient: QUALITY VTE Deep Vein Thrombosis/Pulmonary Embolism Present on Admission: No
[2022-01-10] MEDS: LISINOPRIL 5 MG TABLET PO SCH (08:44)
[2022-01-10] MEDS: NEUTRA PHOS 1 PACKET PO SCH ×2 (08:44→20:47)
[2022-01-10] MEDS: PHOSPHORUS 250 MG TABLET PO SCH ×2 (08:44→20:47)
[2022-01-10] MEDS: INSULIN GLARGINE, HUMAN 1 UNIT/0.01 ML SQ SCH (08:45)
[2022-01-10] MEDS: cefTRIAXone 2 GM in DEXTROSE 5% IN WATER 50 ML IV SCH (08:45)
[2022-01-10 10:45] LABS: Band Neutrophils % 2 % (0-10); Lymphocytes % 11 % (15-49); Monocytes % (Manual) 2 % (1-12); Platelet Estimate NORMAL (Normal); Polychromasia FEW (None Seen); RBC Morphology ABNORMAL (Normal); Reactive Lymphocytes 1 % (0-2); Segmented Neutrophils % 84 % (38-78)
--- NOTE | 2022-01-10 11:53 | Discharge Summary ---
Discharge Provider Provider Patient information: Note initiated : 01/10/22 at 11:49 am Service Date, if different from initiated Date: [] Patient: Amber Navarro 66 y/o F admitted on 01/05/22 for Nausea/Vomiting, Elevated Blood Glucose. Chief Complaint: [] Date of admission: 01/05/22 15:50 Discharge date: 01/12/22 Primary care physician: PCP No Consults: 01/05/22 Consult to Physician [CONS] Stat Comment: Consulting Provider: Tae Langford Reason For Exam: Physician to Consult Consult to Physician [CONS] Stat Comment: Consulting Provider: Trey Delaney Reason For Exam: Physician to Consult 01/05/22 15:50 Consult to Physician [CONS] Stat Comment: Consulting Provider: Trey Delaney Reason For Exam: Physician to Consult 01/08/22 14:02 Consult to Physician [CONS] Routine Comment: Consulting Provider: Chip Romo Reason For Exam: Physician to Consult Discharge Meds Discharge Medications Home Medications amoxicillin 500 mg tablet 500 mg PO Q8H #12 tab 01/10/22 [Rx Last Taken Unknown] blood sugar diagnostic #100 each 01/10/22 [Rx Last Taken Unknown] blood-glucose meter #1 each 01/10/22 [Rx Last Taken Unknown] insulin aspart U-100 100 unit/mL (3 mL) subcutaneous pen (Novolog Flexpen U-100 Insulin aspart) See Protocol SUBCUT ACHS #3 ml MDD 40 01/10/22 [Rx Last Taken Unknown] insulin glargine 100 unit/mL (3 mL) subcutaneous pen (Lantus Solostar U-100 Insulin) 30 unit (0.3 mL) SUB-Q QDAY #15 ml 01/10/22 [Rx Last Taken Unknown] lancets #100 each 01/10/22 [Rx Last Taken Unknown] lisinopril 5 mg tablet 10 mg PO DAILY #30 tab 01/10/22 [Rx Last Taken Unknown] metronidazole 500 mg tablet 500 mg PO Q8H #12 tab 01/10/22 [Rx Last Taken Unknown] pantoprazole 40 mg granules delayed-release for susp in packet 40 mg PO BIDAC #90 ea 01/10/22 [Rx Last Taken Unknown] COURSE Hospital Course Hospital course: Principal diagnosis: Left groin pain Interval history: Ms. Navarro is a 66 year old female with no known past medical history, presenting with general body weakness and left groin pain for 2 weeks.The patient did not recall any trauma or injury to her groin but she does shave herself. There was no prior similar episode. About 2 weeks ago she started to notice pain and swelling of her left groin around her labia majora, and it burst open spontaneously about 4 days ago. It is associated with severe aching constant pain of her entire left groin with radiation to the surrounding body regions. She is also complaining of general body weakness, decreased appetite, fever and chills. She presented to our ED due to worsening of her symptoms. Labs significant for severe leukocytosis with WBC 30.2. Initial serum potassium level 2.7, initial POC glucose 685. BUN and creatinine 38 and 0.5, respectively suggesting degree of dehydration as well. Serum bicarb of 12 and anion gap of 17. Beta hydroxybutyrate also elevated. Serum lactic acid 1.7. Pelvic CT showing 10 cm region of extensive gas and phlegmonous inflammation in the subcutaneous fat of the left lower anterior pelvic wall with extension into the left lateral perivalvular regions. Findings suggestive of Stacy's gangrene. 01/06: s/p wound debridement by Dr. Delaney yesterday. Blood and wound cultures no growth to date. afebrile overnight. Continue Vancomycin and Zosyn. Anion gas has been closed this morning with blood glucose 149-->will transition from insulin drip to SQ insulin therapy. Patient is c/o mild left groin pain, denies any fever or chills or sweating. 01/07 WBC trending up but afebrile and stable. Procalcitonin trending down. Blood pressure high today, patient able to take oral meds so increased Lisinopril to 10 mg daily. Replaced potassium and phosphorus. Increased Lantus to 30 units HS and added Humalog [address] chest/abdomen/pelvis with contrast to evaluate for other infectious process causing increase in WBC. 01/08 CT scan showed findings consistent with severe duodenitis and gastritis. Started Protonix infusion and Sucralfate, general surgery declined EGD at this time. Stool H Pylori pending. Surgical cultures grew streptococcus anginosus so far, anaerobic results pending. Deescalated antibiotics to Ceftriaxone and Flagyl IV. The patient may need a wound VAC for wound cares. 01/09 The patient feels better today, surgical culture now also grew multiple Prevotella species, WBC trending down now. Peripheral blood smear was not concerning for an underlying hematologic malignancy. Held heparin SQ for DVT prophylaxis due to multiple dark stools. H pyloric stool antigen was negative. Transitioned to oral Protonix BID. Continue Ceftriaxone and Metronidazole IV for now, awaiting final culture results. Surgery planning for wound VAC. Transfer to med/surg. 01/10 Slept well and feeling much better. Getting wound VAC today. System leukocytosis but patient is afebrile and does not appear toxic. 01/11 Patient feeling well. Potassium within normal limits. Awaiting wound VAC and discharge coordination in order to discharge home with home health. 01/12 Doing well. Awaiting placement. 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 Stable -peripheral blood smear was negative for dysplastic changes or blasts #Hypokalemia/phos: Improved #Diabetes mellitus (new diagnosis): -hgb A1C was 10.4 #DKA: Resolved #Hypertension: previously untreated #Generalized weakness Plan -PO Amoxacillin/flagyl -cont oral Protonix BID, Sucralfate QID. f/u with with surgery/GI for EGD 4-6 weeks -Lantus 30 qHS, SSI -cont Lisinopril -wound vac per General surgery -mcpherson catheter per surgery > leave in place until wound more matured and controlled Discharge diagnosis: Stacy's gangrene sepsis duodenitis esophagitis gastritis Secondary discharge diagnosis: Leukocytosis electrolyte imbalance diabetes new diagnosis DKA hypertension Time Spent with Patient Time attestation: Total time spent providing and/or coordinating discharge services: Time spent: Greater than 30 minutes EXAM Constitutional Vitals: Temp Pulse Resp BP Pulse Ox 98.6 F 78 18 136/74 98 01/10/22 08:00 01/10/22 08:00 01/10/22 08:00 01/10/22 08:00 01/10/22 08:00 Discharge Data Data Completed and Pending Labs on day of discharge: Labs from last 24 hours 01/10/22 01/10/22 05:59 05:59 WBC 26.4 H RBC 4.45 Hgb 12.4 Hct 36.4 MCV 81.8 MCH 27.9 MCHC 34.1 RDW 13.1 Plt Count 304 MPV 9.9 Seg Neutrophils % 84 H Band Neutrophils % 2 Lymphocytes % 11 L Monocytes % (Manual) 2 Reactive Lymphocytes 1 Platelet Estimate Normal RBC Morphology Abnormal A Polychromasia Few A Sodium 136 Potassium 3.5 Chloride 101 Carbon Dioxide 26 Anion Gap 9.0 BUN 15 Creatinine 0.4 L GFR Calculation 107 Glucose 132 H Uric Acid 2.0 L Calcium 8.1 L Phosphorus 2.1 L Magnesium 1.7 Total Bilirubin 0.2 Direct Bilirubin < 0.2 GGT 77 H AST 10 ALT 8 Alkaline Phosphatase 116 Lactate Dehydrogenase 184 Total Protein 5.5 L Albumin 2.2 L Globulin 3.3 Albumin/Globulin Ratio 0.7 L Triglycerides 88 Preliminary micro results at discharge 01/05/22 15:17 Gram Stain - Preliminary Labia - Left Anaerobic Culture - Preliminary Prevotella bivia Prevotella species Prevotella species#2 01/05/22 15:18 Gram Stain - Preliminary Labia - Left Anaerobic Culture - Preliminary Prevotella species Prevotella bivia Discharge Plan Patient/Caregiver Discharge Instructions Activity: increase activity as tolerated Diet: Consistent Carbohydrate Activity Restrictions/Additional Instructions: Follow-up with PCP in 3 to 7 days. Follow-up with Dr. Delaney for EGD or GI if he does not perform endoscopy. Monitor blood glucose before breakfast lunch and dinner and at bedtime and bring log to PCP. Prescriptions: New amoxicillin 500 mg tablet 500 mg PO Q8H Qty: 12 0RF metronidazole 500 mg tablet 500 mg PO Q8H Qty: 12 0RF pantoprazole [address] Gomez Susp In Packet 40 mg PO BIDAC Qty: 90 0RF Rx Instructions: 30 twice a day until February 04 and then once daily thereafter. lisinopril 5 mg Tablet 10 mg PO DAILY Qty: 30 0RF (DME) blood sugar diagnostic Strip See Rx Instructions .ROUTE .MEDSUPPLY Qty: 100 0RF Rx Instructions: As directed (DME) lancets Misc See Rx Instructions .ROUTE .MEDSUPPLY Qty: 100 0RF Rx Instructions: As directed (DME) blood-glucose meter Kit See Rx Instructions .ROUTE .MEDSUPPLY Qty: 1 0RF Rx Instructions: As directed insulin aspart U-100 [Novolog Flexpen U-100 Insulin] 100 unit/mL (3 mL) insulin pen See Protocol unit subcut ACHS MDD 40 Qty: 3 0RF Protocol: Insulin Sliding Scale, Med Condition: HUMALOG/NOVALOG SC SLIDING Dose/Route: SCALE Condition: FSBS < 70 Dose/Route: Give 4 Oz juice, or 15gm oral Instruction: Glucose, or 25ml D50W IV if Dose/Route: unable to take PO. Recheck in Instruction: 15 min and repeat if FSBS < 70 Condition: FSBS 71-140 Dose/Route: NO COVERAGE Condition: FSBS 141-170 Dose/Route: 2 UNITS Condition: FSBS 171-200 Dose/Route: 4 UNITS Condition: FSBS 201-250 Dose/Route: 6 UNITS Condition: FSBS 251-300 Dose/Route: 8 UNITS Condition: FSBS 301-350 Dose/Route: 10 UNITS Condition: FSBS 351-400 Dose/Route: 12 UNITS Condition: FSBS > 400 Dose/Route: 14 UNITS; REPEAT Q2H X2 Instruction: CONTINUE FOLLOWING SLIDING Condition: SCALE; IF STILL > 400; CALL Dose/Route: PHYSICIAN Berenice Diazostar U-100 Insulin 100 unit/mL (3 mL) insulin pen 30 unit SUB-Q QDAY Qty: 15 0RF Other Ambulatory Orders: Wound Care Instructions (CONT) Location: None Selected Ordered By: Trey Delaney Primary Care Provider - Referral (NOW) Timeframe: [id number] Location: None Selected Ordered By: Deniz Payton Follow Up Plan Follow up with: Trey Delaney MD [Physician] - Patient Disposition: Home Health Service Prognosis: Fair Overall status at discharge: patient is progressing back to baseline Discharge Orders: Discharge Order (Routine); Ordered 01/12/22 Ordered By: Deniz Payton QUALITY VTE Deep Vein Thrombosis/Pulmonary Embolism Present on Admission: No
[2022-01-10] MEDS: HYDROmorphone 0.5 MG/0.5 ML SYRINGE IV PRN (13:37)
--- NOTE | 2022-01-10 15:53 | General Surgery Progress Note ---
SUBJECTIVE Subjective Patient information: Note initiated : 01/10/22 at 3:49 pm Service Date, if different from initiated Date: [] Patient: Amber Navarro 66 y/o F admitted on 01/05/22 for Nausea/Vomiting, Elevated Blood Glucose. Chief Complaint: [POD #5 Debridement and Washout Stacy's Gangrene] Looks and feels great this am, doing well, feels dramatically improved, VAC in place Principal diagnosis: Left groin pain Constitutional Vitals: Vital Signs Temp Pulse Resp BP Pulse Ox 97.5 F 88 17 130/50 96 01/10/22 11:49 01/10/22 11:49 01/10/22 11:49 01/10/22 11:49 01/10/22 11:49 Period Temp Pulse Resp BP Sys/Sherwood Pulse Ox Last 24 Hr 97.3 F-98.6 F 78-88 16-18 130-138/50-74 96-100 Intake and Output 01/10/22 01/10/22 01/10/22 05:59 13:59 21:59 Intake Total 100 430 100 Output Total 550 Balance -450 430 100 Intake & Output: Intake & Output 01/10/22 01/10/22 01/10/22 05:59 13:59 21:59 Intake Total 100 430 100 Output Total 550 Balance -450 430 100 Intake: Nourishment/Supplement quantity 240 (ml) IV 100 150 100 Rocephin 2 gm In Dextrose 5% in 50 Water 50 ml @ 100 mls/hr IV Q24H [facility] Rx#:[id number] Flagyl 500 mg In Premix 1 Bag @ 100 100 100 100 mls/hr IV Q8H [facility] Rx#: [id number] Oral 40 Output: Urine Catheter Amount 550 Other: Meal Breakfast Percent of Meal Consumed 50% Feeding Ability Independent Nourishment/Supplement name Deven Urine Appearance Clear Urine Color Bright Yellow Stool Size Moderate Stool Color Brown Black Stool Consistency Watery # Bowel Movements 1 General appearance: cooperative and no acute distress Exam: Looks well, fully conversant Additional comments: VAC in place at Left Groin Wound 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
[2022-01-11] MEDS: 0.9 % SODIUM CHLORIDE 10 ML SYRINGE IV SCH ×3 (06:24→21:50)
[2022-01-11] MEDS: metroNIDAZOLE 500 MG in PREMIX 1 BAG IV SCH (06:24)
[2022-01-11 06:48] LABS: Hematocrit 34.8 % (34.1-44.9); Hemoglobin 11.7 g/dL (11.2-15.7); Mean Cell Volume 82.1 fL (80.0-100.0); Mean Corpuscular HGB Conc 33.6 g/dL (31.0-36.0); Mean Platelet Volume 9.8 fL (7.4-10.4); Platelet Count 350 K/mcL (140-440); RBC 4.24 M/mcL (3.59-5.38); Red Cell Distribution Width 12.8 % (11.5-14.5); WBC 22.8 K/mcL (4.5-11.0)
[2022-01-11] MEDS: PANTOPRAZOLE 40 MG PACKET PO SCH ×2 (07:04→17:31)
[2022-01-11] MEDS: SUCRALFATE 1 GM/10 ML ORAL.SUSP PO SCH ×4 (07:04→21:50)
[2022-01-11] MEDS: oxyCODONE/APAP 10/325MG TABLET PO PRN ×2 (07:24→15:33)
[2022-01-11] MEDS: DOCUSATE SODIUM 100 MG CAPSULE PO SCH ×2 (09:12→21:45)
[2022-01-11] MEDS: LISINOPRIL 5 MG TABLET PO SCH (09:12)
[2022-01-11] MEDS ORDERED: PHOSPHORUS 250 MG TABLET PO ONE (09:13)
[2022-01-11] MEDS ORDERED: NEUTRA PHOS 1 PACKET PO ONE (09:13)
[2022-01-11] MEDS: INSULIN LISPRO 1 UNIT/0.01 ML UNIT SQ SCH ×7 (09:13→21:45)
[2022-01-11] MEDS: INSULIN GLARGINE, HUMAN 1 UNIT/0.01 ML SQ SCH (09:14)
--- NOTE | 2022-01-11 09:14 | Internal Med Progress Note ---
SUBJECTIVE Subjective Patient information: Note initiated : 01/11/22 at 9:13 am Service Date, if different from initiated Date: [] Patient: Amber Navarro 66 y/o F admitted on 01/05/22 for Nausea/Vomiting, Elevated Blood Glucose. Chief Complaint: [] Principal diagnosis: Left groin pain Interval history: Ms. Navarro is a 66 year old female with no known past medical history, presenting with general body weakness and left groin pain for 2 weeks.The patient did not recall any trauma or injury to her groin but she does shave herself. There was no prior similar episode. About 2 weeks ago she started to notice pain and swelling of her left groin around her labia majora, and it burst open spontaneously about 4 days ago. It is associated with severe aching constant pain of her entire left groin with radiation to the surrounding body regions. She is also complaining of general body weakness, decreased appetite, fever and chills. She presented to our ED due to worsening of her symptoms. Labs significant for severe leukocytosis with WBC 30.2. Initial serum potassium level 2.7, initial POC glucose 685. BUN and creatinine 38 and 0.5, respectively suggesting degree of dehydration as well. Serum bicarb of 12 and anion gap of 17. Beta hydroxybutyrate also elevated. Serum lactic acid 1.7. Pelvic CT showing 10 cm region of extensive gas and phlegmonous inflammation in the subcutaneous fat of the left lower anterior pelvic wall with extension into the left lateral perivalvular regions. Findings suggestive of Stacy's gangrene. 01/06: s/p wound debridement by Dr. Delaney yesterday. Blood and wound cultures no growth to date. afebrile overnight. Continue Vancomycin and Zosyn. Anion gas has been closed this morning with blood glucose 149-->will transition from insulin drip to SQ insulin therapy. Patient is c/o mild left groin pain, denies any fever or chills or sweating. 01/07 WBC trending up but afebrile and stable. Procalcitonin trending down. Blood pressure high today, patient able to take oral meds so increased Lisinopril to 10 mg daily. Replaced potassium and phosphorus. Increased Lantus to 30 units HS and added Humalog [address] chest/abdomen/pelvis with contrast to evaluate for other infectious process causing increase in WBC. 01/08 CT scan showed findings consistent with severe duodenitis and gastritis. Started Protonix infusion and Sucralfate, general surgery declined EGD at this time. Stool H Pylori pending. Surgical cultures grew streptococcus anginosus so far, anaerobic results pending. Deescalated antibiotics to Ceftriaxone and Flagyl IV. The patient may need a wound VAC for wound cares. 01/09 The patient feels better today, surgical culture now also grew multiple Prevotella species, WBC trending down now. Peripheral blood smear was not concerning for an underlying hematologic malignancy. Held heparin SQ for DVT prophylaxis due to multiple dark stools. H pyloric stool antigen was negative. Transitioned to oral Protonix BID. Continue Ceftriaxone and Metronidazole IV for now, awaiting final culture results. Surgery planning for wound VAC. Transfer to med/surg. 01/10 Slept well and feeling much better. Getting wound VAC today. System leukocytosis but patient is afebrile and does not appear toxic. 01/11 Patient feeling well. Potassium within normal limits. Awaiting wound VAC and discharge coordination in order to discharge home with home health. Review of Systems: denies headache/fever/chills/nausea/vomiting/chest or abdominal pain/cough/dyspnea. Otherwise see above. Constitutional Vitals: Vital Signs Temp Pulse Resp BP Pulse Ox 96.3 F L 77 16 140/69 98 01/11/22 08:00 01/11/22 08:00 01/11/22 08:00 01/11/22 08:00 01/11/22 08:00 Period Temp Pulse Resp BP Sys/Sherwood Pulse Ox Last 24 Hr 96.3 F-98.6 F 77-89 6-19 130-161/50-74 95-98 Intake and Output 01/10/22 01/11/22 01/11/22 21:59 05:59 13:59 Intake Total 100 700 100 Output Total 1075 Balance 100 -375 100 Weight 61.377 kg Intake & Output: Intake & Output 01/10/22 01/11/22 01/11/22 21:59 05:59 13:59 Intake Total 100 700 100 Output Total 1075 Balance 100 -375 100 Weight 61.377 kg Intake: IV 100 100 100 Flagyl 500 mg In Premix 1 Bag @ 100 100 100 100 mls/hr IV Q8H [facility] Rx#: [id number] Oral 600 Output: Urine Catheter Amount 1075 Other: Meal Dinner Percent of Meal Consumed 50% Urine Appearance Clear Cloudy Urine Color Bright Yellow Bright Yellow Stool Size Moderate Moderate Stool Color Brown Brown Stool Consistency Soft Liquid # Bowel Movements 1 1 Exam: General: Alert, Awake, No acute Distress Eyes/N/T: EOMI, Head/Neck: neck supple, CV: RRR, 2/6 SM Pulm: Clear b/l, no wheezing/rhonchi/rales Abd: soft, nontender, +BS x4, large wound in right groin, packed Ext: no clubbing/cyanosis/edema Neuro: Alert, no focal deficits, moves all extremities, Skin: warm/dry OBJ DATA Labs CBC & Chem 7: 01/11/22 05:35 01/10/22 05:59 Labs: Abnormal Lab Results 01/11/22 01/10/22 01/10/22 05:35 05:59 05:59 WBC 22.8 H 26.4 H Seg Neutrophils % 84 H Lymphocytes % 11 L RBC Morphology Abnormal A Polychromasia Few A Potassium Creatinine 0.4 L Glucose 132 H Uric Acid 2.0 L Calcium 8.1 L Phosphorus 2.1 L GGT 77 H Total Protein 5.5 L Albumin 2.2 L Albumin/Globulin Ratio 0.7 L Procalcitonin 01/09/22 01/09/22 01/09/22 05:35 05:35 05:35 WBC 25.7 H Seg Neutrophils % 86 H Lymphocytes % 4 L RBC Morphology Polychromasia Potassium 3.0 L Creatinine 0.4 L Glucose 150 H Uric Acid 1.8 L Calcium 7.5 L Phosphorus 2.1 L GGT 80 H Total Protein 5.1 L Albumin 2.0 L Albumin/Globulin Ratio 0.6 L Procalcitonin 0.26 H Meds: Medications Acetaminophen (Acetaminophen 325 Mg Tablet) 650 mg PO Q4-6HP PRN; Protocol PRN Reason: Per Pain Protocol/Fever > 101 Albuterol/Ipratropium (Ipratropium/Albuterol 3 Ml Ampul.Neb) 3 ml NEB Q4HRT PRN PRN Reason: Wheezing Calcium Carbonate/Glycine (Calcium Carbonate 500 Mg Tab.Chew) 500 mg CHEWED Q4HP PRN PRN Reason: Dyspepsia Last Admin: 01/07/22 13:39 Dose: 500 mg Documented by: Dextrose (Dextrose 50% 50 Ml Vial) 0 ml IV UD PRN PRN Reason: Hypoglycemia Diagnostic Test (Pha) (Accu-Chek 1 Each Strip) 1 each FS [facility] Last Admin: 01/10/22 20:54 Dose: 1 each Documented by: Docusate Sodium (Docusate Sodium 100 Mg Capsule) 100 mg PO BID [facility] Last Admin: 01/10/22 20:47 Dose: Not Given Documented by: Glucose (Dextrose 31 Gm Oral.Susp) 15 gm PO PRN PRN PRN Reason: Hypoglycemia Hydromorphone HCl (Hydromorphone 0.5 Mg/0.5 Ml Syringe) 0.5 mg IV Q2HP PRN; Protocol PRN Reason: Per Pain Protocol Last Admin: 01/10/22 13:37 Dose: 0.5 mg Documented by: Acetaminophen (Ofirm) 650 mg in 65 mls @ 130 mls/hr IV Q6HP PRN; Protocol PRN Reason: PAIN/FEVER > 101 Last Infusion: 01/06/22 23:30 Dose: Infused Documented by: Metronidazole 500 mg/ Premix 100 mls @ 100 mls/hr IV Q8H [facility]; Protocol Last Infusion: 01/11/22 07:24 Dose: Infused Documented by: Insulin Glargine (Insulin Glargine, Human 1 Unit/0.01 Ml) 30 unit SQ DAILY [facility] Last Admin: 01/10/22 08:45 Dose: 30 units Documented by: Insulin Human Lispro (Insulin Lispro 1 Unit/0.01 Ml Unit) 5 unit SQ [facility] Last Admin: 01/10/22 17:11 Dose: Not Given Documented by: Insulin Human Lispro (Insulin Lispro 1 Unit/0.01 Ml Unit) 0 unit SQ [facility]; Protocol Last Admin: 01/10/22 20:53 Dose: 6 units Documented by: Labetalol HCl (Labetalol 5 Mg/Ml Ml) 10 mg IV Q10M PRN PRN Reason: Blood Pressure - High Lisinopril (Lisinopril 5 Mg Tablet) 10 mg PO DAILY [facility] Last Admin: 01/10/22 08:44 Dose: 10 mg Documented by: Metoclopramide HCl (Metoclopramide 10 Mg/2 Ml Vial) 10 mg IV Q6HP PRN PRN Reason: Nausea And Vomiting Last Admin: 01/06/22 09:05 Dose: 10 mg Documented by: Ondansetron HCl (Ondansetron 4 Mg/2 Ml Vial) 4 mg IV Q4-6HP PRN; Protocol PRN Reason: Nausea And Vomiting Last Admin: 01/06/22 19:01 Dose: 4 mg Documented by: Oxycodone/Acetaminophen (Oxycodone/Apap 10/325mg Tablet) 1 tab PO Q4-6HP PRN; P rotocol PRN Reason: Per Pain Protocol Last Admin: 01/11/22 07:24 Dose: 1 tab Documented by: Pantoprazole Sodium (Pantoprazole 40 Mg Packet) 40 mg PO BIDAC KERRI Last Admin: 01/11/22 07:04 Dose: 40 mg Documented by: Senna (Sennosides 8.8 Mg/5 Ml Ml) 8.8 mg PT DAILY PRN PRN Reason: Constipation Sodium Chloride (0.9 % Sodium Chloride 10 Ml Syringe) 10 ml IV Q8 [facility] Last Admin: 01/11/22 06:24 Dose: 10 ml Documented by: Sucralfate (Sucralfate 1 Gm/10 Ml Oral.Susp) 1 gm PO ACHS [facility] Last Admin: 01/11/22 07:04 Dose: 1 gm Documented by: ABG Interpretation ABG results: 01/05/22 01/05/22 01/05/22 16:06 20:05 23:51 ABG Methemoglobin 0.1 L 0 L 0 L VBG pH 7.18 L* 7.31 L 7.33 VBG pCO2 37.9 L 27.6 L 23.8 L VBG pO2 55.4 H 67.9 H 87.1 H VBG HCO3 13.9 L 13.7 L 12.4 L VBG Total CO2 15.1 L 14.6 L 13.1 L VBG O2 Saturation 80.4 H 88.4 H 94.5 H VBG Base Excess -14 L -11 L -12 L 01/06/22 04:07 ABG Methemoglobin 0.1 L VBG pH 7.30 L VBG pCO2 30.9 L VBG pO2 46.7 H VBG HCO3 14.9 L VBG Total CO2 15.8 L VBG O2 Saturation 79.8 H VBG Base Excess -10 L A/P Narrative A/P Narrative: 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 Stable -peripheral blood smear was negative for dysplastic changes or blasts #Hypokalemia/phos: Improved #Diabetes mellitus (new diagnosis): -hgb A1C was 10.4 #DKA: Resolved #Hypertension: previously untreated #Generalized weakness Plan -IV Ceftriaxone/Metronidazole to PO Amoxacillin/flagyl -cont oral Protonix BID, Sucralfate QID. f/u with with surgery/GI for EGD 4-6 weeks -Lantus 30 qHS, Humalog 5 AC, SSI -Continue Lisinopril -General surgery following, planning for wound VAC today. -mcpherson catheter per surgery, leave in place until wound more matured and contro lled -Disposition: Will depend on functional status and wound care needs at discharge, anticipate discharge on oral antibiotics. Will probably need a basal/bolus insulin regimen in the near term for optimal management of diabetes mellitus which is a new diagnosis. -PPx: SCD (Heparin held d/t suspected GI bleed from esophagitis/duodenitis) / ppi CODE STATUS: DNR/DNI Time Spent With Patient Time: Total time spent is greater than 50% in coordination of care (as documented) at patient's floor/unit and/or counseling patient: QUALITY VTE Deep Vein Thrombosis/Pulmonary Embolism Present on Admission: No
[2022-01-11] MEDS ORDERED: cefTRIAXone 2 GM in DEXTROSE 5% IN WATER 50 ML IV SCH (10:00)
[2022-01-11 10:02] LABS: Eosinophils % (Manual) 1 % (0-7); Lymphocytes % 16 % (15-49); Monocytes % (Manual) 8 % (1-12); Platelet Estimate NORMAL (Normal); RBC Morphology NORMAL (Normal); Reactive Lymphocytes 1 % (0-2); Segmented Neutrophils % 74 % (38-78)
[2022-01-11] MEDS: cefTRIAXone 2 GM in DEXTROSE 5% IN WATER 50 ML IV SCH (10:34)
[2022-01-11] MEDS: metroNIDAZOLE 500 MG TABLET PO SCH ×2 (14:42→21:50)
--- NOTE | 2022-01-11 15:52 | General Surgery Progress Note ---
SUBJECTIVE Subjective Patient information: Note initiated : 01/11/22 at 3:47 pm Service Date, if different from initiated Date: [] Patient: Amber Navarro 66 y/o F admitted on 01/05/22 for Nausea/Vomiting, Elevated Blood Glucose. Chief Complaint: [POD #6 Exploration and Debridement Stacy's Gangrene] She continues to feel well and much improved. VAC in place and arrangements for home care underway. Principal diagnosis: Left groin pain Constitutional Vitals: Vital Signs Temp Pulse Resp BP Pulse Ox 96.7 F L 95 H 16 151/75 95 01/11/22 12:00 01/11/22 12:00 01/11/22 12:00 01/11/22 12:00 01/11/22 12:00 Period Temp Pulse Resp BP Sys/Sherwood Pulse Ox Last 24 Hr 96.3 F-98.6 F 77-95 6-19 134-161/59-75 95-98 Intake and Output 01/11/22 01/11/22 01/11/22 05:59 13:59 21:59 Intake Total 700 510 400 Output Total 1075 Balance -375 510 400 Weight 135 lb 5 oz Patient Weight 01/12/22 05:59 Weight 135 lb 5 oz Intake & Output: Intake & Output 01/11/22 01/11/22 01/11/22 05:59 13:59 21:59 Intake Total 700 510 400 Output Total 1075 Balance -375 510 400 Weight 135 lb 5 oz Intake: IV 100 150 Rocephin 2 gm In Dextrose 5% in 50 Water 50 ml @ 100 mls/hr IV Q24H [facility] Rx#:[id number] Flagyl 500 mg In Premix 1 Bag @ 100 100 100 mls/hr IV Q8H [facility] Rx#: [id number] Oral 600 360 400 Output: Urine Catheter Amount 1075 Other: Meal Lunch Percent of Meal Consumed 75% Feeding Ability Independent Urine Appearance Cloudy Urine Color Bright Yellow Stool Size Moderate Smear Stool Color Brown Brown Stool Consistency Liquid Loose # Bowel Movements 1 Exam: She looks very well without issue, fully alert and conversant Additional comments: VAC in place, functioning well 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
[2022-01-12] MEDS: metroNIDAZOLE 500 MG TABLET PO SCH ×2 (05:49→14:36)
[2022-01-12] MEDS: 0.9 % SODIUM CHLORIDE 10 ML SYRINGE IV SCH ×2 (05:50→14:32)
[2022-01-12] MEDS: SUCRALFATE 1 GM/10 ML ORAL.SUSP PO SCH ×2 (06:57→11:32)
[2022-01-12] MEDS: PANTOPRAZOLE 40 MG PACKET PO SCH (06:57)
[2022-01-12] MEDS: oxyCODONE/APAP 10/325MG TABLET PO PRN ×2 (06:57→12:51)
[2022-01-12] MEDS: INSULIN LISPRO 1 UNIT/0.01 ML UNIT SQ SCH ×4 (07:13→11:23)
--- NOTE | 2022-01-12 08:33 | Internal Med Progress Note ---
SUBJECTIVE Subjective Patient information: Note initiated : 01/12/22 at 8:33 am Service Date, if different from initiated Date: [] Patient: Amber Navarro 66 y/o F admitted on 01/05/22 for Nausea/Vomiting, Elevated Blood Glucose. Chief Complaint: [] Principal diagnosis: Left groin pain Interval history: Ms. Navarro is a 66 year old female with no known past medical history, presenting with general body weakness and left groin pain for 2 weeks.The patient did not recall any trauma or injury to her groin but she does shave herself. There was no prior similar episode. About 2 weeks ago she started to notice pain and swelling of her left groin around her labia majora, and it burst open spontaneously about 4 days ago. It is associated with severe aching constant pain of her entire left groin with radiation to the surrounding body regions. She is also complaining of general body weakness, decreased appetite, fever and chills. She presented to our ED due to worsening of her symptoms. Labs significant for severe leukocytosis with WBC 30.2. Initial serum potassium level 2.7, initial POC glucose 685. BUN and creatinine 38 and 0.5, respectively suggesting degree of dehydration as well. Serum bicarb of 12 and anion gap of 17. Beta hydroxybutyrate also elevated. Serum lactic acid 1.7. Pelvic CT showing 10 cm region of extensive gas and phlegmonous inflammation in the subcutaneous fat of the left lower anterior pelvic wall with extension into the left lateral perivalvular regions. Findings suggestive of Stacy's gangrene. 01/06: s/p wound debridement by Dr. Delaney yesterday. Blood and wound cultures no growth to date. afebrile overnight. Continue Vancomycin and Zosyn. Anion gas has been closed this morning with blood glucose 149-->will transition from insulin drip to SQ insulin therapy. Patient is c/o mild left groin pain, denies any fever or chills or sweating. 01/07 WBC trending up but afebrile and stable. Procalcitonin trending down. Blood pressure high today, patient able to take oral meds so increased Lisinopril to 10 mg daily. Replaced potassium and phosphorus. Increased Lantus to 30 units HS and added Humalog [address] chest/abdomen/pelvis with contrast to evaluate for other infectious process causing increase in WBC. 01/08 CT scan showed findings consistent with severe duodenitis and gastritis. Started Protonix infusion and Sucralfate, general surgery declined EGD at this time. Stool H Pylori pending. Surgical cultures grew streptococcus anginosus so far, anaerobic results pending. Deescalated antibiotics to Ceftriaxone and Flagyl IV. The patient may need a wound VAC for wound cares. 01/09 The patient feels better today, surgical culture now also grew multiple Prevotella species, WBC trending down now. Peripheral blood smear was not concerning for an underlying hematologic malignancy. Held heparin SQ for DVT prophylaxis due to multiple dark stools. H pyloric stool antigen was negative. Transitioned to oral Protonix BID. Continue Ceftriaxone and Metronidazole IV for now, awaiting final culture results. Surgery planning for wound VAC. Transfer to med/surg. 01/10 Slept well and feeling much better. Getting wound VAC today. System leukocytosis but patient is afebrile and does not appear toxic. 01/11 Patient feeling well. Potassium within normal limits. Awaiting wound VAC and discharge coordination in order to discharge home with home health. 01/12 Doing well. Awaiting placement. Review of Systems: denies headache/fever/chills/nausea/vomiting/chest or abdominal pain/cough/dyspnea. Otherwise see above. Constitutional Vitals: Vital Signs Temp Pulse Resp BP Pulse Ox 98.8 F 91 H 18 134/64 97 01/12/22 06:50 01/12/22 06:50 01/12/22 06:50 01/12/22 06:50 01/12/22 06:50 Period Temp Pulse Resp BP Sys/Sherwood Pulse Ox Last 24 Hr 96.7 F-98.8 F 90-96 16-18 110-151/53-75 95-98 Intake and Output 01/11/22 01/12/22 01/12/22 21:59 05:59 13:59 Intake Total 400 800 Output Total 825 850 Balance -425 -50 Weight 66.451 kg Intake & Output: Intake & Output 01/11/22 01/12/22 01/12/22 21:59 05:59 13:59 Intake Total 400 800 Output Total 825 850 Balance -425 -50 Weight 66.451 kg Intake: Oral 400 800 Output: Urine Catheter Amount 825 850 Other: Meal Lunch Percent of Meal Consumed 75% Feeding Ability Independent Urine Appearance Sediment Uretheral (Mcpherson) Cloudy Urine Color Bright Yellow Uretheral (Mcpherson) Bright Yellow # Bowel Movements 0 Exam: General: Alert, Awake, No acute Distress Eyes/N/T: EOMI, Head/Neck: neck supple, CV: RRR, 2/6 SM Pulm: Clear b/l, no wheezing/rhonchi/rales Abd: soft, nontender, +BS x4, large wound in right groin in dressings Ext: no clubbing/cyanosis/edema Neuro: Alert, no focal deficits, moves all extremities, Skin: warm/dry OBJ DATA Labs CBC & Chem 7: 01/11/22 05:35 01/10/22 05:59 Labs: Abnormal Lab Results 01/11/22 01/10/22 01/10/22 05:35 05:59 05:59 WBC 22.8 H 26.4 H Seg Neutrophils % 84 H Lymphocytes % 11 L RBC Morphology Abnormal A Polychromasia Few A Creatinine 0.4 L Glucose 132 H Uric Acid 2.0 L Calcium 8.1 L Phosphorus 2.1 L GGT 77 H Total Protein 5.5 L Albumin 2.2 L Albumin/Globulin Ratio 0.7 L 01/09/22 05:35 WBC Seg Neutrophils % 86 H Lymphocytes % 4 L RBC Morphology Polychromasia Creatinine Glucose Uric Acid Calcium Phosphorus GGT Total Protein Albumin Albumin/Globulin Ratio Meds: Medications Acetaminophen (Acetaminophen 325 Mg Tablet) 650 mg PO Q4-6HP PRN; Protocol PRN Reason: Per Pain Protocol/Fever > 101 Albuterol/Ipratropium (Ipratropium/Albuterol 3 Ml Ampul.Neb) 3 ml NEB Q4HRT PRN PRN Reason: Wheezing Calcium Carbonate/Glycine (Calcium Carbonate 500 Mg Tab.Chew) 500 mg CHEWED Q4HP PRN PRN Reason: Dyspepsia Last Admin: 01/07/22 13:39 Dose: 500 mg Documented by: Dextrose (Dextrose 50% 50 Ml Vial) 0 ml IV UD PRN PRN Reason: Hypoglycemia Diagnostic Test (Pha) (Accu-Chek 1 Each Strip) 1 each FS ACHS [facility] Last Admin: 01/12/22 07:00 Dose: 1 each Documented by: Docusate Sodium (Docusate Sodium 100 Mg Capsule) 100 mg PO BID [facility] Last Admin: 01/11/22 21:45 Dose: Not Given Documented by: Glucose (Dextrose 31 Gm Oral.Susp) 15 gm PO PRN PRN PRN Reason: Hypoglycemia Hydromorphone HCl (Hydromorphone 0.5 Mg/0.5 Ml Syringe) 0.5 mg IV Q2HP PRN; Protocol PRN Reason: Per Pain Protocol Last Admin: 01/10/22 13:37 Dose: 0.5 mg Documented by: Acetaminophen (Ofirmev) 650 mg in 65 mls @ 130 mls/hr IV Q6HP PRN; Protocol PRN Reason: PAIN/FEVER > 101 Last Infusion: 01/06/22 23:30 Dose: Infused Documented by: Ceftriaxone Sodium 2 gm/ (Dextrose) 50 mls @ 100 mls/hr IV Q24H [facility]; Protocol Last Infusion: 01/11/22 11:04 Dose: Infused Documented by: Insulin Glargine (Insulin Glargine, Human 1 Unit/0.01 Ml) 30 unit SQ DAILY [facility] Last Admin: 01/11/22 09:14 Dose: 30 units Documented by: Insulin Human Lispro (Insulin Lispro 1 Unit/0.01 Ml Unit) 5 unit SQ AC [facility] Last Admin: 01/11/22 17:19 Dose: 5 units Documented by: Insulin Human Lispro (Insulin Lispro 1 Unit/0.01 Ml Unit) 0 unit SQ [facility]; Protocol Last Admin: 01/12/22 07:13 Dose: Not Given Documented by: Labetalol HCl (Labetalol 5 Mg/Ml Ml) 10 mg IV Q10M PRN PRN Reason: Blood Pressure - High Lisinopril (Lisinopril 5 Mg Tablet) 10 mg PO DAILY [facility] Last Admin: 01/11/22 09:12 Dose: 10 mg Documented by: Metoclopramide HCl (Metoclopramide 10 Mg/2 Ml Vial) 10 mg IV Q6HP PRN PRN Reason: Nausea And Vomiting Last Admin: 01/06/22 09:05 Dose: 10 mg Documented by: Metronidazole (Metronidazole 500 Mg Tablet) 500 mg PO Q8 [facility] Last Admin: 01/12/22 05:49 Dose: 500 mg Documented by: Ondansetron HCl (Ondansetron 4 Mg/2 Ml Vial) 4 mg IV Q4-6HP PRN; Protocol PRN Reason: Nausea And Vomiting Last Admin: 01/06/22 19:01 Dose: 4 mg Documented by: Oxycodone/Acetaminophen (Oxycodone/Apap 10/325mg Tablet) 1 tab PO Q4-6HP PRN; Protocol PRN Reason: Per Pain Protocol Last Admin: 01/12/22 06:57 Dose: 1 tab Documented by: Pantoprazole Sodium (Pantoprazole 40 Mg Packet) 40 mg PO BIDAC [facility] Last Admin: 01/12/22 06:57 Dose: 40 mg Documented by: Senna (Sennosides 8.8 Mg/5 Ml Ml) 8.8 mg PT DAILY PRN PRN Reason: Constipation Sodium Chloride (0.9 % Sodium Chloride 10 Ml Syringe) 10 ml IV Q8 [facility] Last Admin: 01/12/22 05:50 Dose: 10 ml Documented by: Sucralfate (Sucralfate 1 Gm/10 Ml Oral.Susp) 1 gm PO ACHS [facility] Last Admin: 01/12/22 06:57 Dose: 1 gm Documented by: ABG Interpretation ABG results: 01/05/22 01/05/22 01/05/22 16:06 20:05 23:51 ABG Methemoglobin 0.1 L 0 L 0 L VBG pH 7.18 L* 7.31 L 7.33 VBG pCO2 37.9 L 27.6 L 23.8 L VBG pO2 55.4 H 67.9 H 87.1 H VBG HCO3 13.9 L 13.7 L 12.4 L VBG Total CO2 15.1 L 14.6 L 13.1 L VBG O2 Saturation 80.4 H 88.4 H 94.5 H VBG Base Excess -14 L -11 L -12 L 01/06/22 04:07 ABG Methemoglobin 0.1 L VBG pH 7.30 L VBG pCO2 30.9 L VBG pO2 46.7 H VBG HCO3 14.9 L VBG Total CO2 15.8 L VBG O2 Saturation 79.8 H VBG Base Excess -10 L A/P Narrative A/P Narrative: 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 Stable -peripheral blood smear was negative for dysplastic changes or blasts #Hypokalemia/phos: Improved #Diabetes mellitus (new diagnosis): -hgb A1C was 10.4 #DKA: Resolved #Hypertension: previously untreated #Generalized weakness Plan -IV Ceftriaxone/Metronidazole to PO Amoxacillin/flagyl -cont oral Protonix BID, Sucralfate QID. f/u with with surgery/GI for EGD 4-6 weeks -Lantus 30 qHS, Humalog 5 AC, SSI -Continue Lisinopril -General surgery following, wound VAC today. -mcpherson catheter per surgery, leave in place until wound more matured and controlled -PPx: SCD (Heparin held d/t suspected GI bleed from esophagitis/duodenitis) / ppi CODE STATUS: DNR/DNI Time Spent With Patient Time: Total time spent is greater than 50% in coordination of care (as documented) at patient's floor/unit and/or counseling patient: QUALITY VTE Deep Vein Thrombosis/Pulmonary Embolism Present on Admission: No
[2022-01-12] MEDS: INSULIN GLARGINE, HUMAN 1 UNIT/0.01 ML SQ SCH (09:20)
[2022-01-12] MEDS: DOCUSATE SODIUM 100 MG CAPSULE PO SCH (09:21)
[2022-01-12] MEDS: cefTRIAXone 2 GM in DEXTROSE 5% IN WATER 50 ML IV SCH (09:21)
[2022-01-12] MEDS: LISINOPRIL 5 MG TABLET PO SCH (09:21)
== END 2022-01-12 15:15 | disposition home health service (06) | DRG 853 ==
LOC: ED 10:11 → SUR 14:00 → ICU 15:50 → MEDSUR 01-11 02:15
PROVIDERS: ADMIT Internal Medicine; ATTEND Internal Medicine